=== PATIENT | male | born 1960 | race Caucasian/White ===

== ENCOUNTER 2017-03-02 11:17 | Emergency (ER) | payer OTHER ==
--- NOTE | 2017-03-02 11:46 | ER Document Report ---
ED Medical Screen (RME) - General Chief Complaint: Suicidal Ideation Stated Complaint: SUICIDAL IDEATION Time Seen by Provider: 03/02/17 11:39 Notes: Pt says he is thinking of hurting himself. Pt lives alone. Has tried to kill himself before. Has previous pysch admissions. Says he hears voices telling him to hurt himself. TRAVEL OUTSIDE OF THE [place] IN LAST 30 DAYS: No - Related Data Allergies/Adverse Reactions: No Known Allergies Allergy (Unverified 09/14/11 03:38) Past Medical History - Social History Frequency of alcohol use: None Drug Abuse: None - Past Medical History Cardiac Medical History: Reports: Hx Hypercholesterolemia, Hx Hypertension Renal/ Medical History: Denies: Hx Peritoneal Dialysis Psychiatric Medical History: Reports: Hx Schizophrenia - Immunizations Hx Diphtheria, Pertussis, Tetanus Vaccination: Yes Physical Exam - Vital signs Vitals: Temp Pulse Resp BP Pulse Ox 98.6 F 87 16 173/109 H 96 03/02/17 11:29 03/02/17 11:29 03/02/17 11:29 03/02/17 11:29 03/02/17 11:29 Course - Vital Signs Vital signs: Temp Pulse Resp BP Pulse Ox 98.6 F 87 20 173/109 H 96 03/02/17 11:29 03/02/17 11:29 03/02/17 11:36 03/02/17 11:29 03/02/17 11:29
[2017-03-02 12:34] LABS: APPEARANCE,URINE CLEAR; BILIRUBIN,URINE NEGATIVE (NEGATIVE); GLUCOSE, URINE 50 mg/dL (NEGATIVE); KETONES,URINE NEGATIVE (NEGATIVE); LEUKOCYTE ESTERASE,URINE NEGATIVE (NEGATIVE); NITRITE,URINE NEGATIVE (NEGATIVE); PROTEIN,URINE NEGATIVE (NEGATIVE); URINE SPECIFIC GRAVITY 1.003; UROBILINOGEN,URINE NEGATIVE mg/dL (<2.0)
[2017-03-02 12:52] LABS: URINE BARBITURATES SCREEN NEGATIVE; URINE METHADONE SCREEN NEGATIVE; URINE OPIATES LOW NEGATIVE; URINE PHENCYCLIDINE SCREEN NEGATIVE
[2017-03-02 12:54] LABS: ABSOLUTE BASOPHILS # (AUTO) 0.1 10^3/uL (0.0-0.2); ABSOLUTE EOSINOPHILS # (AUTO) 0.1 10^3/uL (0.0-0.6); ABSOLUTE LYMPHOCYTES (AUTO) 3.4 10^3/uL (0.5-4.7); ABSOLUTE MONOCYTES (AUTO) 0.6 10^3/uL (0.1-1.4); BASOPHILS % (AUTO) 1.4 % (0-2); HEMATOCRIT 43.5 % (37.9-51.0); HEMOGLOBIN 14.9 g/dL (13.5-17.0); HGB HCT DIFFERENCE 1.2; MEAN CORPUSCULAR HGB CONC 34.2 g/dL (32.0-36.0); MEAN CORPUSCULAR VOLUME 94 fl (80-97); MONOCYTES % (AUTO) 6.2 % (3-13); RED BLOOD COUNT 4.65 10^6/uL (4.35-5.55); SEGMENTED NEUTROPHILS % (AUTO) 58.4 % (42-78); WHITE BLOOD COUNT 10.3 10^3/uL (4.0-10.5)
--- NOTE | 2017-03-02 13:06 | ER Document Report ---
ED Psych Disorder / Suicide - General Mode of Arrival: Ambulatory Information source: Patient TRAVEL OUTSIDE OF THE [place] IN LAST 30 DAYS: No <MARKUS SHI - Last Filed: 03/02/17 13:23> <SUZE JJ - Last Filed: 03/02/17 18:18> <ANDI FENTON - Last Filed: 03/04/17 09:37> <MILES LANDRY - Last Filed: 03/04/17 09:58> - General Chief Complaint: Suicidal Ideation Stated Complaint: SUICIDAL IDEATION Time Seen by Provider: 03/02/17 11:39 Notes: Patient is a 56 year old male with history of schizophrenia that presents to the emergency department today with complaints of homicidal and suicidal ideation. Patient states that his harm thoughts are "towards everyone", no one in particular. Patient states he has been off of his psychiatric medications for one week because he ran out. Patient admits to cocaine usage recently. ( MARKUS SHI) - Related Data Allergies/Adverse Reactions: No Known Allergies Allergy (Verified 03/02/17 12:50) Home Medications: Current Home Medications Chlorpromazine HCl 50 mg PO DAILYP PRN 03/02/17 [History] Chlorpromazine HCl [Thorazine 50 mg Tablet] 200 mg PO QHS 03/02/17 [History] Hydroxyzine Pamoate 100 mg PO QHS 03/02/17 [History] Levothyroxine Sodium 200 mcg PO QAM 03/02/17 [History] Meloxicam 15 mg PO DAILY PRN 03/02/17 [History] Paroxetine HCl 40 mg PO QAM 03/02/17 [History] Past Medical History - General Information source: Patient, [facility] Records - Social History Smoking Status: Current Every Day Smoker Cigarette use (# per day): Yes Frequency of alcohol use: None Drug Abuse: None Lives with: Family Family History: Reviewed & Not Pertinent Patient has suicidal ideation: Yes Patient has homicidal ideation: Yes - Past Medical History Cardiac Medical History: Reports: Hx Hypercholesterolemia, Hx Hypertension Psychiatric Medical History: Reports: Hx Schizophrenia Surgical Hx: Negative - Immunizations Hx Diphtheria, Pertussis, Tetanus Vaccination: Yes <MARKUS SHI - Last Filed: 03/02/17 13:23> Review of Systems - Review of Systems Constitutional: No symptoms reported EENT: No symptoms reported Cardiovascular: No symptoms reported Respiratory: No symptoms reported Gastrointestinal: No symptoms reported Genitourinary: No symptoms reported Male Genitourinary: No symptoms reported Musculoskeletal: No symptoms reported Skin: No symptoms reported Hematologic/Lymphatic: No symptoms reported Neurological/Psychological: See HPI, Homicidal ideation, Suicidal ideation -: Yes All other systems reviewed and negative <MARKUS SHI - Last Filed: 03/02/17 13:23> Physical Exam <MARKUS SHI - Last Filed: 03/02/17 13:23> <SUZE JJ - Last Filed: 03/02/17 18:18> <ANDI FENTON - Last Filed: 03/04/17 09:37> <MILES LANDRY - Last Filed: 03/04/17 09:58> - Vital signs Vitals: Temp Pulse Resp BP Pulse Ox 98.6 F 87 16 173/109 H 96 03/02/17 11:29 03/02/17 11:29 03/02/17 11:29 03/02/17 11:29 03/02/17 11:29 - Notes Notes: Physical Exam: General: Alert. HEENT: Normocephalic. Atraumatic. PERRLA. Extraocular movements intact. Oropharynx clear. Neck: Supple. Respiratory: No respiratory distress. Abdominal: Normal Inspection. No distension. Extremities: Moves all four extremities. Neurological: Normal cognition. AAOx4. Normal speech. Some facial dystonia, rocking back and forth in the bed. Psychological: Endorses suicidal and homicidal ideation towards "every one". Skin: Warm. Dry. Normal color. (MARKUS SHI) Course - Laboratory Result Diagrams: 03/02/17 12:40 03/02/17 12:00 <MARKUS SHI - Last Filed: 03/02/17 13:23> - Laboratory Result Diagrams: 03/02/17 12:40 03/02/17 12:00 <SUZE JJ - Last Filed: 03/02/17 18:18> - Laboratory Result Diagrams: 03/02/17 12:40 03/02/17 12:00 <ANDI FENTON - Last Filed: 03/04/17 09:37> - Laboratory Result Diagrams: 03/02/17 12:40 03/02/17 12:00 <MILES LANDRY - Last Filed: 03/04/17 09:58> - Vital Signs Vital signs: Temp Pulse Resp BP Pulse Ox 98.5 F 77 18 139/75 H 99 03/04/17 06:14 03/04/17 06:14 03/04/17 06:14 03/04/17 06:14 03/04/17 06:14 - Laboratory Laboratory results interpreted by me: 03/02/17 03/02/17 03/02/17 12:00 12:00 12:40 RDW 15.0 H Creatinine 1.35 H Est GFR (Non-Af Amer) 54 L Direct Bilirubin 0.5 H ALT 20 L Urine Glucose (UA) 50 H Salicylates < 1.0 L Acetaminophen < 10 L Discharge <MARKUS SHI - Last Filed: 03/02/17 13:23> <SUZE JJ - Last Filed: 03/02/17 18:18> <ANDI FENTON - Last Filed: 03/04/17 09:37> <MILES LANDRY - Last Filed: 03/04/17 09:58> - Discharge Clinical Impression: Suicidal ideations, Has run out of medications, Schizoaffective disorder, bipolar type Depression Qualifiers: Depression Type: unspecified Qualified Code(s): F32.9 - Major depressive disorder, single episode, unspecified Condition: Stable Disposition: HOME, SELF-CARE Additional Instructions: DEPRESSION: Your evaluation reveals that you have mental depression. While symptoms may be vague, they often include disturbance of sleep, fatigue, loss of appetite , and general loss of interest in life. While depression may be a side effect of drugs, or a reaction to a major change in your life, many cases have no known cause. If depression is acute, and related to a major loss in your life, you can expect it to clear completely with time. If you have been depressed a long time , are prone to repeated bouts of depression or low mood, or have been thinking of suicide, get help. Depression can be treated with anti-depressant medication and counselling. Long-term depression will often take a few weeks to clear, even with appropriate medication. Follow-up care is important. SUICIDAL IDEATION: Suicidal ideation is a common medical term for thoughts about suicide, which may be as detailed as a formulated plan, without the suicidal act itself. Although most people who undergo suicidal ideation do not commit suicide, some go on to make suicide attempts. The range of suicidal ideation varies greatly from fleeting to detailed planning, role playing, and unsuccessful attempts. While thoughts about suicide are common, most people do not carry out serious actions to commit suicide. Based upon your evaluation and discussion with you, we do not believe you are currently at risk to act upon your thoughts of suicide. You have agreed to return to the Emergency Department, at any time , if you feel inclined to act upon your suicidal thoughts. FOLLOW-UP CARE: Please follow-up with your outpatient provider, the [facility], at 11:00 today. If you experience worsening or a significant change in your symptoms, notify the physician immediately or return to the Emergency Department at any time for re- evaluation. Referrals: [facility] [Provider Group] - 03/04/17 11:00 am Scribe Attestation: 03/02/17 17:08 I personally performed the services described in the documentation, reviewed and edited the documentation which was dictated to the scribe in my presence, and it accurately records my words and actions. (SUZE JJ) Scribe Documentation - Scribe Written by Daniel:: Daniel Toscano, 03/02/2017 1329 acting as scribe for :: Zay <MARKUS SHI - Last Filed: 03/02/17 13:23>
[2017-03-02 13:09] LABS: ALANINE AMINOTRANSFERASE 20 U/L (21-72); ALBUMIN 4.4 g/dL (3.5-5.0); ALKALINE PHOSPHATASE 78 U/L (38-126); ANION GAP 13 (5-19); ASPARTATE AMINO TRANSFERASE 28 U/L (17-59); BILIRUBIN,DIRECT 0.5 mg/dL (0.0-0.4); BILIRUBIN,TOTAL 0.8 mg/dL (0.2-1.3); BLOOD UREA NITROGEN 18 mg/dL (7-20); CALCIUM 9.4 mg/dL (8.4-10.2); CARBON DIOXIDE 26 mmol/L (22-30); CHLORIDE 105 mmol/L (98-107); CREATININE RESULT 1.35 mg/dL (0.52-1.25); GLUCOSE 83 mg/dL (75-110); POTASSIUM 4.4 mmol/L (3.6-5.0); SODIUM 144.1 mmol/L (137-145); TOTAL PROTEIN 7.8 g/dL (6.3-8.2)
[2017-03-02 13:15] LABS: ALCOHOL < 10 mg/dL (NONE DETECTED)
--- NOTE | 2017-03-02 13:23 | PSYCHOLOGICAL NOTE ---
Psych Note - Psych Note Psych Note: Patient is a 56-year-old male who presents directly [facility] with complaints of homicidal and suicidal ideations. Patient reports he is diagnosed with schizoaffective disorder bipolar type and has been off of his medications for roughly 1 week. Patient states he was struggling with a depressive episode, and did not go and visit his father at the senior living who shortly after. Patient states this occurred last week and at that time patient stopped taking his medications and did not leave the house. Patient states he is technically homeless but is residing in his family home which belonged to his mother but was left to he and his siblings. Patient states his siblings reside there as well and they do not get along. Patient reports he is struggling with racing thoughts wanting to hurt himself and hurt others patient denies wanting to hurt specific individuals patient reports he has attempted suicide in the past and states it was in 1987. Patient states [facility] and [facility] which he reports he is historically compliant apart from this episode. Patient reports he is hearing voices telling him to hurt himself and others who he thinks are after him or talking about him. Patient is alert and oriented mood is anxious with congruent affect. Patient is unable to maintain eye contact. Patient endorses suicidal and homicidal ideations but does deny means or plan. Patient endorses auditory command hallucinations. Patient denies visual hallucinations. Delusions were Noted when patient discussed feeling as though others were out to get him etc. Thought processes were guarded. Conversational speech was blunted. Intellectual abilities were estimated within average range. Attention and focus was poor. Insight, judgment, impulse control was fair as evidenced by [facility]. 295.70( F25.0) Schizoaffective disorder bipolar type It is recommended for involuntary commitment for further evaluation and disposition. Patient presents as a danger to himself and possibly others due to his thoughts of harming himself and others, medication noncompliance, auditory command hallucinations telling him to harm self and others, etc. I consulted with Dr. Gonzales in regards to the care management of this patient. EDMD is in agreement with disposition and recommendations.
--- NOTE | 2017-03-02 21:42 | EKG REPORT ---
SEVERITY:- ABNORMAL ECG - SINUS RHYTHM PROBABLE LEFT ATRIAL ABNORMALITY CONSIDER RIGHT VENTRICULAR HYPERTROPHY BORDERLINE R WAVE PROGRESSION, ANTERIOR LEADS ABNORMAL T, CONSIDER ISCHEMIA, LATERAL LEADS : Confirmed by: Fernanda Saucedo 02-Mar-2017 21:41:59
[2017-03-03] MEDS ORDERED: LORAZEPAM 1 MG TABLET PO ONE (04:20)
--- NOTE | 2017-03-03 04:21 | ER Document Report ---
Doctor's Note Notes: 03/03/17 04:21 Nurse confirmed the patient's been very anxious throughout the night and has been having hard time staying still. No and spoke with the patient. He is very anxious. Says he often a hard time sleeping. Is very fidgety in bed. I will order some Ativan to see if this helps calm him down. He has no other concerns or complaints at this time is actually very cooperative and pleasant despite his anxiety.
--- NOTE | 2017-03-03 08:37 | PSYCHOLOGICAL NOTE ---
Psych Note - Psych Note Psych Note: Conducted check in on patient who is a 56-year-old male under involuntary commitment at [facility]. Patient initially presented yesterday directly from the [facility] clinic due to suicidal and homicidal ideations, medication noncompliance, auditory hallucinations, and paranoia. A review of patient's EMR from overnight suggests he was cooperative, but anxious. EDMD did choose to continue patient's home medications yesterday as patient stated they were working for years when he took them; however, no medications were administered with the exception of one dose of Ativan to address his anxiety overnight. Did follow up with nurse this morning who is requesting clarification from pharmacy. Patient himself states he struggled sleeping, is restless, feels as though people are chasing him/following him. Patient reports continued racing thoughts. Patient is observed to be restless, moving around in bed, and anxious. Patient is alert and oriented mood is anxious and labile with congruent affect. Patient endorses suicidal and homicidal ideations but denies plan or means. Patient endorses auditory hallucinations commanding him to harm others. Delusions were noted and that patient feels people are out to get him. Thought processes were organized. Conversational speech was within normal limits for rate, tone, and prosody for this patient. Intellectual abilities were estimated within average range. Attention and focus were poor. Insight, judgment, impulse control were poor to fair. 295.70( F25.0) Schizoaffective disorder bipolar type It is recommended for involuntary commitment for further evaluation and disposition. Patient presents as a danger to himself and possibly others due to his thoughts of harming himself and others, medication noncompliance, auditory command hallucinations telling him to harm self and others, etc. I consulted with Dr. Gonzales in regards to the care management of this patient. EDDE is in agreement with disposition and recommendations.
[2017-03-03] MEDS ORDERED: CHLORPROMAZINE HCL 50 MG TABLET PO PRN (08:59)
[2017-03-03] MEDS ORDERED: MELOXICAM 15 MG TABLET PO PRN (08:59)
[2017-03-03] MEDS ORDERED: LEVOTHYROXINE SODIUM 0.1 MG TABLET PO ONE ×2 (10:00→10:15)
[2017-03-03] MEDS ORDERED: FLUOXETINE HCL 20 MG CAPSULE PO SCH (10:00)
[2017-03-03] MEDS ORDERED: PAROXETINE HCL 20 MG TABLET PO ONE (10:00)
[2017-03-03] MEDS ORDERED: BENZTROPINE MESYLATE 1 MG TABLET PO SCH (10:00)
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
[2017-03-03] MEDS ORDERED: HYDROXYZINE PAMOATE 50 MG CAPSULE PO SCH (22:00)
[2017-03-03] MEDS ORDERED: HYDROXYZINE PAMOATE 100 MG PO SCH (22:00)
[2017-03-03] MEDS ORDERED: CHLORPROMAZINE HCL 50 MG TABLET PO SCH (22:00)
[2017-03-04] MEDS ORDERED: PAROXETINE HCL 20 MG TABLET PO SCH (08:00)
[2017-03-04] MEDS ORDERED: PAROXETINE HCL 40 MG PO SCH (08:00)
[2017-03-04] MEDS ORDERED: (PENDING PHARMACY ID) (Levothyroxine Sodium [Levothyroxine Sodium] 200 MCG) PO SCH (08:00)
[2017-03-04] MEDS ORDERED: LEVOTHYROXINE SODIUM 0.1 MG TABLET PO SCH (08:00)
--- NOTE | 2017-03-04 09:37 | PSYCHOLOGICAL NOTE ---
Psych Note - Psych Note Psych Note: Conducted check in on patient: Patient disclosed he is "feeling a lot better... A lot safer." Patient states that "I could not focus anymore in something just happened... Something snapped. " Patient disclosed he was not eating and was in deep depression because his dad had . Patient states that the medication has helped a lot and denies current suicidal or homicidal ideation. Patient is alert and orientated to person, place, time and circumstance. Mood is euthymic with congruent affect; patient opening engaging with clinician and smiled. Patient denies current suicidal and homicidal ideation now that he is therapeutic on his medications. Delusions are absent and behaviors congruent with intact reality based presentation i.e. organized, linear, rational thinking. Eye contact was good. Conversational speech was within normal rate tone and prosody. Intellectual abilities appear to be within the average range. Attention and concentration were good. Insight, judgment, impulse control is fair due to patient's history of noncompliant on medication. Behavioral health team contacted [facility], patient's outpatient provider. Patient was last seen on Thursday03/02/2017 by his provider. [facility] was able to schedule an appointment for today at 11am. 295.70( F25.0) Schizoaffective disorder bipolar type It is recommended for rescinded involuntary commitment and is considered psychiatrically cleared. Patient no longer meets IVC criteria per [place] GS 122C. Patient denies current suicidal and homicidal ideation now that he is therapeutic on his medications. Delusions are absent and behaviors congruent with intact reality based presentation i.e. organized, linear, rational thinking. Patient has a follow up appointment with his mental health provider at the [facility] for today at 1100. Dr. Gonzales was consulted and the care and management of this patient; attending physician in agreement with recommendations and disposition.
--- NOTE | 2017-03-04 10:10 | ER Document Report ---
Doctor's Note Notes: 03/04/17 10:08 Rounds: Chart reviewed and patient interviewed. Patient says he is doing "much better". Denies having any suicidal thoughts at this time. Vital signs are normal. No new labs to review. Previously positive for cocaine. Patient appears to be medically stable for transfer or discharge. Mental health feels the patient can be discharged for outpatient follow-up at the [facility] clinic. Eyal Car MD
[2017-03-04 10:53] VITALS: BP 121/74
== END 2017-03-04 10:23 | disposition home or self-care (01) ==
LOC: ER 11:17
DX: F25.0 Schizoaffective disorder, bipolar type (principal); R45.851 Suicidal ideations; R45.850 Homicidal ideations; E78.00 Pure hypercholesterolemia, unspecified; I10 Essential (primary) hypertension; F17.210 Nicotine dependence, cigarettes, uncomplicated
CPT/HCPCS: 93005; 99285; 36415; 80307 ×4; 85025; 80053; 81001; 93010; J3490

== ENCOUNTER 2018-01-06 17:29 | Observation (INO) | payer SELFPAY ==
[2018-01-06] MEDS ORDERED: ASPIRIN 81 MG TABLET, CHEWABLE PO ONE (17:32)
[2018-01-06 17:51] LABS: ABSOLUTE EOSINOPHILS # (AUTO) 0.1 10^3/uL (0.0-0.6); ABSOLUTE MONOCYTES (AUTO) 0.6 10^3/uL (0.1-1.4); ABSOLUTE NEUT (AUTO) 6.6 10^3/uL (1.7-8.2); BASOPHILS % (AUTO) 0.5 % (0-2); EOSINOPHILS % (AUTO) 0.9 % (0-6); HEMATOCRIT 46.5 % (37.9-51.0); HEMOGLOBIN 15.8 g/dL (13.5-17.0); LYMPHOCYTES % (AUTO) 29.1 % (13-45); MEAN CORPUSCULAR HEMOGLOBIN 30.8 pg (27.0-33.4); MEAN CORPUSCULAR HGB CONC 34.1 g/dL (32.0-36.0); MEAN CORPUSCULAR VOLUME 90 fl (80-97); MONOCYTES % (AUTO) 6.1 % (3-13); PLATELET COUNT 234 10^3/uL (150-450); RED BLOOD COUNT 5.14 10^6/uL (4.35-5.55); RED CELL DISTRIBUTION WIDTH 13.8 % (11.5-14.0); SEGMENTED NEUTROPHILS % (AUTO) 63.4 % (42-78); TOTAL CELLS COUNTED % (AUTO) 100 %; WHITE BLOOD COUNT 10.4 10^3/uL (4.0-10.5)
--- NOTE | 2018-01-06 18:01 | RADIOLOGY REPORT (SQ) ---
EXAM DESCRIPTION: CHEST SINGLE VIEW COMPLETED DATE/TIME: 01/06/2018 5:47 pm REASON FOR STUDY: bed 18 svt COMPARISON: None. EXAM PARAMETERS: NUMBER OF VIEWS: One view. TECHNIQUE: Single frontal radiographic view of the chest acquired. RADIATION DOSE: NA LIMITATIONS: None. FINDINGS: LUNGS AND PLEURA: No consolidation, masses or pneumothorax. No pleural effusion. MEDIASTINUM AND HILAR STRUCTURES: Age-appropriate. HEART AND VASCULAR STRUCTURES: Heart normal in size. Normal vasculature. BONES: No acute findings. HARDWARE: None in the chest. OTHER: No other significant finding. IMPRESSION: NO ACUTE RADIOGRAPHIC FINDING IN THE CHEST. TECHNICAL DOCUMENTATION: JOB ID: [id number] 2010 [employer]- All Rights Reserved Reading location - IP/workstation name: [email or web address]
[2018-01-06 18:09] LABS: ALANINE AMINOTRANSFERASE 14 U/L (21-72); ALBUMIN 4.5 g/dL (3.5-5.0); ALKALINE PHOSPHATASE 95 U/L (38-126); ANION GAP 16 (5-19); ASPARTATE AMINO TRANSFERASE 21 U/L (17-59); BILIRUBIN,DIRECT 0.3 mg/dL (0.0-0.4); BILIRUBIN,TOTAL 1.3 mg/dL (0.2-1.3); BLOOD UREA NITROGEN 11 mg/dL (7-20); CARBON DIOXIDE 21 mmol/L (22-30); CHLORIDE 108 mmol/L (98-107); CREATINE KINASE 55 U/L (55-170); GLUCOSE 101 mg/dL (75-110); POTASSIUM 4.1 mmol/L (3.6-5.0)
--- NOTE | 2018-01-06 18:35 | RADIOLOGY REPORT (SQ) ---
EXAM DESCRIPTION: CT HEAD WITHOUT COMPLETED DATE/TIME: 01/06/2018 6:23 pm REASON FOR STUDY: confusion COMPARISON: 09/23/2011 TECHNIQUE: Axial images acquired through the brain without intravenous contrast. Images reviewed wi th bone, brain and subdural windows. Additional sagittal and coronal reconstructions were generated. Images stored on PACS. All CT scanners at this facility use dose modulation, iterative reconstruction, and/or weight based d osing when appropriate to reduce radiation dose to as low as reasonably achievable (ALARA). [facility]: Dose Right [facility]: CareDose [facility]: Dose Right [facility]: Teradose 4D [facility]: Smart Telepo RADIATION DOSE: CT Rad equipment meets quality standard of care and radiation dose reduction techniq ues were employed. CTDIvol: 53.2 mGy. DLP: 1150 mGy-cm. mGy. LIMITATIONS: None. FINDINGS: VENTRICLES: Normal size and contour. CEREBRUM: No masses. No hemorrhage. No midline shift. No evidence for acute infarction. Normal gra y/white matter differentiation. No areas of low density in the white matter. CEREBELLUM: No masses. No hemorrhage. No alteration of density. No evidence for acute infarction. EXTRAAXIAL SPACES: No fluid collections. No masses. ORBITS AND GLOBE: No intra- or extraconal masses. Normal contour of globe without masses. CALVARIUM: No fracture. PARANASAL SINUSES: No fluid or mucosal thickening. SOFT TISSUES: No mass or hematoma. OTHER: No other significant finding. IMPRESSION: NORMAL BRAIN CT WITHOUT CONTRAST. EVIDENCE OF ACUTE STROKE: NO. COMMENT: Quality ID # [id number]: Final reports with documentation of one or more dose reduction techniques (e.g., Automated exposure control, adjustment of the mA and/or kV according to patient size, use of iterative reconstruction technique) TECHNICAL DOCUMENTATION: JOB ID: [id number] [employer]- All Rights Reserved Reading location - IP/workstation name: [email or web address]
[2018-01-06] MEDS ORDERED: NORMAL SALINE 1000 ML 1,000 ML IV ONE ×2 (18:37→20:03)
--- NOTE | 2018-01-06 18:39 | ER Document Report ---
ED General - General Chief Complaint: Chest Pain Stated Complaint: HEART ISSUES Time Seen by Provider: 01/06/18 17:41 Mode of Arrival: Medic Information source: Patient, Emergency Med Personnel, [facility] Records Cannot obtain history due to: Altered mental status Notes: 57-year-old male with hypertension, hyperlipidemia, schizophrenia presents via EMS after they were called by [employer] when the patient was found panhandling. Upon EMS arrival they found the patient's heart rate to be 170 and ekg monitor tech appeared that the rhythm was SVT. Patient was given 6 mg of adenosine and converted. They report an episode of hypotension which resolved prior to arrival. Patient did receive 500 cc of IV fluids prior to arrival. Upon my exam patient is confused but admits to suicidal ideation. When asked about homicidal ideation he states "yes I want to kill the people who are laying the carpet". He does admit to visual hallucinations of dogs in his room. He also admits to auditory hallucinations which tell him that "I am a bad person and I need to straighten up". Patient cannot tell me whether or not he has been compliant with his psychiatric medications. He states he is currently living with his brother. he has no physical complaints at this time. TRAVEL OUTSIDE OF THE [place] IN LAST 30 DAYS: No - HPI Onset: Just prior to arrival Onset/Duration: Sudden Quality of pain: No pain Severity: None - Related Data Allergies/Adverse Reactions: No Known Allergies Allergy (Verified 03/02/17 12:50) Past Medical History - General Information source: Patient, Emergency Med Personnel, [facility] Records Cannot obtain history due to: Altered mental status - Social History Smoking Status: Unknown if Ever Smoked Drug Abuse: Cocaine Lives with: Family Family History: Reviewed & Not Pertinent Patient has suicidal ideation: No Patient has homicidal ideation: No - Past Medical History Cardiac Medical History: Reports: Hx Hypercholesterolemia, Hx Hypertension Renal/ Medical History: Denies: Hx Peritoneal Dialysis Psychiatric Medical History: Reports: Hx Schizophrenia - Immunizations Hx Diphtheria, Pertussis, Tetanus Vaccination: Yes Review of Systems - Review of Systems -: Yes ROS unobtainable due to patient's medical condition Physical Exam - Vital signs Vitals: Resp 18 01/06/18 17:32 - Notes Notes: PHYSICAL EXAMINATION: GENERAL: Unkept, no acute distress. HEAD: Atraumatic, normocephalic. EYES: Pupils equal round and reactive to light, extraocular movements intact, sclera anicteric, conjunctiva are normal. ENT: Nares patent, oropharynx clear without exudates. Dry mucous membranes. NECK: Normal range of motion, supple without lymphadenopathy LUNGS: Breath sounds clear to auscultation bilaterally and equal. No wheezes rales or rhonchi. HEART: Regular rate and rhythm without murmurs ABDOMEN: Soft, nontender, nondistended abdomen. No guarding, no rebound. No masses appreciated. Musculoskeletal: Normal range of motion, no pitting or edema. No cyanosis. NEUROLOGICAL: Cranial nerves grossly intact. Normal sensory, motor exams. Patient is confused but cooperative. GCS 15 PSYCH: Admits to suicidal ideation, homicidal ideation, visual and auditory hallucinations. SKIN: Warm, Dry, normal turgor, no rashes or lesions noted. Course - Re-evaluation Re-evalutation: Laboratory 01/06/18 01/06/18 01/06/18 16:10 16:10 16:10 WBC 10.4 RBC 5.14 Hgb 15.8 Hct 46.5 MCV 90 MCH 30.8 MCHC 34.1 RDW 13.8 Plt Count 234 Seg Neutrophils % 63.4 Lymphocytes % 29.1 Monocytes % 6.1 Eosinophils % 0.9 Basophils % 0.5 Absolute Neutrophils 6.6 Absolute Lymphocytes 3.0 Absolute Monocytes 0.6 Absolute Eosinophils 0.1 Absolute Basophils 0.0 Sodium 145.0 Potassium 4.1 Chloride 108 H Carbon Dioxide 21 L Anion Gap 16 BUN 11 Creatinine 1.83 H Est GFR ( Amer) 46 L Est GFR (Non-Af Amer) 38 L Glucose 101 Calcium 10.0 Total Bilirubin 1.3 Direct Bilirubin 0.3 Neonat Total Bilirubin Not Reportable Neonat Direct Bilirubin Not Reportable Neonat Indirect Bili Not Reportable AST 21 ALT 14 L Alkaline Phosphatase 95 Creatine Kinase 55 CK-MB (CK-2) 0.66 Troponin I < 0.012 Total Protein 8.0 Albumin 4.5 Salicylates Acetaminophen Serum Alcohol 01/06/18 01/06/18 16:10 22:46 WBC RBC Hgb Hct MCV MCH MCHC RDW Plt Count Seg Neutrophils % Lymphocytes % Monocytes % Eosinophils % Basophils % Absolute Neutrophils Absolute Lymphocytes Absolute Monocytes Absolute Eosinophils Absolute Basophils Sodium Potassium Chloride Carbon Dioxide Anion Gap BUN Creatinine Est GFR ( Amer) Est GFR (Non-Af Amer) Glucose Calcium Total Bilirubin Direct Bilirubin Neonat Total Bilirubin Neonat Direct Bilirubin Neonat Indirect Bili AST ALT Alkaline Phosphatase Creatine Kinase CK-MB (CK-2) Troponin I 0.032 Total Protein Albumin Salicylates < 1.0 L Acetaminophen < 10 L Serum Alcohol < [address] 01/06/18 00:00 IMPRESSION: NORMAL BRAIN CT WITHOUT CONTRAST. EVIDENCE OF ACUTE STROKE: NO. Chest X-Ray 01/06/18 17:32 IMPRESSION: NO ACUTE RADIOGRAPHIC FINDING IN THE CHEST. 57-year-old male with hypertension, hyperlipidemia, schizophrenia presents via EMS after they were called by [facility] when the patient was found "panhandling." EMS reported a rhythm of SVT with a heart rate of 170 for which adenosine was given. Vital signs stable upon arrival. Patient is normotensive, not hypoxic nor tachycardic. Patient initially confused but now has a normal neurologic exam. Although he has been unable to provide me the history which led him to the emergency room he has been awake, alert and oriented for most of his ED course. Patient reevaluated multiple times and he remains cooperative, resting comfortably and continuously denies any physical complaints including chest pain , shortness of breath, headache or abdominal pain. 01/06/18 23:58 Spoke to hospitalist regarding admission for SAILAJA, uptrending troponin. Patient has had no chest pain throughout his ED course. Patient has had no tachycardia since arriving in the emergency rooom nor has he had any episodes of hypotension. Except for mild confusion which quickly resolved, he has a normal neurologic exam, . IVC paperwork has been initiated due to the patient's admission of SI, HI, auditory and visual hallucinations. CMP does show an SAILAJA with a creatinine of 1.83. Patient has had an SAILAJA in the past and he was provided fluids today. Repeat BMP pending. EKG was obtained and showed no evidence of ACS. If the patient truly was in SVT for a prolonged amount of time and uptrending troponin could be expected. At this time I will repeat a third troponin and determine whether or not patient requires admission. Patient signed out to Dr. Solitario with urine drug screen, repeat troponin and BMP pending. 01/07/18 02:32 - Vital Signs Vital signs: Temp Pulse Resp BP Pulse Ox 98.1 F 17 164/90 H 96 01/06/18 20:05 01/07/18 01:01 01/07/18 01:01 01/07/18 01:01 - Laboratory Result Diagrams: 01/06/18 16:10 01/06/18 16:10 Laboratory results interpreted by me: 01/06/18 01/06/18 16:10 16:10 Chloride 108 H Carbon Dioxide 21 L Creatinine 1.83 H Est GFR ( Amer) 46 L Est GFR (Non-Af Amer) 38 L ALT 14 L Salicylates < 1.0 L Acetaminophen < 10 L - Diagnostic Test Radiology reviewed: Image reviewed, Reports reviewed - EKG Interpretation by Me EKG shows normal: Sinus rhythm Rate: Normal Rhythm: NSR Discharge - Discharge Clinical Impression: Suicidal ideation, Renal insufficiency, Paroxysmal SVT (supraventricular tachycardia), Auditory hallucinations, Visual hallucinations, Homicidal ideation , History of schizophrenia Condition: Fair Forms: Elevated Blood Pressure
[2018-01-06 18:49] LABS: ACETAMINOPHEN < 10 ug/mL (10-30); ALCOHOL < 10 mg/dL (NONE DETECTED); SALICYLATE < 1.0 mg/dL (2.0-20.0)
[2018-01-06 18:54] LABS: CREATINE KINASE MB 0.66 ng/mL (<4.55)
[2018-01-06 18:56] LABS: TROPONIN I < 0.012 ng/mL
[2018-01-07] MEDS ORDERED: NORMAL SALINE 1000 ML 1,000 ML IV ONE (00:03)
[2018-01-07 00:32] LABS: URINE AMPHETAMINES SCREEN NEGATIVE; URINE BARBITURATES SCREEN NEGATIVE; URINE BENZODIAZEPINES SCREEN NEGATIVE; URINE COCAINE SCREEN UNCONFIRMED POSITIVE; URINE MARIJUANA (THC) SCREEN UNCONFIRMED POSITIVE; URINE METHADONE SCREEN NEGATIVE; URINE PHENCYCLIDINE SCREEN NEGATIVE
[2018-01-07 02:43] LABS: ANION GAP 6 (5-19); BLOOD UREA NITROGEN 12 mg/dL (7-20); CALCIUM 8.6 mg/dL (8.4-10.2); CARBON DIOXIDE 27 mmol/L (22-30); CHLORIDE 112 mmol/L (98-107); GLUCOSE 93 mg/dL (75-110); POTASSIUM 4.5 mmol/L (3.6-5.0)
--- NOTE | 2018-01-07 09:55 | ER Document Report ---
Doctor's Note Notes: 01/07/18 09:47 Patient was seen and examined this morning, he states he is feeling much better , I discussed his laboratory data including slightly elevated troponins overnight, we will plan on repeating EKG and troponin this morning, and if his troponin is downtrending, and EKG is unchanged, patient will be cleared from medical standpoint, and as well as a psychiatric standpoint, he was seen by the behavioral health team as well, and from their standpoint the patient is not an immediate threat to himself or others which I agree. If there is stable or increased troponin will discuss disposition at that point. 01/07/18 10:52 Repeat EKG demonstrates sinus rhythm with a ventricular rate of 64 bpm, normal axis, normal intervals, this is compared with prior EKG from 01/06/2018, without significant change. 01/07/18 12:40 Case was discussed with both cardiology and the hospitalist as noted in the note , patient will be admitted for observation for continued cardiac evaluation, and inpatient stress testing. Patient agreeable to plan of care.
--- NOTE | 2018-01-07 10:06 | PSYCHOLOGICAL NOTE ---
Psych Note - Psych Note Psych Note: Reason for consult: Suicidal/Homicidal ideation and psychosis Patient appeared confused but admits to suicidal ideation during his evaluation by the attending physician. When asked about homicidal ideation he stated "yes I want to kill the people who are laying the carpet". He also disclosed visual hallucinations of dogs in his room.and reports auditory hallucinations "I am a bad person and I need to straighten up." Patient disclosed that he is feeling better than yesterday. He denies any thoughts of wanting to harm himself and states that yesterday he just got mad people was very frustrated. He reports he became very frustrated when he tried parking and never had taken up all the handicap spots. He confirms that he takes his medications and states "my brother watches me do it every day" however can admits that he did not take it yesterday. When asked if he ever sees or hears things that confuse her scare him he states not today but he confirms he did yesterday. Patient still attends the local [facility] for outpatient mental health services and sees them weekly. Patient is alert and orientated to person, place, time and circumstance. Mood is euthymic with congruent affect. Patient denies suicidal and homicidal ideation. Delusions are absent behaviors congruent with intact reality based presentation i.e. organized and linear thought process. Eye contact was well- maintained. Conversational speech was within normal rate, tone and prosody. Intellectual abilities appear to be within average range. Attention and concentration were good. Insight, judgment, impulse control are fair. Clinician notes patient does have some psychomotor agitation as evidenced by shaking of leg movement of arms. No medication recommendations at this time Diagnosis 295.70( F25.0) Schizoaffective disorder bipolar type Impression/plan: It is recommended for rescinded involuntary commitment and is considered cleared from acute psychiatric services. Patient no longer meets IVC criteria per [place] GS 122C. Patient denies current suicidal and homicidal ideation and discloses yesterday he was "just upset at people." Delusions are absent and behaviors congruent with intact reality based presentation i.e. organized, linear, rational thinking. Patient is noted to have been outside in the heat and was having some medical issues that may have contributed to his initial presentation. Patient has outpatient mental health provider with the [facility] that he sees weekly. Dr. Gonzales was consulted and the care and management of this patient; attending physician in agreement with recommendations and disposition.
--- NOTE | 2018-01-07 14:26 | EKG REPORT ---
SEVERITY:- ABNORMAL ECG - SINUS RHYTHM PROBABLE LEFT ATRIAL ABNORMALITY CONSIDER RIGHT VENTRICULAR HYPERTROPHY BORDERLINE PROLONGED QT INTERVAL : Confirmed by: Jesse Frazier MD 07-Jan-2018 14:25:38
--- NOTE | 2018-01-07 14:26 | EKG REPORT ---
SEVERITY:- ABNORMAL ECG - SINUS RHYTHM MARKEDLY POSTERIOR QRS AXIS ABNRM R PROG, CONSIDER ASMI OR LEAD PLACEMENT NONSPECIFIC T ABNORMALITIES, LATERAL LEADS : Confirmed by: Jesse Frazier MD 07-Jan-2018 14:25:26
--- NOTE | 2018-01-07 16:06 | PDOC H&P ---
History of Present Illness Admission Date/PCP: 01/07/18 13:07 Patient complains of: Brought in by EMS; SVT and hypertension History of Present Illness: EZIO SAMANIEGO is a 57 year old male who apparently was panhandling and the police was called and then EMS was called because the patient was in SVT and was hypotensive. He received 6 mg of adenosine 500 cc of fluids. This was resolved when he came to the emergency room. His troponin was slightly elevated and he apparently expressed suicidal ideation and psych eval was done in the emergency room and the patient was cleared. He is currently comfortable and in hospital room denies any symptoms. Past Medical History Cardiac Medical History: Reports: Hyperlipidema, Hypertension Psychiatric Medical History: Reports: Depression Social History Lives with: Family Smoking Status: Current Every Day Smoker Cigarettes Packs Per Day: 1 Number of Years Smokin Last Time Smoked: 05/11/2011 Frequency of Alcohol Use: None Hx Recreational Drug Use: Yes Drugs: Cocaine, Marijuana Hx Prescription Drug Abuse: No Family History Family History: None Parental Family History Reviewed: Yes Children Family History Reviewed: Yes Sibling(s) Family History Reviewed.: Yes Medication/Allergy Home Medications: Chlorpromazine HCl 50 mg PO DAILYP PRN 03/02/17 Chlorpromazine HCl [Thorazine 50 mg Tablet] 200 mg PO QHS 03/02/17 Hydroxyzine Pamoate 100 mg PO QHS 03/02/17 Levothyroxine Sodium 200 mcg PO QAM 03/02/17 Meloxicam 15 mg PO DAILY PRN 03/02/17 Paroxetine HCl 40 mg PO QAM 03/02/17 Allergies/Adverse Reactions: No Known Allergies Allergy (Verified 03/02/17 12:50) Review of Systems All systems: reviewed and no additional remarkable complaints except as stated Physical Exam Vital Signs: Temp Pulse Resp BP Pulse Ox 98.0 F 64 22 H 105/82 100 01/07/18 14:27 01/07/18 14:30 01/07/18 14:27 01/07/18 14:27 01/07/18 14:27 General appearance: PRESENT: no acute distress, well-developed, well-nourished Head exam: PRESENT: atraumatic, normocephalic Eye exam: PRESENT: conjunctiva pink, EOMI, PERRLA. ABSENT: scleral icterus Ear exam: PRESENT: normal external ear exam Mouth exam: PRESENT: moist, neck supple, tongue midline Teeth exam: PRESENT: poor dentation Neck exam: ABSENT: carotid bruit, JVD, lymphadenopathy, meningismus, tenderness , thyromegaly Respiratory exam: PRESENT: clear to auscultation hal. ABSENT: rales, rhonchi, wheezes Cardiovascular exam: PRESENT: RRR. ABSENT: diastolic murmur, rubs, systolic murmur Pulses: PRESENT: normal radial pulses, normal dorsalis pedis pul Vascular exam: PRESENT: normal capillary refill GI/Abdominal exam: PRESENT: normal bowel sounds, soft. ABSENT: distended, guarding, mass, organolmegaly, rebound, tenderness Rectal exam: PRESENT: deferred Extremities exam: PRESENT: full ROM. ABSENT: calf tenderness, clubbing, pedal edema Neurological exam: PRESENT: alert, awake, oriented to person, oriented to place , oriented to time, oriented to situation, CN II-XII grossly intact. ABSENT: motor sensory deficit Psychiatric exam: PRESENT: anxious, unusual affect. ABSENT: homicidal ideation , suicidal ideation Skin exam: PRESENT: dry, intact, warm. ABSENT: cyanosis, rash Results Impressions: Head CT 01/06/18 00:00 IMPRESSION: NORMAL BRAIN CT WITHOUT CONTRAST. EVIDENCE OF ACUTE STROKE: NO. Chest X-Ray 01/06/18 17:32 IMPRESSION: NO ACUTE RADIOGRAPHIC FINDING IN THE CHEST. Assessment & Plan - Plan Summary Plan Summary: Patient is currently completely asymptomatic We will admit him for observation to telemetry Continue aspirin daily He is cleared by psych Cardiology is consulted IV fluid hydration and clinical monitoring DVT prophylaxis We will restart his psych medications once they are reconciled by the pharmacy His slight bump in troponin probably related to SVT, dehydration and cocaine abuse His creatinine actually is baseline Possibly discharge tomorrow once cleared by cardiology
[2018-01-07] MEDS: NORMAL SALINE 1000 ML 1,000 ML IV PRN (16:13)
--- NOTE | 2018-01-07 20:00 | PDOC CONSULTATION ---
Consultation Consult Date: 01/07/18 Attending physician:: JOSE DAMON Consult reason:: Abnormal troponin I History of Present Illness Admission Date/PCP: 01/07/18 13:07 Patient complains of: Palpitations History of Present Illness: EZIO SAMANIEGO is a 57 year old male with hypertension, hyperlipidemia, schizophrenia presents via EMS after they were called by [facility] when the patient was found panhandling. Upon EMS arrival they found the patient's heart rate to be 170 and school speech therapist appeared that the rhythm was SVT. Patient was given 6 mg of adenosine and converted. They report an episode of hypotension which resolved prior to arrival. Patient did receive 500 cc of IV fluids prior to arrival. Upon my exam patient is confused but admits to suicidal ideation. When asked about homicidal ideation he states "yes I want to kill the people who are laying the carpet". He does admit to visual hallucinations of dogs in his room. He also admits to auditory hallucinations which tell him that "I am a bad person and I need to straighten up". Patient cannot tell me whether or not he has been compliant with his psychiatric medications. He states he is currently living with his brother. he has no physical complaints at this time. It seems there is questionable history of syncope. Patient subsequently had troponin I elevation. I was therefore asked to see this patient. Patient on questioning admitted to having some transient chest pain especially when his heart was beating fast. Patient also claims that he almost passed out in the emergency room.. He avoided eye contact. Past Medical History Cardiac Medical History: Reports: Hyperlipidema, Hypertension Psychiatric Medical History: Reports: Depression Social History Information Source: Patient Lives with: Family Smoking Status: Current Every Day Smoker Cigarettes Packs Per Day: 1 Number of Years Smokin Last Time Smoked: 05/11/2011 Frequency of Alcohol Use: None Hx Recreational Drug Use: Yes Drugs: Cocaine, Marijuana Hx Prescription Drug Abuse: No - Advance Directive Resuscitation Status: Full Code Family History Family History: None Parental Family History Reviewed: No Children Family History Reviewed: No Sibling(s) Family History Reviewed.: No - Not available Medication/Allergy Home Medications: Hydroxyzine Pamoate 100 mg PO QHS 03/02/17 Levothyroxine Sodium 200 mcg PO Q6AM 03/02/17 Meloxicam 15 mg PO DAILYP PRN 03/02/17 Benztropine Mesylate [Cogentin 1 mg Tablet] 2 mg PO Q12HP PRN 01/07/18 Fluoxetine HCl [Prozac] 20 mg PO DAILY 01/07/18 Gabapentin [Neurontin 300 mg Capsule] 300 mg PO Q8 01/07/18 Ranitidine HCl [Zantac 150 mg Tablet] 300 mg PO BID 01/07/18 Ziprasidone HCl [Geodon 40 mg Capsule] 40 mg PO Q12 01/07/18 Allergies/Adverse Reactions: No Known Allergies Allergy (Verified 03/02/17 12:50) Review of Systems Review of Systems: Please see history of present illness and past medical history as wall. Constitutional: No fever or chills reported. Head : No recent chronic headaches, recent head injury. Eyes: No recent eye pain, diplopia, redness, discharge, acute visual changes. Ears: No recent chronic ear pain, acute hearing loss, ear discharge. Oral cavity: No recent ulcerations, bleeding, oral cavity discomfort. Neck: No recent acute neck pain reported. Hematologic: No recent easy bruising or bleeding. Lymphatic: No recent lymph node enlargement reported. Cardiovascular system review: See history of present illness. Respiratory system review: No hemoptysis or blood clots in the lungs reported. Mild Shortness of breath on exertion Gastrointestinal system review: Negative for any recent acute hematemesis, melena. Genitourinary system review: No recent acute or chronic hematuria, flank pain, UTI etc. reported. Skin system review: Negative for any recent abnormal bruising, no rash, no pruritus reported. Neurologic: No prior history of strokes, mini strokes, seizure disorder. Psychologic: Positive history of major psychosis/major depression reported. Musculoskeletal: Minor aches and pains reported. No acute joint swelling reported. Endocrine: No recent polyuria, polydipsia, recent heat or cold intolerance. Physical Exam Vital Signs: Temp Pulse Resp BP Pulse Ox 98.0 F 64 22 H 105/82 100 01/07/18 14:27 01/07/18 14:30 01/07/18 14:27 01/07/18 14:27 01/07/18 14:27 Intake & Output 01/06/18 01/07/18 01/08/18 06:59 06:59 06:59 Intake Total 430 Balance 430 Exam: GENERAL: well-nourished and in no acute distress. Alert and oriented x3 HEAD: Atraumatic, normocephalic. EYES: Pupils equal round and reactive to light, extraocular movements intact, sclera anicteric, conjunctiva are normal. ENT: TMs normal, nares patent, oropharynx clear without exudates. Moist mucous membranes. No oral ulcerations or bleeding gums noted NECK: supple without lymphadenopathy. Trachea is central. No cervical or axillary lymphadenopathy noted. Carotids are 2+, JVD WNL LUNGS: Respiration seems nonlabored, no significant accessory muscle action noted. Breath sounds clear to auscultation bilaterally and equal noted. No wheezes rales or rhonchi noted. No significant dullness noted on percussion. CHEST: Palpation of the chest wall shows no significant chest wall tenderness. 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 ABDOMEN: Soft, no significant tenderness appreciated, normoactive bowel sounds. No guarding, no rebound. No rigidity noted . No masses appreciated. EXTREMITIES: Pedal pulses are 1-2+, no calf tenderness noted. No clubbing or cyanosis. negative pedal edema noted NEUROLOGICAL: Focused neurological exam showed no significant neurologic deficit. Normal speech, no focal weakness appreciated. PSYCH: Judgment and insight seems impaired. SKIN: No significant ecchymosis, skin is noted to be warm. MUSCULOSKELETAL EXAM: No significant acute joint swelling noted. Results EKG Comments: Shows sinus rhythm, no acute ST-T wave changes are noted. Impressions: Head CT 01/06/18 00:00 IMPRESSION: NORMAL BRAIN CT WITHOUT CONTRAST. EVIDENCE OF ACUTE STROKE: NO. Chest X-Ray 01/06/18 17:32 IMPRESSION: NO ACUTE RADIOGRAPHIC FINDING IN THE CHEST. Assessment & Plan - Diagnosis (1) Elevated troponin Is this a current diagnosis for this admission?: Yes (2) History of schizophrenia Is this a current diagnosis for this admission?: Yes (3) Paroxysmal SVT (supraventricular tachycardia) Is this a current diagnosis for this admission?: Yes (4) Cocaine abuse Is this a current diagnosis for this admission?: Yes (5) Tobacco abuse Is this a current diagnosis for this admission?: Yes (6) Chest pain Qualifiers: Chest pain type: unspecified Qualified Code(s): R07.9 - Chest pain, unspecified Is this a current diagnosis for this admission?: Yes (7) Near syncope Is this a current diagnosis for this admission?: Yes (8) Hypertension Qualifiers: Hypertension type: unspecified Qualified Code(s): I10 - Essential (primary ) hypertension Is this a current diagnosis for this admission?: Yes (9) Hyperlipidemia Qualifiers: Hyperlipidemia type: unspecified Qualified Code(s): E78.5 - Hyperlipidemia , unspecified Is this a current diagnosis for this admission?: Yes - Notes Notes: 2D echo and nuclear stress test. Supraventricular tachycardia, responded to adenosine therefore AV node reentrant type. Patient could be discharged on some Cardizem. Digoxin should also work. Abnormal troponin I elevation: Possibly related to his VT. However patient did admit to having some chest pains. Patient to be scheduled for a nuclear stress test. A 2D echocardiogram is also been performed. Syncope/near syncope: There is history of this. Possibly related to SVT. Tobacco abuse: Patient has been advised to quit smoking. Cocaine abuse: Patient has been advised to stop cocaine abuse. Hypertension: Recommend good control of blood pressure. Blood pressure goal 140 /90 or less. Hyperlipidemia: Recommend statin therapy with LDL goal less than 70 feasible. - Time Time Spent: 30 to 50 Minutes - CODE STATUS was discussed, patient remains full code. More than 50% of the time spent coordinating care, discussing management plans with involved caregivers. Management plans discussed with involved personnels. Medical decision making was of moderate to high complexity, patient 's has multiple comorbidities.
[2018-01-07] MEDS: ZIPRASIDONE HCL 40 MG CAPSULE PO SCH (21:53)
[2018-01-07] MEDS: GABAPENTIN 300 MG CAPSULE PO SCH (21:53)
[2018-01-08] MEDS: NORMAL SALINE 1000 ML 1,000 ML IV PRN (02:14)
[2018-01-08] MEDS: GABAPENTIN 300 MG CAPSULE PO SCH ×2 (05:37→14:01)
[2018-01-08 06:37] LABS: HEMATOCRIT 42.8 % (37.9-51.0); HEMOGLOBIN 14.5 g/dL (13.5-17.0); MEAN CORPUSCULAR HEMOGLOBIN 30.6 pg (27.0-33.4); MEAN CORPUSCULAR HGB CONC 33.9 g/dL (32.0-36.0); MEAN CORPUSCULAR VOLUME 90 fl (80-97); PLATELET COUNT 148 10^3/uL (150-450); RED BLOOD COUNT 4.74 10^6/uL (4.35-5.55); RED CELL DISTRIBUTION WIDTH 13.8 % (11.5-14.0); WHITE BLOOD COUNT 6.4 10^3/uL (4.0-10.5)
[2018-01-08 06:58] LABS: ANION GAP 9 (5-19)
[2018-01-08 07:35] LABS: BLOOD UREA NITROGEN 9 mg/dL (7-20); CALCIUM 8.9 mg/dL (8.4-10.2); CARBON DIOXIDE 26 mmol/L (22-30); CHLORIDE 112 mmol/L (98-107); GLUCOSE 82 mg/dL (75-110); POTASSIUM 4.2 mmol/L (3.6-5.0); SODIUM 147.1 mmol/L (137-145)
[2018-01-08] MEDS ORDERED: ENOXAPARIN SODIUM INJ 40 MG/0.4 ML DISP.SYRIN SUBCUT SCH (10:00)
[2018-01-08] MEDS ORDERED: ASPIRIN 81 MG TABLET, CHEWABLE PO SCH (10:00)
[2018-01-08] MEDS ORDERED: REGADENOSON INJ 0.4 MG/5 ML DISP.SYRIN IV ONE (10:36)
[2018-01-08] MEDS: ZIPRASIDONE HCL 40 MG CAPSULE PO SCH (11:02)
--- NOTE | 2018-01-08 12:38 | DRAGON STRESS TEST REPORT ---
INTRAVENOUS LEXISCAN CARDIOLITE STRESS TEST USING SINGLE PHOTON EMMISION COMPUTERIZED TOMOGRAPHIC. DATE OF PROCEDURE: January 08, 2018, INDICATION : Chest pain CARDIAC RISK FACTORS: Hypertension, dyslipidemia, tobacco abuse RESTING EKG: Sinus rhythm, no significant baseline ST-T wave changes STRESS EKG: No significant ST segment changes noted with LexiScan bolus REASON FOR TERMINATION: Protocol. PROCEDURE REPORT: Baseline heart rate 60 beats per minute with blood pressure of 158/104. Patient had no significant complaints. Patient was bolused with Lexiscan 0.4 mg intravenously followed by saline bolus. Heart rate at 2 minutes post bolus 78 with a blood pressure of 138/86. 3 minutes post bolus heart rate 73 with blood pressure of 161/98. No significant EKG changes were noted. Patient had no significant complaints during the procedure or postprocedure. CONCLUSIONS: Normal EKG and hemodynamic response to IV LexiScan. NUCLEAR DATA: At rest the patient was given 14.23 millicuries of technetium 99 sestamibi injected intravenously. As per protocol rest gated SPECT images were obtained. On day of stress test, the patient was given intravenous LexiScan at a dose of 0.4 mg in 5 mL intravenously, followed by flush with normal saline. Subsequently the stress dose of 46.5 millicuries of technetium 99 sestamibi was injected intravenously. As per protocol stress gated images were obtained. NUCLEAR INTERPRETATION: Both raw and processed data were used for interpretation. Visual, qualitative, computer-generated quantitative data was used. There was good myocardial uptake of technetium compound. Motion artifact and soft tissue attenuations were noted. Increased visceral uptake was noted. No definitive areas of transient perfusion defect noted, No definitive areas of fixed perfusion defect or scars noted. EKG gated imaging showed LV EF at 63 %, rest and stress gated EF similar visually. T. I D. ratio was 1.20. Lung heart ratio noted to be within normal limits 0.40. No significant extracardiac and abnormal radiotracer activities were noted. RV free wall uptake was noted to be WNL. IMPRESSION: Also refer to comments under nuclear interpretation. Also test results needs to be interpreted in the context of pretest probability. 1. No definitive areas of transient perfusion defect noted. 2. There is no definitive scintigraphic evidence of myocardial infarction/scar. 3. EKG gated imaging shows left ventricular ejection fraction of approx. 63 %. 4. Clinical correlation requested as occasionally single vessel disease or balanced ischemia could be missed. In approximately 10% of the cases Lexiscan may not cause adequate vasodilatory stress. RECOMMENDATIONS: Aggressive risk factor modification and medical management. Further evaluation may be needed if continued symptoms or other high risk indicators are noted on clinical evaluation. Close cardiology follow-up is also recommended. Clinical correlation with echocardiogram derived ejection fraction. Inability to exercise by itself can lead to increased cardiovascular event risks. Consider cardiology consultation and or follow-up if clinically indicated. I am available for cardiology evaluation and consultation if requested by the accounting manager, unless patient already has a foreign language professor. Dr. Brittany Saucedo. MRCP Board certified in cardiology and sleep medicine. Board certified in nuclear cardiology, adult echocardiography. SHRUTHI
--- NOTE | 2018-01-08 12:52 | XCELERA REPORT ---
[address] [address] Transthoracic Echocardiogram Report Name: EZIO SAMANIEGO Age: 57 yrs Gender: Male : 1960 Patient Status: Inpatient Patient Location: [address] [place] [address] Study Date: 01/08/2018 09:55 AM Procedure: A complete two-dimensional transthoracic echocardiogram was performed (2D, M-mode, spectral and color flow Doppler). The study was technically adequate with some images being suboptimal in quality. Reason For Study: Abnormal troponin I, syncope, SVT Ordering Physician: FERNANDA KRAFT Performed By: Kusum Garcia Interpretation Summary The left ventricular ejection fraction is normal. There is borderline concentric left ventricular hypertrophy. The left ventricle is grossly normal size. Doppler measurements suggest pseudonormalized left ventricular relaxation, which is associated with grade II/IV or mild to moderate diastolic dysfunction Wall motion cannot be accurately commented on, but no definite regional wall motion abnormalities noted. Borderline right ventricular enlargement. The right ventricular systolic function is normal. The right atrium is normal in size The left atrium is mildly dilated. There is a trace to mild amount of mitral regurgitation There is no mitral valve stenosis. There is no aortic valve stenosis No aortic regurgitation is present. No tricuspid regurgitation. There is no tricuspid stenosis. The aortic root is not well visualized but is probably normal size. The inferior vena cava was not well visualized There is no pericardial effusion. MMode/2D Measurements & Calculations RVDd: 4.2 cm LVIDd: 5.0 cm FS: 38.0 % Ao root diam: 3.2 cm IVSd: 1.1 cm LVIDs: 3.1 cm EDV(Teich): 115.5 ml Ao root area: 7.8 cm2 LVPWd: 0.81 cm ESV(Teich): 37.0 ml EF(Teich): 68.0 % Doppler Measurements & Calculations MV E max braeden: MV dec slope: Ao V2 max: LV V1 max P.8 cm/sec 96.4 cm/sec 2.8 mmHg MV A max braeden: 215.1 cm/sec2 Ao max PG: LV V1 max: 68.4 cm/sec MV dec time: 0.25 sec 3.7 mmHg 84.2 cm/sec MV E/A: 0.80 PA V2 max: 86.9 cm/sec PA max P.1 mmHg Left Ventricle The left ventricle is grossly normal size. There is borderline concentric left ventricular hypertrophy. The left ventricular ejection fraction is normal. Doppler measurements suggest pseudonormalized left ventricular relaxation, which is associated with grade II/IV or mild to moderate diastolic dysfunction. Wall motion cannot be accurately commented on, but no definite regional wall motion abnormalities noted. Right Ventricle Borderline right ventricular enlargement. There is normal right ventricular wall thickness. The right ventricular systolic function is normal. Atria The right atrium is normal in size. The left atrium is mildly dilated. Interarterial septum not well visualized and not well dopplered. Cannot comment on ASD/PFO presence. Mitral Valve The mitral valve is grossly normal. There is no mitral valve stenosis. There is a trace to mild amount of mitral regurgitation. Aortic Valve The aortic valve is grossly normal. There is no aortic valve stenosis. No aortic regurgitation is present. Tricuspid Valve The tricuspid valve is not well visualized secondary to technical limitations. There is no tricuspid stenosis. No tricuspid regurgitation. Pulmonic Valve The pulmonic valve is not well visualized. Great Vessels The aortic root is not well visualized but is probably normal size. The inferior vena cava was not well visualized. Effusions There is no pericardial effusion. : FERNANDA KRAFT > Fernanda Kraft
--- NOTE | 2018-01-08 15:50 | PDOC DISCHARGE SUMMARY ---
General - Admit/Disc Date/PCP Admission Date/Primary Care Provider: 01/07/18 13:07 Discharge Date: 01/08/18 - Additional Information Discharge Diet: As Tolerated Discharge Activity: Activity As Tolerated Home Medications: Hydroxyzine Pamoate 100 mg PO QHS 03/02/17 Levothyroxine Sodium 200 mcg PO Q6AM 03/02/17 Meloxicam 15 mg PO DAILYP PRN 03/02/17 Benztropine Mesylate [Cogentin 1 mg Tablet] 2 mg PO Q12HP PRN 01/07/18 Fluoxetine HCl [Prozac] 20 mg PO DAILY 01/07/18 Gabapentin [Neurontin 300 mg Capsule] 300 mg PO Q8 01/07/18 Ranitidine HCl [Zantac 150 mg Tablet] 300 mg PO BID 01/07/18 Ziprasidone HCl [Geodon 40 mg Capsule] 40 mg PO Q12 01/07/18 History of Present Illness History of Present Illness: EZIO SAMANIEGO is a 57 year old male who apparently was panhandling and the police was called and then EMS was called because the patient was in SVT and was hypotensive. He received 6 mg of adenosine 500 cc of fluids. This was resolved when he came to the emergency room. His troponin was slightly elevated and he apparently expressed suicidal ideation and psych eval was done in the emergency room and the patient was cleared. He is currently comfortable and in hospital room denies any symptoms. Hospital Course Hospital Course: Patient was admitted for observation to telemetry He was cleared by psych when evaluated in ER Received supportive treatment and DVT prophylaxis His slight bump in troponin probably related to SVT, dehydration and cocaine abuse His creatinine is at baseline Patient underwent stress test and echocardiogram and was cleared by cardiology Physical Exam Vital Signs: Temp Pulse Resp BP Pulse Ox 97.5 F 63 22 H 146/91 H 100 01/08/18 12:00 01/08/18 14:00 01/08/18 12:00 01/08/18 12:00 01/08/18 12:00 Intake & Output 01/07/18 01/08/18 01/09/18 06:59 06:59 06:59 Intake Total 1880 1000 Output Total 1070 Balance 810 1000 Weight 218 lb 11.177 oz General appearance: PRESENT: no acute distress, well-developed, well-nourished Head exam: PRESENT: atraumatic, normocephalic Eye exam: PRESENT: conjunctiva pink, EOMI, PERRLA. ABSENT: scleral icterus Ear exam: PRESENT: normal external ear exam Mouth exam: PRESENT: moist, tongue midline Neck exam: ABSENT: carotid bruit, JVD, lymphadenopathy, thyromegaly Respiratory exam: PRESENT: clear to auscultation hal. ABSENT: rales, rhonchi, wheezes Cardiovascular exam: PRESENT: RRR. ABSENT: diastolic murmur, rubs, systolic murmur Pulses: PRESENT: normal dorsalis pedis pul Vascular exam: PRESENT: normal capillary refill GI/Abdominal exam: PRESENT: normal bowel sounds, soft. ABSENT: distended, guarding, mass, organolmegaly, rebound, tenderness Rectal exam: PRESENT: deferred Extremities exam: PRESENT: full ROM. ABSENT: calf tenderness, clubbing, pedal edema Neurological exam: PRESENT: alert, awake, oriented to person, oriented to place , oriented to time, oriented to situation, CN II-XII grossly intact. ABSENT: motor sensory deficit Skin exam: PRESENT: dry, intact Results Laboratory Results: 01/08/18 05:43 01/08/18 05:43 01/08/18 01/08/18 05:43 05:43 WBC 6.4 RBC 4.74 Hgb 14.5 Hct 42.8 MCV 90 MCH 30.6 MCHC 33.9 RDW 13.8 Plt Count 148 L Sodium 147.1 H Potassium 4.2 Chloride 112 H Carbon Dioxide 26 Anion Gap 9 BUN 9 Creatinine 0.99 Est GFR ( Amer) > 60 Est GFR (Non-Af Amer) > 60 Glucose 82 Calcium 8.9 Impressions: Head CT 01/06/18 00:00 IMPRESSION: NORMAL BRAIN CT WITHOUT CONTRAST. EVIDENCE OF ACUTE STROKE: NO. Chest X-Ray 01/06/18 17:32 IMPRESSION: NO ACUTE RADIOGRAPHIC FINDING IN THE CHEST. Qualifiers - * PATIENT BEING DISCHARGED WITH ANY OF THE FOLLOWING DIAGNOSIS: No
[2018-01-08 16:29] VITALS: BP 146/91
--- NOTE | 2018-01-08 18:56 | PDOC PROGRESS REPORT ---
Subjective Progress Note for:: 01/08/18 Subjective:: Patient seems to be doing better with gradual improvement. Pt is denying any chest arm or neck discomfort. Patient denying any PND, orthopnea. Patient denied any sustained palpitations, dizziness, syncope, near syncope. Patient denying any fever chills. Patient denying any other significant discomfort. Patient is maintaining sinus rhythm. Review of systems: Rest review of systems negative. Medications: Medications have been reviewed. Reason For Visit: CHEST PAIN SYNCOPE Physical Exam Vital Signs: Temp Pulse Resp BP Pulse Ox 97.7 F 63 22 H 146/91 H 100 01/08/18 16:28 01/08/18 16:28 01/08/18 16:28 01/08/18 16:28 01/08/18 16:28 Intake & Output 01/07/18 01/08/18 01/09/18 06:59 06:59 06:59 Intake Total 1880 1000 Output Total 1070 Balance 810 1000 Weight 99.2 kg Exam: GENERAL: well-nourished and in no acute distress. Alert and oriented x3 HEAD: Atraumatic, normocephalic. EYES: Pupils equal round and reactive to light, extraocular movements intact, sclera anicteric, conjunctiva are normal. ENT: TMs normal, nares patent, oropharynx clear without exudates. Moist mucous membranes. No oral ulcerations or bleeding gums noted NECK: supple without lymphadenopathy. Trachea is central. No cervical or axillary lymphadenopathy noted. Carotids are 2+, JVD WNL LUNGS: Respiration seems nonlabored, no significant accessory muscle action noted. Breath sounds clear to auscultation bilaterally and equal noted. No wheezes rales or rhonchi noted. No significant dullness noted on percussion. CHEST: Palpation of the chest wall shows no significant chest wall tenderness. 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 ABDOMEN: Soft, no significant tenderness appreciated, normoactive bowel sounds. No guarding, no rebound. No rigidity noted . No masses appreciated. EXTREMITIES: Pedal pulses are 1-2+, no calf tenderness noted. No clubbing or cyanosis. negative pedal edema noted NEUROLOGICAL: Focused neurological exam showed no significant neurologic deficit. Normal speech, no focal weakness appreciated. PSYCH: Normal mood, normal affect. Judgment and insight not checked but is felt to be impaired. SKIN: No significant ecchymosis, skin is noted to be warm. MUSCULOSKELETAL EXAM: No significant acute joint swelling noted. Results Laboratory Results: 01/08/18 05:43 01/08/18 05:43 01/08/18 01/08/18 05:43 05:43 WBC 6.4 RBC 4.74 Hgb 14.5 Hct 42.8 MCV 90 MCH 30.6 MCHC 33.9 RDW 13.8 Plt Count 148 L Sodium 147.1 H Potassium 4.2 Chloride 112 H Carbon Dioxide 26 Anion Gap 9 BUN 9 Creatinine 0.99 Est GFR ( Amer) > 60 Est GFR (Non-Af Amer) > 60 Glucose 82 Calcium 8.9 EKG Comments: Shows sinus rhythm, no acute ST-T wave changes are noted. Impressions: Head CT 01/06/18 00:00 IMPRESSION: NORMAL BRAIN CT WITHOUT CONTRAST. EVIDENCE OF ACUTE STROKE: NO. Chest X-Ray 01/06/18 17:32 IMPRESSION: NO ACUTE RADIOGRAPHIC FINDING IN THE CHEST. Assessment & Plan - Diagnosis (1) Elevated troponin Is this a current diagnosis for this admission?: Yes (2) History of schizophrenia Is this a current diagnosis for this admission?: Yes (3) Paroxysmal SVT (supraventricular tachycardia) Is this a current diagnosis for this admission?: Yes (4) Cocaine abuse Is this a current diagnosis for this admission?: Yes (5) Tobacco abuse Is this a current diagnosis for this admission?: Yes (6) Chest pain Qualifiers: Chest pain type: unspecified Qualified Code(s): R07.9 - Chest pain, unspecified Is this a current diagnosis for this admission?: Yes (7) Near syncope Is this a current diagnosis for this admission?: Yes (8) Hypertension Qualifiers: Hypertension type: unspecified Qualified Code(s): I10 - Essential (primary ) hypertension Is this a current diagnosis for this admission?: Yes (9) Hyperlipidemia Qualifiers: Hyperlipidemia type: unspecified Qualified Code(s): E78.5 - Hyperlipidemia , unspecified Is this a current diagnosis for this admission?: Yes - Notes Notes: 2D echocardiogram results reviewed with the patient. It showed normal LVEF. No significant valvular abnormalities were noted. Nuclear stress test results were also reviewed with the patient. Chest pain: Patient claims chest pain is resolved. This was evaluated with a nuclear stress test. Nuclear stress test was negative for any significant areas of ischemia or any significant areas of scar. The nuclear stress test is felt to be relatively low risk. Patient informed that occasionally single- vessel disease and balanced ischemia could be missed. Patient advised aggressive risk factor modification and medical therapy. Patient informed that further evaluation may become necessary if symptoms worsens or there is a development of new symptoms indicative of angina or angina equivalent symptom. Supraventricular tachycardia: No recurrence. May consider discharging patient on Cardizem. Beta blockers may be relatively contraindicated in view of cocaine abuse. Syncope and near syncope: These are most likely related to SVT, drug abuse. Tobacco cocaine abuse: Patient advised to quit smoking and using cocaine. Hypertension: Blood pressure under reasonable control. Hyperlipidemia: Recommend statin therapy. - Time Time with patient: Greater than 35 minutes - Patient was seen multiple times. Total time exceeds 40 minutes. In the morning nuclear stress test procedure, risks benefits, alternatives were discussed. Patient seen during the stress test. Patient also seen after stress test when results were discussed with the patient in detail. Patient's questions were answered. Nuclear stress test results were discussed with the patient. Patient was informed that no definitive evidence of pharmacologic stress-induced ischemia noted. No definite fixed defects were noted. Patient informed that occasionally significant single vessel disease or balanced ischemia could be missed. However based on the current study results, would recommend aggressive risk factor modification and medical therapy. It may also be worthwhile to consider evaluation or empiric management of other causes of chest pain. Should no other cause be found and if persistent in having chest pain, then cardiac catheterization should be considered. Right now, recommendations are for aggressive risk factor modification and medical management. More than 50% of the time spent coordinating care, discussing management plans with involved caregivers. Management plans discussed with involved personnels. Medical decision making was of moderate to high complexity, patient's has multiple comorbidities. Medications reviewed and adjusted accordingly: Yes
== END 2018-01-08 17:23 | disposition home or self-care (01) ==
LOC: ER 17:29 → EH 01-07 13:07 → 4N 01-07 14:15
PROVIDERS: ADMIT Internal Medicine; ATTEND Internal Medicine
DX: I47.1 Supraventricular tachycardia (principal); I95.9 Hypotension, unspecified; E86.0 Dehydration; R45.851 Suicidal ideations; R45.850 Homicidal ideations; F14.10 Cocaine abuse, uncomplicated; E78.5 Hyperlipidemia, unspecified; F25.0 Schizoaffective disorder, bipolar type; R41.0 Disorientation, unspecified; R07.89 Other chest pain; R55 Syncope and collapse; F17.210 Nicotine dependence, cigarettes, uncomplicated; R06.02 Shortness of breath; I10 Essential (primary) hypertension; R79.89 Other specified abnormal findings of blood chemistry; N28.9 Disorder of kidney and ureter, unspecified
CPT/HCPCS: 93005 ×2; 36415 ×3; 82553; 80307 ×4; 82550; 85025; 85027; 80048 ×2; 80053; 84484 ×2; 93306; 93017; 71045; 78452; 70450; 93010 ×2; G0378 ×3; A9500; J2785; J1650; J3490 ×2; J7030 ×3; Q9969

== ENCOUNTER 2018-03-29 18:06 | Emergency (ER) | payer OTHER ==
--- NOTE | 2018-03-29 19:28 | ER Document Report ---
ED Medical Screen (RME) - General Chief Complaint: Altered Mental Status Stated Complaint: POSSIBLE OVERDOSE/REGULAR MEDICATION Time Seen by Provider: 03/29/18 19:21 Notes: Patient is a 58-year-old male with history of depression, anxiety and bipolar disorder that presents to the emergency department for chief complaint of altered mental status. Patient had accidentally taken 3 days worth of his medications at some point today, unknown time, he is on multiple antipsychotic and antidepressive medications including Geodon, fluoxetine, and gabapentin. He is also taking benztropine, and hydroxyzine, and levothyroxine for his hypothyroidism. He admits to having auditory and visual hallucinations. ROS: Other than noted above, the 12 point review of systems was reviewed with the patient and were negative, all pertinent findings are included in the HPI. PHYSICAL EXAMINATION: Vital signs reviewed. GENERAL: Patient appears older than stated age, somnolent, but conversant HEAD: Atraumatic, normocephalic. EYES: Pupils equal round extraocular movements intact, conjunctiva are normal. ENT: Nares patent NECK: Normal range of motion CV: Heart regular rate and rhythm LUNGS: No respiratory distress Musculoskeletal: Normal range of motion NEUROLOGICAL: Speech is somewhat slurred, patient is mildly somnolent PSYCH: Flat affect, having hallucinations MDM: Patient seen and examined for rapid initial assessment. Vital signs reviewed. A comprehensive ED assessment and evaluation of the patient, analysis of test results and completion of the medical decision making process will be conducted by additional ED providers. *Note is created using voice recognition software and may contain spelling, syntax or grammatical errors. TRAVEL OUTSIDE OF THE [place] IN LAST 30 DAYS: No - Related Data Allergies/Adverse Reactions: No Known Allergies Allergy (Verified 03/02/17 12:50) Past Medical History - Past Medical History Cardiac Medical History: Reports: Hx Hypercholesterolemia, Hx Hypertension Renal/ Medical History: Denies: Hx Peritoneal Dialysis Psychiatric Medical History: Reports: Hx Depression, Hx Schizophrenia - Immunizations Hx Diphtheria, Pertussis, Tetanus Vaccination: Yes History of Influenza Vaccine for 02/2017 - 07/2017 Season: Unknown Physical Exam - Vital signs Vitals: Temp Pulse Resp BP Pulse Ox 97.9 F 85 12 152/92 H 96 03/29/18 18:13 03/29/18 18:13 03/29/18 18:13 03/29/18 18:13 03/29/18 18:13 Course - Vital Signs Vital signs: Temp Pulse Resp BP Pulse Ox 97.9 F 85 12 152/92 H 96 03/29/18 18:13 03/29/18 18:13 03/29/18 18:13 03/29/18 18:13 03/29/18 18:13
[2018-03-29 19:59] LABS: ABSOLUTE BASOPHILS # (AUTO) 0.1 10^3/uL (0.0-0.2); ABSOLUTE EOSINOPHILS # (AUTO) 0.1 10^3/uL (0.0-0.6); ABSOLUTE LYMPHOCYTES (AUTO) 1.7 10^3/uL (0.5-4.7); ABSOLUTE MONOCYTES (AUTO) 0.5 10^3/uL (0.1-1.4); ABSOLUTE NEUT (AUTO) 2.8 10^3/uL (1.7-8.2); BASOPHILS % (AUTO) 1.1 % (0-2); EOSINOPHILS % (AUTO) 1.8 % (0-6); HEMOGLOBIN 13.6 g/dL (13.5-17.0); LYMPHOCYTES % (AUTO) 33.1 % (13-45); MEAN CORPUSCULAR HEMOGLOBIN 30.9 pg (27.0-33.4); MEAN CORPUSCULAR HGB CONC 34.1 g/dL (32.0-36.0); MEAN CORPUSCULAR VOLUME 91 fl (80-97); MONOCYTES % (AUTO) 9.4 % (3-13); PLATELET COUNT 170 10^3/uL (150-450); RED BLOOD COUNT 4.41 10^6/uL (4.35-5.55); RED CELL DISTRIBUTION WIDTH 14.7 % (11.5-14.0); SEGMENTED NEUTROPHILS % (AUTO) 54.6 % (42-78); TOTAL CELLS COUNTED % (AUTO) 100 %; WHITE BLOOD COUNT 5.1 10^3/uL (4.0-10.5)
[2018-03-29 20:19] LABS: ACETAMINOPHEN < 10 ug/mL (10-30); ALANINE AMINOTRANSFERASE 13 U/L (21-72); ALBUMIN 4.4 g/dL (3.5-5.0); ALCOHOL < 10 mg/dL (NONE DETECTED); ALKALINE PHOSPHATASE 77 U/L (38-126); ANION GAP 12 (5-19); ASPARTATE AMINO TRANSFERASE 29 U/L (17-59); BILIRUBIN,DIRECT 0.4 mg/dL (0.0-0.4); BILIRUBIN,TOTAL 1.2 mg/dL (0.2-1.3); BLOOD UREA NITROGEN 23 mg/dL (7-20); CARBON DIOXIDE 27 mmol/L (22-30); CHLORIDE 106 mmol/L (98-107); GLUCOSE 94 mg/dL (75-110); POTASSIUM 4.3 mmol/L (3.6-5.0); SALICYLATE < 1.0 mg/dL (2.0-20.0); SODIUM 145.3 mmol/L (137-145); TOTAL PROTEIN 7.5 g/dL (6.3-8.2)
[2018-03-29 20:59] LABS: FREE T3 3.89 pg/mL (2.77-5.27); FREE T4 (FREE THYROXINE) 3.23 ng/dL (0.78-2.19)
--- NOTE | 2018-03-29 21:07 | ER Document Report ---
ED Psych Disorder / Suicide <SUZE JJ - Last Filed: 03/29/18 21:15> - General Mode of Arrival: Ambulatory Information source: Patient TRAVEL OUTSIDE OF THE [place] IN LAST 30 DAYS: No <MARKUS SHI - Last Filed: 03/30/18 01:43> <MILES LANDRY - Last Filed: 03/30/18 09:56> - General Chief Complaint: Altered Mental Status Stated Complaint: POSSIBLE OVERDOSE/REGULAR MEDICATION Time Seen by Provider: 03/29/18 19:21 Notes: 58-year-old male who presents to the emergency department today with complaints of accidentally overmedicating prior to arrival this afternoon. Patient's brother at bedside states that the patient has bipolar and schizoaffective disorder. The patient has to be woken up, mumbles when speaking, and states things that are bizarre and make no sense. Patient states that he took medicine because he was "being chased by people". Brother states that this is somewhat normal behavior but much worse than normal. The patient lives with the oldest brother who is wheelchair-bound, the brother at bedside states that he was called today because the oldest brother "cannot handle him anymore" as the patient was looking up old medical records and calling numbers multiple times today. Brother states that he had to remove knives from the patient's pockets prior to coming here today. Brother states that the patient did not take his medicine yesterday but today took Thursday, Thursday, and Tuesdays medicine today at the same time. The patient has pillboxes set up and also has the medication bottles at bedside which do not reveal any major discrepancies. ( MARKUS SHI) - Related Data Allergies/Adverse Reactions: No Known Allergies Allergy (Verified 03/02/17 12:50) Past Medical History - Social History Smoking Status: Current Every Day Smoker Lives with: Family Family History: None Patient has suicidal ideation: No Patient has homicidal ideation: No - Past Medical History Cardiac Medical History: Reports: Hx Hypercholesterolemia, Hx Hypertension Psychiatric Medical History: Reports: Hx Depression, Hx Schizophrenia Surgical Hx: Negative - Immunizations Hx Diphtheria, Pertussis, Tetanus Vaccination: Yes <MARKUS SHI - Last Filed: 03/30/18 01:43> Review of Systems - Review of Systems -: Yes ROS unobtainable due to patient's medical condition <MARKUS SHI - Last Filed: 03/30/18 01:43> Physical Exam <SUZE JJ - Last Filed: 03/29/18 21:15> <MARKUS SHI - Last Filed: 03/30/18 01:43> <MILES LANDRY - Last Filed: 03/30/18 09:56> - Vital signs Vitals: Temp Pulse Resp BP Pulse Ox 97.9 F 85 12 152/92 H 96 03/29/18 18:13 03/29/18 18:13 03/29/18 18:13 03/29/18 18:13 03/29/18 18:13 - Notes Notes: Physical Exam: General: Alert, appears well. Mumbling speech, non-sensical, states that " people are chasing him" and brother states this is somewhat normal for him but "much worse than normal". HEENT: Normocephalic. Atraumatic. PERRL. Extraocular movements intact. Oropharynx clear. Neck: Supple. Non-tender. Respiratory: No respiratory distress. Clear and equal breath sounds bilaterally. Cardiovascular: Regular rate and rhythm. Abdominal: Normal Inspection. Non-tender. No distension. Normal Bowel Sounds. Back: Non-tender. No deformity or step off. Extremities: Moves all four extremities. Upper extremities: Normal inspection. Normal ROM. Lower extremities: Normal inspection. No edema. Normal ROM. Neurological: Normal cognition. AAOx4. Mumbling speech. Psychological: Normal affect. Normal Mood. Skin: Warm. Dry. Normal color. (MARKUS SHI) Course - Laboratory Result Diagrams: 03/29/18 19:50 03/29/18 19:50 <SUZE JJ - Last Filed: 03/29/18 21:15> - Laboratory Result Diagrams: 03/29/18 19:50 03/29/18 19:50 <MARKUS SHI - Last Filed: 03/30/18 01:43> - Laboratory Result Diagrams: 03/29/18 19:50 03/29/18 19:50 <MILES LANDRY - Last Filed: 03/30/18 09:56> - Vital Signs Vital signs: Temp Pulse Resp BP Pulse Ox 97.6 F 76 18 123/91 H 96 03/30/18 07:28 03/30/18 07:28 03/30/18 07:28 03/30/18 07:28 03/30/18 07:28 - Laboratory Laboratory results interpreted by me: 03/29/18 03/29/18 03/29/18 19:50 19:50 19:50 RDW 14.7 H Sodium 145.3 H BUN 23 H Creatinine 2.25 H Est GFR ( Amer) 36 L Est GFR (Non-Af Amer) 30 L ALT 13 L Free T4 3.23 H Urine Urobilinogen Salicylates < 1.0 L Acetaminophen < 10 L 03/29/18 22:27 RDW Sodium BUN Creatinine Est GFR ( Amer) Est GFR (Non-Af Amer) ALT Free T4 Urine Urobilinogen 2.0 H Salicylates Acetaminophen Discharge <SUZE JJ - Last Filed: 03/29/18 21:15> <MARKUS SHI - Last Filed: 03/30/18 01:43> <MILES LANDRY - Last Filed: 03/30/18 09:56> - Discharge Clinical Impression: Renal insufficiency, Elevated serum free T4 level Condition: Stable Disposition: HOME, SELF-CARE Additional Instructions: Kidney Function Abnormality Your evaluation has shown an abnormality of your kidney function. An abnormal kidney function test can be caused by dehydration, acute kidney damage , blood vessel disease (such as with diabetes or chronic high blood pressure), or just old age. If the abnormality is caused by an acute disease, it may reverse completely. Have a repeat test. If it's normal, don't worry about your kidneys. If you have a chronic kidney problem, you must be careful with medicines and medical tests. Be sure any doctor who prescribes medicine or orders tests knows that your kidney tests have been abnormal. Some medicines must have the dose reduced, other medicines must be avoided. If the doctor has recommended further workup, be sure to follow up as instructed. Call us if you have new flank pain, vomiting, confusion, or if you' re unable to urinate. Your thyroid function tests show a slightly elevated free T4, which is a hormone from your thyroid. If it is too high it can cause problems called hyperthyroidism. Hyperthyroidism The thyroid gland is found in the front of the neck. It produces thyroid hormone. Thyroid hormone regulates the metabolism. Hyperthyroidism means the gland is producing too much thyroid hormone. This "turns up the thermostat" too high, causing weight loss, nervousness, rapid heartbeat, and weakness. Unless it's caused by taking thyroid pills, hyperthyroidism must be investigated. The problem may be in the pituitary gland or the thyroid gland itself. Medication can control the symptoms while long-term treatment is begun. The exact treatment depends on the cause of your hyperthyroidism and on its severity. Contact the doctor or return if you change for the worse -- for example, palpitations, severe nervousness, chest pain, shortness of breath, worsening weakness or lightheadedness. Follow-up with your primary care physician in the next few days or week to have them do further evaluation of your kidney function test and your thyroid function tests. Daniel Attestation: 03/29/18 21:15 I personally performed the services described in the documentation, reviewed and edited the documentation which was dictated to the scribe in my presence, and it accurately records my words and actions. (SUZE JJ) Daniel Documentation - Scribe Written by Daniel:: Daniel Toscano, 03/30/2018 [id number] acting as scribe for :: Zay <MARKUS SHI - Last Filed: 03/30/18 01:43>
--- NOTE | 2018-03-29 22:03 | EKG REPORT ---
SEVERITY:- ABNORMAL ECG - SINUS RHYTHM PROBABLE LEFT ATRIAL ABNORMALITY LAD, CONSIDER LEFT ANTERIOR FASCICULAR BLOCK BORDERLINE R WAVE PROGRESSION, ANTERIOR LEADS BORDERLINE PROLONGED QT INTERVAL : Confirmed by: Gisella Medina MD 29-Mar-2018 22:02:44
[2018-03-29 22:47] LABS: APPEARANCE,URINE CLEAR; BILIRUBIN,URINE NEGATIVE (NEGATIVE); COLOR,URINE YELLOW; GLUCOSE, URINE NEGATIVE (NEGATIVE); KETONES,URINE NEGATIVE (NEGATIVE); LEUKOCYTE ESTERASE,URINE NEGATIVE (NEGATIVE); NITRITE,URINE NEGATIVE (NEGATIVE); PROTEIN,URINE NEGATIVE (NEGATIVE); URINE SPECIFIC GRAVITY 1.011
[2018-03-29 22:56] LABS: URINE AMPHETAMINES SCREEN NEGATIVE; URINE BARBITURATES SCREEN NEGATIVE; URINE BENZODIAZEPINES SCREEN NEGATIVE; URINE COCAINE SCREEN NEGATIVE; URINE MARIJUANA (THC) SCREEN NEGATIVE; URINE METHADONE SCREEN NEGATIVE; URINE PHENCYCLIDINE SCREEN NEGATIVE
--- NOTE | 2018-03-30 09:45 | ER Document Report ---
Doctor's Note Notes: 03/30/18 09:43 Rounds: Chart reviewed and patient interviewed. Patient is being evaluated for bipolar disorder and schizophrenia, questionable suicidal ideation. Patient is very talkative, may be somewhat hyper. Lab studies show renal insufficiency with a creatinine of 2.25. Patient's free T4 is also high at 3.23. Patient says he knows nothing about having any renal disease or thyroid dysfunction. Labs are otherwise unremarkable. Vital signs are all normal. Patient appears to be medically stable for transfer or discharge. He is being advised that he should follow-up with his primary care provider, Dr. Holland, regarding his renal insufficiency and his elevated thyroid studies. I do not think any treatment is needed to be initiated at this time. Eyal Car MD 03/30/18 18:18 Patient still very talkative. Asked me to give him a couple of interviews. When I told him I did not know what he meant, he told me I needed to get the heck out. Going to give him another dose of 5 mg of the Zyprexa Zydis +1 mg of Ativan to see if that may help the patient sleep.
[2018-03-30] MEDS ORDERED: OLANZAPINE 5 MG TAB.RAPDIS PO ONE ×2 (12:01→18:16)
[2018-03-30] MEDS ORDERED: BENZTROPINE MESYLATE 1 MG TABLET PO ONE (12:06)
[2018-03-30] MEDS ORDERED: LORAZEPAM 1 MG TABLET PO ONE (18:17)
--- NOTE | 2018-03-30 20:48 | PSYCHOLOGICAL NOTE ---
Psych Note - Psych Note Date seen by psych provider: 03/30/18 Time seen by psych provider: 08:15 Psych Note: Reason for Consult: AMS Consent permissions: Brother Patient disclosed that he had used some cocaine and was "looking for someone I was not trying to hurt myself it was someone else." He continued to state that he does not want to hurt anybody now and that the cocaine was a couple days ago. Patient reports that he sometimes has thoughts of hurting himself and others and states that 2 weeks ago he thought about putting a rope through the right after to hang himself. Patient is very irritable and reports that he "needs to leave now." He reports he does not remember how he arrived to [facility] and denies understanding why he is currently here. Clinician contacted the local [place]; patient has a critical care nurse last seen on 03/23/2018 it was noted the patient presented with increased paranoia. Patient has diagnosis of schizoaffective disorder; bipolar type, cocaine use disorder and cannabis use disorder. Patient Critical care nurse is Teri Brock; message submitted for her to contact behavioral health team. Patient is alert and orientated to person, place, time. Mood is irritable with congruent affect. While patient denies current suicidal and homicidal ideation he did disclosed last night he was looking for somebody (it was unclear if he was talking about to harm them) and reports suicidal ideation with a plan just 2 weeks prior. Paranoid delusions are noted. Patient is having difficult time with organized and linear conversation; it is unclear at this time if he is still under the influence. Attention and concentration are poor. Conversational speech is mumbled and is slurred at times however clearly communicates his irritability. Eye contact is fair. Intellectual abilities appear to be within the average range. Insight, judgment, impulse control is poor. Clinician was called to bedside because patient was becoming anxious and demanding to leave. Clinician explained to the patient that medications have been ordered. Patient initially refused however ultimately did confirm he would take the medications. Patient discloses some concerning paranoid thoughts in regards to [facility] staff saying they have power over him and he needs to leave. Patient stated that clinician has consent to speak with his brother. Diagnosis 295.70( F25.0) Schizoaffective disorder bipolar type [facility] 292.9 (F14.99) unspecified stimulant related disorder; cocaine [facility] 292.9 (F12.99) unspecified cannabis related disorder [facility] Impression/plan: It is recommended for IVC. It is unclear if the patient is currently under the influence as he is mumbling and slurring some of his words. There is concerned that the patient is demonstrating paranoid delusions demonstrating to [facility] staff (the sitter) saying they have "power over him." Patient's critical care nurse noted an increase in paranoia during his home visit on 03/23/2018. Patient has irritability and some difficulty with organized and linear conversation. Patient will be reevaluated. Dr. Gonzales was consulted and the care management of this patient; attending physicians in agreement with recommendations and disposition.
[2018-03-31] MEDS ORDERED: LORAZEPAM INJ 2 MG/1 ML VIAL IM ONE (02:48)
--- NOTE | 2018-03-31 02:52 | ER Document Report ---
Doctor's Note Notes: 03/31/18 02:49 Nurse asked me to go evaluate the patient because he is being very agitated and wanting to leave and yelling and cursing at the nursing staff and security had to be called to the room. I did review the mental health notes from earlier today. They recommend continued IV C. He has been having some hallucinations apparently. He also made threats of hurting other people as well as potentially himself. One year into the room patient really starts yelling at me. When I told him that he cannot leave he starts to call me multiple appropriate names. Patient obviously is not control of his emotions or agitation. I did review his previous EKG and his QT interval is prolonged therefore I will not use an antipsychotic. I have ordered 3 mg of IM Ativan to help calm him. Dictation of this chart was performed using voice recognition software; therefore, there may be some unintended grammatical errors.
--- NOTE | 2018-03-31 09:50 | ER Document Report ---
Doctor's Note Notes: Laboratory 03/29/18 03/29/18 03/29/18 19:50 19:50 19:50 WBC 5.1 RBC 4.41 Hgb 13.6 Hct 40.0 MCV 91 MCH 30.9 MCHC 34.1 RDW 14.7 H Plt Count 170 Seg Neutrophils % 54.6 Lymphocytes % 33.1 Monocytes % 9.4 Eosinophils % 1.8 Basophils % 1.1 Absolute Neutrophils 2.8 Absolute Lymphocytes 1.7 Absolute Monocytes 0.5 Absolute Eosinophils 0.1 Absolute Basophils 0.1 Sodium 145.3 H Potassium 4.3 Chloride 106 Carbon Dioxide 27 Anion Gap 12 BUN 23 H Creatinine 2.25 H Est GFR ( Amer) 36 L Est GFR (Non-Af Amer) 30 L Glucose 94 Calcium 10.0 Magnesium Total Bilirubin 1.2 Direct Bilirubin 0.4 Neonat Total Bilirubin Not Reportable Neonat Direct Bilirubin Not Reportable Neonat Indirect Bili Not Reportable AST 29 ALT 13 L Alkaline Phosphatase 77 Total Protein 7.5 Albumin 4.4 Free T4 3.23 H Free T3 pg/mL 3.89 Urine Color Urine Appearance Urine pH Ur Specific Wilder Urine Protein Urine Glucose (UA) Urine Ketones Urine Blood Urine Nitrite Urine Bilirubin Urine Urobilinogen Ur Leukocyte Esterase Urine WBC (Auto) Urine RBC (Auto) U Hyaline Cast (Auto) Urine Mucus (Auto) Urine Ascorbic Acid Salicylates < 1.0 L Urine Opiates Screen Urine Methadone Screen Acetaminophen < 10 L Ur Barbiturates Screen Ur Phencyclidine Scrn Ur Amphetamines Screen U Benzodiazepines Scrn Urine Cocaine Screen U Marijuana (THC) Screen Serum Alcohol < 10 03/29/18 03/29/18 03/29/18 19:50 22:27 22:27 WBC RBC Hgb Hct MCV MCH MCHC RDW Plt Count Seg Neutrophils % Lymphocytes % Monocytes % Eosinophils % Basophils % Absolute Neutrophils Absolute Lymphocytes Absolute Monocytes Absolute Eosinophils Absolute Basophils Sodium Potassium Chloride Carbon Dioxide Anion Gap BUN Creatinine Est GFR ( Amer) Est GFR (Non-Af Amer) Glucose Calcium Magnesium 2.1 Total Bilirubin Direct Bilirubin Neonat Total Bilirubin Neonat Direct Bilirubin Neonat Indirect Bili AST ALT Alkaline Phosphatase Total Protein Albumin Free T4 Free T3 pg/mL Urine Color YELLOW Urine Appearance CLEAR Urine pH 5.0 Ur Specific Wilder 1.011 Urine Protein NEGATIVE Urine Glucose (UA) NEGATIVE Urine Ketones NEGATIVE Urine Blood NEGATIVE Urine Nitrite NEGATIVE Urine Bilirubin NEGATIVE Urine Urobilinogen 2.0 H Ur Leukocyte Esterase NEGATIVE Urine WBC (Auto) 2 Urine RBC (Auto) 0 U Hyaline Cast (Auto) 3 Urine Mucus (Auto) RARE Urine Ascorbic Acid NEGATIVE Salicylates Urine Opiates Screen NEGATIVE Urine Methadone Screen NEGATIVE Acetaminophen Ur Barbiturates Screen NEGATIVE Ur Phencyclidine Scrn NEGATIVE Ur Amphetamines Screen NEGATIVE U Benzodiazepines Scrn NEGATIVE Urine Cocaine Screen NEGATIVE U Marijuana (THC) Screen NEGATIVE Serum Alcohol 03/31/18 09:49 As the rounding physician this AM, I assessed the patient's labs, vitals, and records. No concerning findings this morning. Patient denies any acute complaints. Patient is cleared for disposition by psychiatry. Patient became agitated overnight requiring IM Ativan and restraints. This morning he is cooperative. Psych plan is for placement. Medication recommendations include Zyprexa 5 mg twice daily, Prozac 20 mg daily, gabapentin 300 mg in the morning and 600 mg at night, Cogentin 1 mg twice daily, Thorazine 25 mg twice daily as well as as needed Thorazine 50 mg every 6 as needed PHYSICAL EXAMINATION: GENERAL: Well-appearing, well-nourished and in no acute distress. HEAD: Atraumatic, normocephalic. EYES: Pupils equal round extraocular movements intact, conjunctiva are normal. ENT: Nares patent NECK: Normal range of motion LUNGS: No respiratory distress Musculoskeletal: Normal range of motion NEUROLOGICAL: Normal speech, normal gait. PSYCH: Normal mood, normal affect. SKIN: Warm, Dry, normal turgor, no rashes or lesions noted. 03/31/18 09:58
[2018-03-31] MEDS ORDERED: CHLORPROMAZINE HCL 50 MG TABLET PO PRN (09:57)
[2018-03-31] MEDS: CHLORPROMAZINE HCL 25 MG TABLET PO SCH ×2 (10:32→18:48)
[2018-03-31] MEDS: OLANZAPINE 5 MG TABLET PO SCH ×2 (10:32→18:48)
[2018-03-31] MEDS: FLUOXETINE HCL 20 MG CAPSULE PO SCH (10:32)
[2018-03-31] MEDS: BENZTROPINE MESYLATE INJ 2 MG/2 ML AMPULE IM SCH ×2 (10:32→18:48)
[2018-03-31] MEDS: GABAPENTIN 300 MG CAPSULE PO SCH (10:35)
--- NOTE | 2018-03-31 14:51 | PSYCHOLOGICAL NOTE ---
Psych Note - Psych Note Date seen by psych provider: 03/31/18 Time seen by psych provider: 08:05 Psych Note: Reason for Consult: AMS Consent permissions: Brother- patient is unable to articulate which brother and it appears the patient has 2 Conducted check in with patient Patient demonstrates disorganized thought process with flight of ideas and unable to finish sentences or thoughts. He discloses he was upset this morning because he was being pushed around when asked for clarification he states that he was put in a bed in front and then brought back. He then began to state that he went to a bar and then stated he is getting old enough to drink now. Patient then stated something about [employer] and reported this was the first time he had made cornbread at which point the patient is observed messing with his breakfast tray. Patient requested the clinician to tell his brother to get out of his bed and pointed to the stretcher. When clinician explained that the stretcher was empty, when clinician explained the structure was currently empty the patient started laughing and stated "of course it is." Medication recommendations per [facility]'s contracted psychiatrist Dr. Saige OROSCO are as follows Zyprexa 5 mg twice daily Prozac 20 mg daily gabapentin 300 mg every morning and 600 mg nightly Cogentin 1 mg twice daily Thorazine 25 mg twice daily Thorazine 50 mg every 6 hours as needed Diagnosis 295.70( F25.0) Schizoaffective disorder bipolar [facility] (F14.99) unspecified stimulant related disorder; cocaine [facility] 292.[facility] (F12.99) unspecified cannabis related disorder [facility] Impression/plan: It is recommended for continued IVC. Last night patient was observed to determine if the patient was having a substance induced psychosis however today the patient is presenting even more disorganized. He is having difficulty completing his sentences and is demonstrating flight of thought. Patient is actively hallucinating and is observed to both be responding to both auditory and visual hallucinations. Medication recommendations have been provided. Patient will be reevaluated. Dr. Gonzales was consulted and the care management of this patient; attending physicians in agreement with recommendations and disposition.
[2018-03-31] MEDS ORDERED: GABAPENTIN 100 MG CAPSULE PO SCH (22:00)
--- NOTE | 2018-04-01 09:09 | ER Document Report ---
Doctor's Note Notes: 04/01/18 09:08 As the rounding physician this AM, I assessed the patient's labs, vitals, and records. No concerning findings this morning. Patient denies any acute complaints. Psychiatry trying to place the patient at [facility]. PHYSICAL EXAMINATION: GENERAL: Well-appearing, well-nourished and in no acute distress. HEAD: Atraumatic, normocephalic. LUNGS: No respiratory distress Musculoskeletal: Normal range of motion NEUROLOGICAL: Normal speech, normal gait. PSYCH: Normal mood, normal affect. SKIN: Warm, Dry, normal turgor, no rashes or lesions noted. Psychiatry note Medication recommendations per [facility]'s contracted psychiatrist Dr. Saige OROSCO are as follows Zyprexa 5 mg twice daily Prozac 20 mg daily gabapentin 300 mg every morning and 600 mg nightly Cogentin 1 mg twice daily Thorazine 25 mg twice daily Thorazine 50 mg every 6 hours as needed Diagnosis 295.70( F25.0) Schizoaffective disorder bipolar type [facility] 292.[facility] (F14.99) unspecified stimulant related disorder; cocaine [facility] 292.9 (F12.99) unspecified cannabis related disorder [facility] Impression/plan: It is recommended for continued IVC. Last night patient was observed to determine if the patient was having a substance induced psychosis however today the patient is presenting even more disorganized. He is having difficulty completing his sentences and is demonstrating flight of thought. Patient is actively hallucinating and is observed to both be responding to both auditory and visual hallucinations. Medication recommendations have been provided. Patient will be reevaluated. Dr. Gonzales was consulted and the care management of this patient; attending physicians in agreement with recommendations and disposition. Patient will be discharged home to family. 04/01/18 09:34 04/01/18 10:33
[2018-04-01] MEDS: FLUOXETINE HCL 20 MG CAPSULE PO SCH (09:20)
[2018-04-01] MEDS: GABAPENTIN 300 MG CAPSULE PO SCH (09:20)
[2018-04-01] MEDS: CHLORPROMAZINE HCL 25 MG TABLET PO SCH (09:20)
[2018-04-01] MEDS: OLANZAPINE 5 MG TABLET PO SCH (09:20)
[2018-04-01] MEDS: BENZTROPINE MESYLATE INJ 2 MG/2 ML AMPULE IM SCH (09:27)
--- NOTE | 2018-04-01 10:28 | PSYCHOLOGICAL NOTE ---
Psych Note - Psych Note Date seen by psych provider: 04/01/18 Time seen by psych provider: 09:00 Psych Note: Reason for Consult: AMS Consent permissions: Brother, Shahbaz Conducted check in with patient Patient discloses that he is hoping that he can go home today. He reports that he has been receiving medication and feels "fine."He gave consent to speak with his brother Fred when asked what his phone number was he reports that it is in his wallet. Clinician explained that there is a brother, Shahbaz, listed in the computer system at which point the patient stated that that is Fred is full name is Shahbaz Levine however he prefers to go by Fred instead of Shahbaz. He reports that he stays with his older brother. He confirms he has a critical care nurse from the [place] that was supposed to come to his home and see him on the and knows that since he was not there he will have to contact her to reschedule. Clinician contacted Shahbaz. He reports that the patient lives with their older brother however that brother reports he is not interested in the patient returning home. He disclosed that the reason they called EMS was not a concern that he may harm himself but that the patient may harm the brother while he was under the influence of his medications. He states that the patient has significant substance abuse history which is why the older brother is kicking him out of the home; the patient was going [facility] the [facility]. He states that the patient can call their older sister (Maritza Maxwell [phone]) to see if she will assist. Medication recommendations per [facility]'s contracted psychiatrist Dr. Saige OROSCO are as follows Zyprexa 5 mg twice daily Prozac 20 mg daily gabapentin 300 mg every morning and 600 mg nightly Cogentin 1 mg twice daily Thorazine 25 mg twice daily Thorazine 50 mg every 6 hours as needed Diagnosis 295.70( F25.0) Schizoaffective disorder bipolar type [facility] (F14.99) unspecified stimulant related disorder; cocaine [facility] 292.9 (F12.99) unspecified cannabis related disorder [facility] Impression/plan: It is recommended for rescind of IVC and is cleared from acute psychiatric services. Patient is no longer demonstrating responding to internal stimuli i.e. makes good eye contact and can carry on organized linear conversation. Patient has a significant substance abuse history and family brought him in now for the concerned that he would harm himself that he would actually harm his brother because of his altered mental status. His brother reports that the patient is not welcome back in the home of the older brother and that the patient should call his older sister if he wants to see if she will assist. Patient has a higher level of care with [facility]. He is recommended to continue with that [facility] for his [facility] abuse and mental health. Dr. Gonzales was consulted and the care management of this patient; attending physicians in agreement with recommendations and disposition.
[2018-04-01 11:10] VITALS: BP 132/86
== END 2018-04-01 11:10 | disposition home or self-care (01) ==
LOC: ER 18:06
DX: F25.0 Schizoaffective disorder, bipolar type (principal); F14.99 Cocaine use, unspecified with unspecified cocaine-induced disorder; F12.99 Cannabis use, unspecified with unspecified cannabis-induced disorder; R41.82 Altered mental status, unspecified; E78.00 Pure hypercholesterolemia, unspecified; I10 Essential (primary) hypertension; F32.9 Major depressive disorder, single episode, unspecified
CPT/HCPCS: 93005; 99285; 96372; 36415; 84439; 80307 ×4; 83735; 85025; 80053; 81001; 84481; 93010; J0515 ×2; J3490 ×3; J2060

== ENCOUNTER 2018-04-11 14:19 | Emergency (ER) | payer OTHER ==
--- NOTE | 2018-04-11 14:31 | ER Document Report ---
ED General - General Mode of Arrival: Medic Information source: Patient TRAVEL OUTSIDE OF THE [place] IN LAST 30 DAYS: No <MARKUS SHI - Last Filed: 04/11/18 15:02> <REGAN SAAVEDRA - Last Filed: 04/12/18 00:29> - General Stated Complaint: ALTERED MENTAL STATUS Time Seen by Provider: 04/11/18 14:29 Notes: 58-year-old male with schizophrenia and depression who presents to the emergency department today with complaints of altered mental status according to family. Family is not here to explain what is different than the patient's baseline today. Patient is somnolent upon entry into room. Patient is unable to provide any history. The patient presented in a similar fashion to this two weeks ago. History is limited. Patient is on multiple psych meds. (MARKUS SHI) - Related Data Allergies/Adverse Reactions: No Known Allergies Allergy (Verified 04/11/18 14:39) Past Medical History - General Information source: Patient - Social History Smoking Status: Current Every Day Smoker Cigarette use (# per day): Yes Frequency of alcohol use: None Drug Abuse: None Lives with: Family Family History: Reviewed & Not Pertinent - Past Medical History Cardiac Medical History: Reports: Hx Hypercholesterolemia, Hx Hypertension Psychiatric Medical History: Reports: Hx Depression, Hx Schizophrenia - Immunizations Hx Diphtheria, Pertussis, Tetanus Vaccination: Yes <MARKUS SHI - Last Filed: 04/11/18 15:02> Review of Systems - Review of Systems -: Yes ROS unobtainable due to patient's medical condition <MARKUS SHI - Last Filed: 04/11/18 15:02> Physical Exam <MARKUS SHI - Last Filed: 04/11/18 15:02> <REGAN SAAVEDRA - Last Filed: 04/12/18 00:29> - Vital signs Vitals: Temp Pulse Resp BP Pulse Ox 98.4 F 72 16 144/85 H 99 04/11/18 14:20 04/11/18 14:20 04/11/18 14:20 04/11/18 14:20 04/11/18 14:20 - Notes Notes: Physical Exam: General: Alert, appears chronically ill. HEENT: Normocephalic. Atraumatic. PERRL. Extraocular movements intact. Oropharynx clear. Dry mucous membranes. Neck: Supple. Non-tender. Respiratory: No respiratory distress. Clear and equal breath sounds bilaterally. Cardiovascular: Regular rate and rhythm. Abdominal: Normal Inspection. Non-tender. No distension. Normal Bowel Sounds. Back: Non-tender. No deformity or step off. Extremities: Moves all four extremities. Upper extremities: Normal inspection. Normal ROM. Lower extremities: Normal inspection. No edema. Normal ROM. Neurological: Confused. Moves all four extremities. Psychological: Confused Skin: Warm. Dry. Normal color. (MARKUS SHI) Course - Laboratory Result Diagrams: 04/11/18 14:25 04/11/18 14:25 <MARKUS SHI - Last Filed: 04/11/18 15:02> - Laboratory Result Diagrams: 04/11/18 14:25 04/11/18 14:25 - Diagnostic Test Radiology reviewed: Reports reviewed <REGAN SAAVEDRA - Last Filed: 04/12/18 00:29> - Re-evaluation Re-evalutation: 04/12/18 00:28 Patient with history of schizophrenia who comes in appearing to respond to internal stimuli. He knows the year but not the month or president or where he is. Concerned the patient is having relapse of psychosis due to not taking his medications. Have attempted to call family for collateral information but no one has been available. Will restart medications. Patient with some renal insufficiency that is likely acute. He has been fluid resuscitated and is finally making urine. He has been agitated more recently. Will be held for mental health evaluation otherwise medically stable. (REGAN SAAVEDRA) - Vital Signs Vital signs: Temp Pulse Resp BP Pulse Ox 97.3 F 75 20 189/88 H 100 04/11/18 21:38 04/11/18 21:38 04/11/18 21:38 04/11/18 21:38 04/11/18 21:38 - Laboratory Laboratory results interpreted by me: 04/11/18 04/11/18 04/11/18 14:25 14:25 14:25 RDW 14.4 H Sodium 146.2 H Chloride 109 H BUN 23 H Creatinine 1.75 H Est GFR ( Amer) 49 L Est GFR (Non-Af Amer) 40 L Direct Bilirubin 0.6 H ALT 10 L TSH < 0.01 L Urine Glucose (UA) Urine Urobilinogen Salicylates < 1.0 L Acetaminophen < 10 L 04/11/18 23:42 RDW Sodium Chloride BUN Creatinine Est GFR ( Amer) Est GFR (Non-Af Amer) Direct Bilirubin ALT TSH Urine Glucose (UA) 50 H Urine Urobilinogen 2.0 H Salicylates Acetaminophen Discharge <MARKUS SHI - Last Filed: 04/11/18 15:02> <REGAN SAAVEDRA - Last Filed: 04/12/18 00:29> - Discharge Clinical Impression: Schizoaffective disorder, bipolar type Condition: Stable Disposition: OTHER Scribe Attestation: 04/12/18 00:29 I personally performed the services described in the documentation, reviewed and edited the documentation which was dictated to the scribe in my presence, and it accurately records my words and actions. (REGAN SAAVEDRA) Scribe Documentation - Scribe Written by Scribe:: Daniel Toscano, 04/11/2018 1446 acting as scribe for :: Huy <MARKUS SHI - Last Filed: 04/11/18 15:02>
[2018-04-11] MEDS ORDERED: NALOXONE HCL INJ 2 MG/2 ML DISP.SYRIN ONE (14:34)
[2018-04-11 14:48] LABS: ABSOLUTE EOSINOPHILS # (AUTO) 0.1 10^3/uL (0.0-0.6); ABSOLUTE LYMPHOCYTES (AUTO) 1.3 10^3/uL (0.5-4.7); ABSOLUTE MONOCYTES (AUTO) 0.3 10^3/uL (0.1-1.4); BASOPHILS % (AUTO) 0.5 % (0-2); HEMATOCRIT 40.8 % (37.9-51.0); HEMOGLOBIN 13.8 g/dL (13.5-17.0); LYMPHOCYTES % (AUTO) 23.1 % (13-45); MEAN CORPUSCULAR HGB CONC 33.8 g/dL (32.0-36.0); MEAN CORPUSCULAR VOLUME 92 fl (80-97); MONOCYTES % (AUTO) 5.2 % (3-13); PLATELET COUNT 203 10^3/uL (150-450); RED BLOOD COUNT 4.44 10^6/uL (4.35-5.55); RED CELL DISTRIBUTION WIDTH 14.4 % (11.5-14.0); SEGMENTED NEUTROPHILS % (AUTO) 70.2 % (42-78); TOTAL CELLS COUNTED % (AUTO) 100 %; WHITE BLOOD COUNT 5.7 10^3/uL (4.0-10.5)
[2018-04-11 15:14] LABS: ALANINE AMINOTRANSFERASE 10 U/L (21-72); ALBUMIN 3.9 g/dL (3.5-5.0); ALKALINE PHOSPHATASE 70 U/L (38-126); ANION GAP 11 (5-19); ASPARTATE AMINO TRANSFERASE 19 U/L (17-59); BILIRUBIN,DIRECT 0.6 mg/dL (0.0-0.4); BILIRUBIN,TOTAL 0.6 mg/dL (0.2-1.3); BLOOD UREA NITROGEN 23 mg/dL (7-20); CALCIUM 9.3 mg/dL (8.4-10.2); CARBON DIOXIDE 26 mmol/L (22-30); CHLORIDE 109 mmol/L (98-107); GLUCOSE 99 mg/dL (75-110); POTASSIUM 4.4 mmol/L (3.6-5.0); SODIUM 146.2 mmol/L (137-145); TOTAL PROTEIN 6.8 g/dL (6.3-8.2)
[2018-04-11 15:15] LABS: ACETAMINOPHEN < 10 ug/mL (10-30); ALCOHOL < 10 mg/dL (NONE DETECTED); SALICYLATE < 1.0 mg/dL (2.0-20.0)
[2018-04-11] MEDS ORDERED: 1/2 NORMAL SALINE 1,000 ML IV ONE ×2 (17:11→19:34)
--- NOTE | 2018-04-11 17:27 | EKG REPORT ---
SEVERITY:- ABNORMAL ECG - SINUS RHYTHM LEFT ANTERIOR FASCICULAR BLOCK CONSIDER ANTERIOR INFARCT BORDERLINE PROLONGED QT INTERVAL : Confirmed by: Jesse Frazier MD 11-Apr-2018 17:22:24
--- NOTE | 2018-04-11 18:06 | RADIOLOGY REPORT (SQ) ---
EXAM DESCRIPTION: CHEST 2 VIEWS COMPLETED DATE/TIME: 04/11/2018 5:56 pm REASON FOR STUDY: AMS COMPARISON: 01/06/2018 EXAM PARAMETERS: NUMBER OF VIEWS: two views TECHNIQUE: Digital Frontal and Lateral radiographic views of the chest acquired. RADIATION DOSE: NA LIMITATIONS: none FINDINGS: LUNGS AND PLEURA: No opacities, masses or pneumothorax. No pleural effusion. MEDIASTINUM AND HILAR STRUCTURES: No masses or contour abnormalities. HEART AND VASCULAR STRUCTURES: Heart normal size. No evidence for failure. BONES: No acute findings. HARDWARE: None in the chest. OTHER: No other significant finding. IMPRESSION: NO ACUTE RADIOGRAPHIC FINDING IN THE CHEST. TECHNICAL DOCUMENTATION: JOB ID: [id number] [employer]- All Rights Reserved Reading location - IP/workstation name: [email or web address]
--- NOTE | 2018-04-11 18:28 | RADIOLOGY REPORT (SQ) ---
EXAM DESCRIPTION: CT HEAD WITHOUT COMPLETED DATE/TIME: 04/11/2018 6:12 pm REASON FOR STUDY: AMS COMPARISON: 01/06/2018 TECHNIQUE: Axial images acquired through the brain without intravenous contrast. Images reviewed wi th bone, brain and subdural windows. Additional sagittal and coronal reconstructions were generated. Images stored on PACS. All CT scanners at this facility use dose modulation, iterative reconstruction, and/or weight based d osing when appropriate to reduce radiation dose to as low as reasonably achievable (ALARA). [facility]: Dose Right [facility]: CareDose [facility]: Dose Right [facility]: Teradose 4D [facility]: [employer] RADIATION DOSE: CT Rad equipment meets quality standard of care and radiation dose reduction techniq ues were employed. CTDIvol: 53.2 mGy. DLP: 1124 mGy-cm. mGy. LIMITATIONS: None. FINDINGS: VENTRICLES: Normal size and contour. CEREBRUM: No masses. No hemorrhage. No midline shift. No evidence for acute infarction. Normal gra y/white matter differentiation. No areas of low density in the white matter. CEREBELLUM: No masses. No hemorrhage. No alteration of density. No evidence for acute infarction. EXTRAAXIAL SPACES: No fluid collections. No masses. ORBITS AND GLOBE: No intra- or extraconal masses. Normal contour of globe without masses. CALVARIUM: No fracture. PARANASAL SINUSES: No fluid or mucosal thickening. SOFT TISSUES: No mass or hematoma. OTHER: No other significant finding. IMPRESSION: NORMAL BRAIN CT WITHOUT CONTRAST. EVIDENCE OF ACUTE STROKE: NO. COMMENT: Quality ID # [id number]: Final reports with documentation of one or more dose reduction techniques (e.g., Automated exposure control, adjustment of the mA and/or kV according to patient size, use of iterative reconstruction technique) TECHNICAL DOCUMENTATION: JOB ID: [id number] [employer]- All Rights Reserved Reading location - IP/workstation name: [email or web address]
[2018-04-11] MEDS ORDERED: BENZTROPINE MESYLATE 1 MG TABLET PO SCH (23:15)
[2018-04-11] MEDS ORDERED: GABAPENTIN 300 MG CAPSULE PO SCH (23:15)
[2018-04-11] MEDS ORDERED: OLANZAPINE 5 MG TABLET PO SCH (23:15)
[2018-04-11] MEDS ORDERED: CHLORPROMAZINE HCL 25 MG TABLET PO SCH (23:15)
[2018-04-11] MEDS ORDERED: LORAZEPAM INJ 2 MG/1 ML VIAL IV ONE (23:26)
[2018-04-11] MEDS ORDERED: LORAZEPAM INJ 2 MG/1 ML VIAL ONE (23:28)
[2018-04-11] MEDS ORDERED: CHLORPROMAZINE HCL 25 MG TABLET PO ONE (23:30)
[2018-04-11] MEDS ORDERED: BENZTROPINE MESYLATE 1 MG TABLET PO ONE (23:30)
[2018-04-11] MEDS ORDERED: GABAPENTIN 300 MG CAPSULE PO ONE (23:30)
[2018-04-11] MEDS ORDERED: OLANZAPINE 5 MG TABLET PO ONE (23:30)
[2018-04-12 00:03] LABS: APPEARANCE,URINE SLIGHTLY-CLOUDY; BILIRUBIN,URINE NEGATIVE (NEGATIVE); COLOR,URINE YELLOW; GLUCOSE, URINE 50 mg/dL (NEGATIVE); KETONES,URINE NEGATIVE (NEGATIVE); LEUKOCYTE ESTERASE,URINE NEGATIVE (NEGATIVE); NITRITE,URINE NEGATIVE (NEGATIVE); PROTEIN,URINE NEGATIVE (NEGATIVE); URINE SPECIFIC GRAVITY 1.013
[2018-04-12] MEDS ORDERED: LORAZEPAM INJ 2 MG/1 ML VIAL IV ONE (01:29)
[2018-04-12 01:58] LABS: ANION GAP 10 (5-19); BLOOD UREA NITROGEN 22 mg/dL (7-20); CALCIUM 8.6 mg/dL (8.4-10.2); CARBON DIOXIDE 25 mmol/L (22-30); CHLORIDE 109 mmol/L (98-107); GLUCOSE 89 mg/dL (75-110); SODIUM 143.9 mmol/L (137-145)
[2018-04-12 04:14] LABS: URINE AMPHETAMINES SCREEN NEGATIVE; URINE BARBITURATES SCREEN NEGATIVE; URINE BENZODIAZEPINES SCREEN NEGATIVE; URINE MARIJUANA (THC) SCREEN NEGATIVE; URINE METHADONE SCREEN NEGATIVE; URINE PHENCYCLIDINE SCREEN NEGATIVE
[2018-04-12 04:38] LABS: URINE COCAINE SCREEN NEGATIVE
[2018-04-12] MEDS ORDERED: GABAPENTIN 300 MG CAPSULE PO SCH ×2 (08:00→22:00)
--- NOTE | 2018-04-12 09:55 | ER Document Report ---
Doctor's Note Notes: Patient seen and evaluated by myself. Vital signs are stable. Patient has no complaints. Patient was brought to the emergency department for altered mental status per family. Labs and imaging were done and normal. Behavioral health was consulted as the patient has a history of schizophrenia. Waiting for behavioral health direction. 04/12/18 09:53
[2018-04-12] MEDS ORDERED: OLANZAPINE 5 MG TABLET PO SCH (10:00)
[2018-04-12] MEDS ORDERED: FLUOXETINE HCL 20 MG CAPSULE PO SCH (10:00)
[2018-04-12] MEDS ORDERED: CHLORPROMAZINE HCL 25 MG TABLET PO SCH (10:00)
[2018-04-12] MEDS ORDERED: BENZTROPINE MESYLATE 1 MG TABLET PO SCH (10:00)
--- NOTE | 2018-04-12 10:18 | PSYCHOLOGICAL NOTE ---
Psych Note - Psych Note Date seen by psych provider: 04/12/18 Time seen by psych provider: 08:30 Psych Note: Reason for Consult: psychosis Patient presents to ED by EMS transport after they were called by family who went to visit patient. Family called EMS for AMS. Patient was also sent here in March for same complaint and was d/julius with diagnosis of "psychosis" and has meds prescribed and filled in Feb 2018 by other provider for diagnosis of "psychosis". Patient responsive to nurse but not oriented. Patient not making eye contact and moving arms in organized movements as if things are there that are not present. Patient unable to answer assessment questions by this nurse. Clinician attempted to conduct evaluation. Patient is clearly confused and is mumbling. He reports he does remember clinician and states he is unsure why he is currently here at [facility]. Patient has been noted to be looking around and under his bedside table. When asked what he is looking for he is unclear. Patient asked clinician what time it is and when it was provided he stated that he was marking it down and then pushed his finger onto the bedside table and stated "there." He states that he is taking his medications however continues to look around the room. Patient is alert and orientated to person, place, time. Mood is euythmic with congruent affect. While patient denies current suicidal and homicidal ideation. Patient is having difficult time with organized and linear conversation. Tangential thought processes are noted. Patient is demonstrating behaviors indicating he is responding to internal stimuli. Attention and concentration are poor. Conversational speech is mumbled and is slurred at times. Eye contact is poor. Intellectual abilities appear to be within the average range. Insight, judgment, impulse control is poor. Medication recommendations per [facility]'s contracted psychiatrist Dr. Saige OROSCO are as follows Zyprexa 5 mg twice daily Prozac 20 mg daily gabapentin 300 mg every morning and 600 mg nightly Cogentin 1 mg twice daily Thorazine 25 mg twice daily Thorazine 50 mg every 6 hours as needed Diagnosis 295.70( F25.0) Schizoaffective disorder bipolar [facility] (F14.99) unspecified stimulant related disorder; cocaine [facility] 292.[facility] (F12.99) unspecified cannabis related disorder [facility] Impression/plan: It is recommended for IVC. Patient had a critical care nurse that he reportedly fired after his release from [facility] on 04/01/2018. Patient has not been taking his medications and his family has not allowed him to return home because of fear of his behaviours. He does not have any drugs indicated in his toxicology screening and currently is presenting has he did upon his arrival for previous visit (ie confusion and responding to internal stimuli). Patient has tangential thought processes and is difficult to understand. Medication recommendations have been provided. [facility]; transportation has been requested. Dr. Gonzales was consulted and the care management of this patient; attending physicians in agreement with recommendations and disposition.
[2018-04-12] MEDS ORDERED: CHLORPROMAZINE HCL 50 MG TABLET PO PRN (10:55)
[2018-04-12] MEDS ORDERED: LORAZEPAM INJ 2 MG/1 ML VIAL IM ONE ×2 (13:03)
[2018-04-13 08:39] VITALS: BP 155/90
--- NOTE | 2018-04-13 10:24 | ER Document Report ---
Doctor's Note Notes: 04/13/18 10:23 Patient EMTALA form filled out yesterday. He was reevaluated deemed appropriate for transport to an [facility]. concern for PTSD schizophrenia. He was stable at the time of discharge to custody and transport for his ongoing stabilization.
== END 2018-04-13 08:30 ==
LOC: ER 14:19
DX: F25.0 Schizoaffective disorder, bipolar type (principal); F14.99 Cocaine use, unspecified with unspecified cocaine-induced disorder; F12.99 Cannabis use, unspecified with unspecified cannabis-induced disorder; R41.82 Altered mental status, unspecified; F17.210 Nicotine dependence, cigarettes, uncomplicated; E78.00 Pure hypercholesterolemia, unspecified; I10 Essential (primary) hypertension
CPT/HCPCS: 93005; 96376; 99285; 96372; 96361; 96374; 36415; 80307 ×4; 82140; 84443; 85025; 80048; 80053; 81001; 71046; 70450; 93010; J3490 ×3; J2060 ×2

== ENCOUNTER 2018-05-31 12:19 | Emergency (ER) | payer OTHER ==
--- NOTE | 2018-05-31 13:07 | ER Document Report ---
ED Medical Screen (RME) - General Chief Complaint: Suicidal Ideation Stated Complaint: ALTERED MENTAL STATE Time Seen by Provider: 05/31/18 12:57 Mode of Arrival: Ambulatory Information source: Patient Notes: This is a 58-year-old man who is accompanied by his grandson to the emergency room. He does have a history of psychiatric issues and is currently residing at a skilled nursing. He is brought in for behavioral changes, suicidal thoughts and increased aggression over the last couple of weeks. Patient himself says that "I am doing weird things" and also reports that his memory has declined. TRAVEL OUTSIDE OF THE [place] IN LAST 30 DAYS: No - Related Data Allergies/Adverse Reactions: No Known Allergies Allergy (Verified 05/31/18 12:19) Past Medical History - Past Medical History Cardiac Medical History: Reports: Hx Hypercholesterolemia, Hx Hypertension Renal/ Medical History: Denies: Hx Peritoneal Dialysis Psychiatric Medical History: Reports: Hx Depression, Hx Schizophrenia - Immunizations Hx Diphtheria, Pertussis, Tetanus Vaccination: Yes History of Influenza Vaccine for 02/2017 - 07/2017 Season: Unknown Physical Exam - Vital signs Vitals: Temp Pulse Resp BP Pulse Ox 97.7 F 74 16 168/87 H 97 05/31/18 12:30 05/31/18 12:30 05/31/18 12:30 05/31/18 12:30 05/31/18 12:30 Course - Vital Signs Vital signs: Temp Pulse Resp BP Pulse Ox 97.7 F 88 16 156/76 H 83 L 05/31/18 12:31 05/31/18 12:31 05/31/18 12:31 05/31/18 12:31 05/31/18 12:31
[2018-05-31 13:26] LABS: ABSOLUTE EOSINOPHILS # (AUTO) 0.1 10^3/uL (0.0-0.6); ABSOLUTE LYMPHOCYTES (AUTO) 1.4 10^3/uL (0.5-4.7); ABSOLUTE MONOCYTES (AUTO) 0.4 10^3/uL (0.1-1.4); BASOPHILS % (AUTO) 0.8 % (0-2); EOSINOPHILS % (AUTO) 0.9 % (0-6); HEMATOCRIT 35.8 % (37.9-51.0); HEMOGLOBIN 12.2 g/dL (13.5-17.0); LYMPHOCYTES % (AUTO) 23.2 % (13-45); MEAN CORPUSCULAR HEMOGLOBIN 31.7 pg (27.0-33.4); MEAN CORPUSCULAR VOLUME 93 fl (80-97); MONOCYTES % (AUTO) 7.3 % (3-13); PLATELET COUNT 179 10^3/uL (150-450); RED BLOOD COUNT 3.83 10^6/uL (4.35-5.55); RED CELL DISTRIBUTION WIDTH 15.7 % (11.5-14.0); SEGMENTED NEUTROPHILS % (AUTO) 67.8 % (42-78); TOTAL CELLS COUNTED % (AUTO) 100 %; WHITE BLOOD COUNT 5.9 10^3/uL (4.0-10.5)
[2018-05-31 13:38] LABS: APPEARANCE,URINE CLEAR; BILIRUBIN,URINE NEGATIVE (NEGATIVE); COLOR,URINE YELLOW; GLUCOSE, URINE NEGATIVE (NEGATIVE); KETONES,URINE NEGATIVE (NEGATIVE); LEUKOCYTE ESTERASE,URINE NEGATIVE (NEGATIVE); NITRITE,URINE NEGATIVE (NEGATIVE); PROTEIN,URINE NEGATIVE (NEGATIVE); URINE SPECIFIC GRAVITY 1.009
--- NOTE | 2018-05-31 13:40 | RADIOLOGY REPORT (SQ) ---
EXAM DESCRIPTION: CT HEAD WITHOUT COMPLETED DATE/TIME: 05/31/2018 1:31 pm REASON FOR STUDY: memory problems COMPARISON: 04/11/2018 TECHNIQUE: Axial images acquired through the brain without intravenous contrast. Images reviewed wi th bone, brain and subdural windows. Additional sagittal and coronal reconstructions were generated. Images stored on PACS. All CT scanners at this facility use dose modulation, iterative reconstruction, and/or weight based d osing when appropriate to reduce radiation dose to as low as reasonably achievable (ALARA). [facility]: Dose Right [facility]: CareDose [facility]: Dose Right [facility]: Teradose 4D [facility]: Smart Technologies RADIATION DOSE: CT Rad equipment meets quality standard of care and radiation dose reduction techniq ues were employed. CTDIvol: 53.2 mGy. DLP: 1097 mGy-cm. mGy. LIMITATIONS: None. FINDINGS: VENTRICLES: Normal size and contour. CEREBRUM: No masses. No hemorrhage. No midline shift. No evidence for acute infarction. Redemonstr ated lacunar infarction of the left thalamus. CEREBELLUM: No masses. No hemorrhage. No alteration of density. No evidence for acute infarction. EXTRAAXIAL SPACES: No fluid collections. No masses. ORBITS AND GLOBE: No intra- or extraconal masses. Normal contour of globe without masses. CALVARIUM: No fracture. PARANASAL SINUSES: No fluid or mucosal thickening. SOFT TISSUES: No mass or hematoma. OTHER: No other significant finding. IMPRESSION: No acute intracranial pathology. No noncontrast CT findings to explain memory loss. Re demonstrated lacunar infarction of the left thalamus. EVIDENCE OF ACUTE STROKE: NO. COMMENT: Quality ID # [id number]: Final reports with documentation of one or more dose reduction techniques (e.g., Automated exposure control, adjustment of the mA and/or kV according to patient size, use of iterative reconstruction technique) TECHNICAL DOCUMENTATION: JOB ID: [id number] [employer]- All Rights Reserved Reading location - IP/workstation name: [id number]
[2018-05-31 13:41] LABS: ALANINE AMINOTRANSFERASE 21 U/L (21-72); ALBUMIN 4.2 g/dL (3.5-5.0); ALKALINE PHOSPHATASE 69 U/L (38-126); ANION GAP 8 (5-19); ASPARTATE AMINO TRANSFERASE 26 U/L (17-59); BILIRUBIN,DIRECT 0.7 mg/dL (0.0-0.4); BILIRUBIN,TOTAL 0.8 mg/dL (0.2-1.3); BLOOD UREA NITROGEN 17 mg/dL (7-20); CALCIUM 9.5 mg/dL (8.4-10.2); CARBON DIOXIDE 28 mmol/L (22-30); CHLORIDE 110 mmol/L (98-107); GLUCOSE 98 mg/dL (75-110); POTASSIUM 3.5 mmol/L (3.6-5.0); SODIUM 145.8 mmol/L (137-145); TOTAL PROTEIN 6.8 g/dL (6.3-8.2)
[2018-05-31 13:42] LABS: ACETAMINOPHEN < 10 ug/mL (10-30); ALCOHOL < 10 mg/dL (NONE DETECTED); SALICYLATE < 1.0 mg/dL (2.0-20.0)
[2018-05-31 13:56] LABS: URINE AMPHETAMINES SCREEN NEGATIVE; URINE BARBITURATES SCREEN NEGATIVE; URINE BENZODIAZEPINES SCREEN NEGATIVE; URINE COCAINE SCREEN NEGATIVE; URINE MARIJUANA (THC) SCREEN UNCONFIRMED POSITIVE; URINE METHADONE SCREEN NEGATIVE; URINE PHENCYCLIDINE SCREEN NEGATIVE
[2018-05-31 14:05] LABS: ANISOCYTOSIS SLIGHT; OVALOCYTES 2+; PLATELET COMMENT ADEQUATE; POIKILOCYTOSIS 2+
--- NOTE | 2018-05-31 15:03 | ER Document Report ---
ED General - General Chief Complaint: Suicidal Ideation Stated Complaint: ALTERED MENTAL STATE Time Seen by Provider: 05/31/18 12:57 [facility] - Follow up as needed Mode of Arrival: Ambulatory TRAVEL OUTSIDE OF THE [place] IN LAST 30 DAYS: No - HPI Notes: Patient is a 58-year-old male with a history of schizophrenia and depression who presents the emergency department complaining of confusion and having suicidal thoughts. Patient states that he is currently living at the nursing home and has not been taking any medicines there. He has had similar presentation a couple other times in the recent past. Patient states that he is able to eat and drink without difficulty, but does have a decreased p.o. intake. He is urinating normally and having normal bowel movements. Denies drug allergies. Patient was reportedly accompanied by his grandson who noted increase in aggression and some behavioral changes, but the grandson is no longer here. Patient admits to marijuana use, but no other drugs. Patient states on occasion he will have visual and auditory hallucinations. He has been having SI w/o any planning. No HI. Denies any headache, fever, head injury, neck pain, changes in vision/speech/hearing, URI, sore throat, chest pain, palpitations, syncope, cough, shortness of breath, wheeze, dyspnea, abdominal pain, nausea/vomiting/diarrhea, urinary retention, dysuria, hematuria, loss of control of bowel or bladder, numbness/tingling, saddle anesthesia, muscle paralysis/weakness, or rash. - Related Data Allergies/Adverse Reactions: No Known Allergies Allergy (Verified 05/31/18 12:19) Past Medical History - General Information source: Patient - Social History Smoking Status: Current Every Day Smoker Frequency of alcohol use: None Drug Abuse: None Family History: Reviewed & Not Pertinent Patient has suicidal ideation: Yes Patient has homicidal ideation: No - Past Medical History Cardiac Medical History: Reports: Hx Hypercholesterolemia, Hx Hypertension Renal/ Medical History: Denies: Hx Peritoneal Dialysis Psychiatric Medical History: Reports: Hx Depression, Hx Schizophrenia - Immunizations Hx Diphtheria, Pertussis, Tetanus Vaccination: Yes Review of Systems - Review of Systems -: Yes All other systems reviewed and negative Physical Exam - Vital signs Vitals: Temp Pulse Resp BP Pulse Ox 97.7 F 74 16 168/87 H 97 05/31/18 12:30 05/31/18 12:30 05/31/18 12:30 05/31/18 12:30 05/31/18 12:30 - Notes Notes: PHYSICAL EXAMINATION: GENERAL: Well-appearing, well-nourished and in no acute distress. A&O to person and place, missed the year by 1 and does not know the month. he knows who the president is. Answers questions appropriately. HEAD: Atraumatic, normocephalic. Non-tender. EYES: Pupils equal round and reactive to light, extraocular movements intact, sclera anicteric, conjunctiva are normal. No nystagmus. vis valentine intact. ENT: EAC clear b/l. TM's intact b/l without erythema, fluid, or perforation. Nares patent and without discharge. oropharynx clear without exudates. No tonsilar hypertrophy or erythema. Moist mucous membranes. No sinus tenderness. NECK: Normal range of motion, supple without lymphadenopathy. No rigidity/meningismus. No midline tenderness. LUNGS: Breath sounds clear to auscultation bilaterally and equal. No wheezes rales or rhonchi. HEART: Regular rate and rhythm without murmurs, rubs, gallops. ABDOMEN: Soft, nontender, nondistended abdomen. No guarding, no rebound. Normal bowel sounds present. No CVA tenderness bilaterally. Musculoskeletal: Ext's b/l: FROM to passive/active. Strength 5+/5. No deficits noted. No bony tenderness of extremities. Extremities: No cyanosis, clubbing, or edema b/l. Peripheral pulses 2+. Capillary refill less than 2 seconds. NEUROLOGICAL: NIH 0. GCS 15. Cranial nerves grossly intact. Normal speech, normal gait. Normal sensory, motor exams. Reflexes 2+ b/l. ASHLEE's negative. Pronator drift negative. Heel/palma, finger/nose wnl. PSYCH: Normal mood, normal affect. SKIN: Warm, Dry, normal turgor, no rashes or lesions noted. Course - Re-evaluation Re-evalutation: 05/31/18 15:05 Patient is an afebrile, well-hydrated, 58-year-old male who presents emergency department for suspected relapse of psychosis as he is not taking his medicines with passive SI. Labs are acceptable at this time. CT scan unremarkable. Patient cleared medically for evaluation by our psychology team. He is nontoxi c-appearing and is tolerating p.o. without difficulty. Exam was unremarkable. Vitals are acceptable without significant tachycardia, tachypnea, or hypoxia. 05/31/18 16:24 Our psychology team has recommended IVC petition paperwork for an overnight stay to restart medications. We will be starting Depakote 500 mg twice daily, BuSpar 10 mg twice daily, and continuing Prozac 20 mg daily, Neurontin 300 mg every morning, and Neurontin 600 mg every evening. Patient is in agreement with this plan. - Vital Signs Vital signs: Temp Pulse Resp BP Pulse Ox 97.7 F 88 16 156/76 H 97 05/31/18 12:31 05/31/18 12:31 05/31/18 12:31 05/31/18 12:31 05/31/18 12:31 - Laboratory Result Diagrams: 05/31/18 13:16 05/31/18 13:16 Laboratory results interpreted by me: 05/31/18 05/31/18 05/31/18 13:16 13:16 13:16 RBC 3.83 L Hgb 12.2 L Hct 35.8 L RDW 15.7 H Sodium 145.8 H Potassium 3.5 L Chloride 110 H Creatinine 1.66 H Est GFR ( Amer) 52 L Est GFR (Non-Af Amer) 43 L Direct Bilirubin 0.7 H Urine Urobilinogen 2.0 H Salicylates < 1.0 L Acetaminophen < 10 L Discharge - Discharge Clinical Impression: Mental health disorder Condition: Stable Disposition: PSYCH HOSP/UNIT [facility] [[facility] - Follow up as needed
--- NOTE | 2018-05-31 16:07 | PSYCHOLOGICAL NOTE ---
Psych Note - Psych Note Date seen by psych provider: 05/31/18 Time seen by psych provider: 13:45 Psych Note: Reason for consult: SI, AMS Contact Permissions: Federico Garcia [phone] Patient is a 58 yo male presenting to the ED with a friend for concerns of SI and AMS. Chart review shows that patient was seen in March 2018 with HI, AMS and April 2018 with AV/H and confusion. He was IVC at last visit and transferred to inpatient [facility] in [place]. CT shows no pathology, no evidence of stroke, and no findings to explain memory losses. Toxicology screen was positive for THC. Patient reports "they let me do anything/just walk the halls but my problems were just the same when I got out". Patient states he's in the ED today to "get clean from cocaine". He relays that his parents just , that he thought he saw something crawling on his arm when they came to take his blood, worries that he's going to rehab, AA, or detox x3 and worries about having a tic on his right side for the last few weeks. He is noted to fidget from head to toe throughout the evaluation. He reports taking his medication daily, endorses SI (only when I'm alone), and HI often but none now. He admits to hx of cocaine use. Mr. Garcia who knows the patient from the [facility] reports that he was aware patient had MH but "you just wouldn't know it". He reports drastic decline in the last few weeks "his memory has faded away/has no clue what's going on/speaks in fragments jumping from subject to subject, verbalizes SI and HI, and has stopped eating these last 2 weeks. He has started to take patient to work with him but patient's increasing mood lability, depression, and aggression is making this difficult. He's become so worried that he's reached out to patient's family who won't speak to him or their brother and has reached out to Leonor Hernandez at the [facility] who manages patient's case. She recommended patient be brought to the ED today. The [facility] manage and administer patient's medications. Patient is alert and oriented to person, place and time. He is confused about why in the ED - thinks its to rehab for cocaine use. Mood is euthymic "pretty good" with congruent affect. Patient denies SI, HI, and endores AV/H, "saw I saw some shit crawling on my arm". Conversational speech was tangential. Eye contact was well maintained. Thought processes were disorganized with flight of ideas. Intellectual abilities were estimated within the average range. Attention/concentration was WNL while, insight, judgment, and impulse control were poor aeb patient is noted to have psychomotor agitation and explains he has "involuntary tic" on his right side. Diagnosis: 295.70 F25 Schizoaffective Disorder, Bipolar Type, per hx Medication recommendations as per psychiatric provider, Dr. Moulton are as follows: Start Depakote 500mg bid Start Buspar 10mg bid Continue Prozac 20mg daily Continue Neurontin 300mg QAM, 600mg QHS Patient is recommended for IVC due to risk of harm to self and others aeb he is presenting with AMS, visual hallucinations and confusion that impair his insight, judgment, and impulse control. Plan is to hold overnight for further observation and medication stabilization. [facility] who administer his [facility] on a daily basis which [facility] at this time so outpatient medication cannot be confirmed yet. It is likely though that they have changed since his last visit since he went inpatient to [place] and patient presents as though manic. Consulted Dr. Gonzales in the care and treatment of this patient and ED physician who is in agreement with recommendation and disposition.
[2018-05-31] MEDS: DIVALPROEX SODIUM 500 MG TAB.SR.24H PO SCH (17:40)
[2018-05-31] MEDS: BUSPIRONE HCL 10 MG TABLET PO SCH (17:40)
--- NOTE | 2018-05-31 18:38 | EKG REPORT ---
SEVERITY:- ABNORMAL ECG - SINUS RHYTHM LEFT ANTERIOR FASCICULAR BLOCK BORDERLINE T WAVE ABNORMALITIES PROLONGED QT INTERVAL : Confirmed by: Gisella Medina MD 31-May-2018 18:37:12
[2018-05-31] MEDS: GABAPENTIN 300 MG CAPSULE PO SCH (21:56)
[2018-05-31] MEDS ORDERED: LORAZEPAM 1 MG TABLET PO ONE (23:37)
[2018-06-01] MEDS: GABAPENTIN 300 MG CAPSULE PO SCH ×2 (07:35→23:02)
[2018-06-01] MEDS: BUSPIRONE HCL 10 MG TABLET PO SCH ×2 (09:14→17:52)
[2018-06-01] MEDS: DIVALPROEX SODIUM 500 MG TAB.SR.24H PO SCH ×2 (09:15→17:52)
[2018-06-01] MEDS: FLUOXETINE HCL 20 MG CAPSULE PO SCH ×2 (09:15→09:22)
--- NOTE | 2018-06-01 09:50 | ER Document Report ---
Doctor's Note Notes: 06/01/18 09:49 Patient seen and evaluated by myself. Vital signs are stable. No issues overnight per nursing. Patient has a history of schizophrenia and depression. He has been manic while in the emergency department. Behavioral health saw the patient yesterday. They wanted to restart medications. Started Depakote 500 mg twice daily, BuSpar 10 mg twice daily, and continuing Prozac 20 mg daily, Neurontin 300 mg every morning, and Neurontin 600 mg every evening. Patient continues to be manic despite medication. [facility] feels the patient needs inpatient treatment. 06/01/18 09:50
--- NOTE | 2018-06-01 11:50 | PSYCHOLOGICAL NOTE ---
Psych Note - Psych Note Date seen by psych provider: 06/01/18 Time seen by psych provider: 08:45 Psych Note: Reason for consult: SI, AMS 1st re-evaluation Contact Permissions: Federico Garcia [phone], Sister Maritza Maxwell [phone] Patient is a 58 yo male presenting to the ED on 05/31/18 with a friend for concerns of SI and AMS. Chart review shows that patient was seen in March 2018 with HI, AMS and April 2018 with AV/H and confusion. He was IVC at last visit and transferred to inpatient [place] in [place]. CT shows no pathology, no evidence of stroke, and no findings to explain memory losses. Toxicology screen was positive for THC. Patient presented with hallucinations and confusion so was placed on IVC yesterday. Today he is pacing inside and outside the room, cannot comprehend how to use the no touch sensor paper towel dispenser and wants to take it from the wall to repair it. The impetus for this act is spilled juice into his cereal. In between cleaning the spill and bothering the towel dispenser, patient worries about his missing teeth, wonders where [place] is, and wanders outside the room for various reasons. He did give consent to speak with his brother and sister, says he would like to speak to them as well and tells investigator cash shortage that he struggled with SI last night but doesn't have any thoughts of SI now. Patient is alert and oriented x4. He does relay that he has SI and had to "deal with it real hard last night". Mood is anxious with congruent anxious/agitated affect aeb hand wringing, pacing. Patient denies HI and AV/H but is noted to be responding to internal stimuli in the room looking back at the chair repeatedly and patient later reports he's been playing cards with [place] all day yesterday and today. Conversational speech was tangential. Eye contact was poorly maintained as patient was looking and moving al over the room and outside the room. Thought processes were disorganized with flight of ideas. Intellectual abilities were estimated within the average range but impaired in immediate and remote memory. Attention/concentration was poor as patient had to be redirected multiple times to leave the paper towel dispenser alone. Insight, judgment, and impulse control were poor. Diagnosis: 295.70 F25 Schizoaffective Disorder, Bipolar Type, per hx Medication recommendations as per psychiatric provider, Dr. Moultno are as follows: Depakote 500mg bid Buspar 10mg bid Prozac 20mg daily Neurontin 300mg QAM, 600mg QHS Impression/Plan: Patient is recommended to maintain IVC due to risk of harm to self and others aeb he is presenting with mehran aeb increased energy and pressured speech, visua l hallucinations and confusion that impair his insight, judgment, and impulse control. Plan is to seek inpatient psychiatric hospitalization while concurrently stabilizating on medication. [facility] and [facility]'s [facility]. Consulted Dr. Gonzales in the care and treatment of this patient and ED physician who is in agreement with recommendation and disposition.
[2018-06-01] MEDS ORDERED: ACETAMINOPHEN 325 MG TABLET PO ONE (22:55)
[2018-06-02] MEDS: BUSPIRONE HCL 10 MG TABLET PO SCH (09:01)
[2018-06-02] MEDS: GABAPENTIN 300 MG CAPSULE PO SCH (09:01)
[2018-06-02] MEDS: FLUOXETINE HCL 20 MG CAPSULE PO SCH (09:02)
[2018-06-02] MEDS: DIVALPROEX SODIUM 500 MG TAB.SR.24H PO SCH (09:03)
--- NOTE | 2018-06-02 09:38 | ER Document Report ---
Doctor's Note Notes: 06/02/18 09:36 Patient seen and examined. Vital signs reviewed, discussed and reviewed nursing notes, and previous notes on this patient. He initially presented with mehran secondary to bipolar disease, he seems to be stabilized on medications that were started, will continue these going forward, [facility], or continue to monitor in the emergency department and if stable, will discharge on his medications in the next several days, discussed with the behavioral health team. Patient updated on plan of care, no other complaints and the patient at this time.
--- NOTE | 2018-06-02 14:23 | PSYCHOLOGICAL NOTE ---
Psych Note - Psych Note Date seen by psych provider: 06/02/18 Time seen by psych provider: 07:55 Psych Note: Reason for Consult: Suicidal ideation and altered mental status Patient is a 58 yo male presenting to the ED on 05/31/18 with a friend for concerns of SI and AMS. Check-in conducted with patient Patient reports that he has been taking his medications as prescribed. He confirms he does not currently have a place to stay as his family members will not allow him to stay with his brother. He reports that he has been having some issues with forgetting things. Patient is demonstrating organized and linear thought process with fair eye contact. Patient denies recent substance misuse. Medication recommendations as per psychiatric provider, Dr. Moulton are as follows: Depakote 500mg twice daily Buspar 10mg twice daily Prozac 20mg daily Neurontin 300mg every morning, 600mg every evening Diagnosis 295.70(F25.0) Schizoaffective disorder bipolar type [facility] 292.9 (F14.99) unspecified stimulant related disorder; cocaine per [facility] by the [facility] 292.9 (F12.99) unspecified cannabis related disorder [facility] by [facility] Impression/plan: Patient is recommended to continue under IVC; patient has been accepted to [facility]. Transportation has been requested. While patient presented well this morning during reevaluation, patient has shown history of quickly decompensating. APS is currently involved. Dr. Gonzales was consulted and the care management this patient; attending physician is agreement with recommendations and disposition.
[2018-06-02 14:59] VITALS: BP 163/90
== END 2018-06-02 15:30 ==
LOC: ER 12:19
DX: F99 Mental disorder, not otherwise specified (principal); F20.9 Schizophrenia, unspecified; F32.9 Major depressive disorder, single episode, unspecified; R41.0 Disorientation, unspecified; F17.200 Nicotine dependence, unspecified, uncomplicated; I10 Essential (primary) hypertension
CPT/HCPCS: 36415; 70450; 80053; 80307; 81001; 85025; 93005; 93010; 99285

== ENCOUNTER 2018-07-26 21:33 | Emergency (ER) | payer OTHER ==
[2018-07-26 22:33] VITALS: BP 108/65
[2018-07-27] MEDS ORDERED: MORPHINE SULFATE 10 MG/ML INJ IV ONE (02:09)
--- NOTE | 2018-07-27 02:12 | ER Document Report ---
ED General - General Chief Complaint: Lower Abdominal Pain Stated Complaint: LOWER ABDOMINAL PAIN Time Seen by Provider: 07/27/18 02:02 Primary Care Provider: STEPHEN NAGEL [Primary Care Provider] - 07/28/18 Notes: Patient is a pleasant 58-year-old male presents with complaint of lower abdominal pain. He says is been ongoing for 3 weeks. He said approximately 3 weeks ago he was at a psych facility in [place]. He said at that time he is very constipated. He says he put his finger up his rectum to show a pulse in the stool and squeezed 1 of the stool balls. He said since then he started having a lot of pain. No bleeding per rectum. He says he does not actually have any pain in the rectum itself. He said the pain is in his lower anterior abdomen. No fevers. No vomiting. He says the pain is slowly progressively worsened over the last 3 weeks. TRAVEL OUTSIDE OF THE [place] IN LAST 30 DAYS: No - Related Data Allergies/Adverse Reactions: No Known Allergies Allergy (Verified 05/31/18 12:19) Past Medical History - Social History Smoking Status: Unknown if Ever Smoked Frequency of alcohol use: None Drug Abuse: None Family History: Reviewed & Not Pertinent - Past Medical History Cardiac Medical History: Reports: Hx Hypercholesterolemia, Hx Hypertension Renal/ Medical History: Denies: Hx Peritoneal Dialysis Psychiatric Medical History: Reports: Hx Depression, Hx Schizophrenia - Immunizations Hx Diphtheria, Pertussis, Tetanus Vaccination: Yes Review of Systems - Review of Systems Notes: My Normal Review Basic REVIEW OF SYSTEMS: CONSTITUTIONAL : Denies fever, chills, or sweats. Denies recent illness. EENT: Denies eye, ear, throat, or mouth pain or symptoms. Denies nasal or sin us congestion. CARDIOVASCULAR: Denies chest pain. RESPIRATORY: Denies cough, cold, or chest congestion. Denies shortness of breath, difficulty breathing, or wheezing. GASTROINTESTINAL: Mild lower abdominal tenderness to palpation. No vomiting or diarrhea. GENITOURINARY: Denies difficulty urinating, painful urination, burning, frequency, or blood in urine. MUSCULOSKELETAL: Denies neck or back pain or joint pain or swelling. SKIN: Denies rash or skin lesions. NEUROLOGICAL: Denies altered mental status or loss of consciousness. Denies headache. Denies weakness or paralysis or loss of use of either side. Denies problems with gait or speech. Denies sensory or motor loss. ALL OTHER SYSTEMS REVIEWED AND NEGATIVE. Physical Exam - Vital signs Vitals: Temp Pulse Resp BP Pulse Ox 98.9 F 76 16 108/65 100 07/26/18 22:31 07/26/18 22:31 07/26/18 22:31 07/26/18 22:31 07/26/18 22:31 - Notes Notes: General Appearance: Well nourished, alert, cooperative, no acute distress, mild obvious discomfort. Vitals: reviewed, See vital signs table. Head: no swelling or tenderness to the head Eyes: PERRL, EOMI, Conjuctiva clear Mouth: No decreasd moisture Lungs: No wheezing, No rales, No rhonci, No accessory muscle use, good air exchange bilaterally. Heart: Normal rate, Regular rythm, No murmur, no rub Abdomen: Normal BS, soft, No rigidity, some lower abdominal tenderness palpation, No guarding, no rebound, no abdominal masses, no organomegaly Rectal exam: No pain during digital rectal exam. No blood in rectal exam. No masses felt during digital rectal exam. Extremities: strength 5/5 in all extremities, good pulses in all extremities, no swelling or tenderness in the extremities, no edema. Skin: warm, dry, appropriate color, no rash Neuro: speech clear, oriented x 3, normal affect, responds appropriately to questions. Course - Re-evaluation Re-evalutation: 07/27/18 06:16 Patient's abdominal exam is very benign. Soft. He says some mild tenderness over lower portions of the abdomen. He admits he still been having constipation. This could be contributing to his having the lower pain. Rectal exam I did not find anything concerning at all. He has no blood in exam. Laboratory evaluation is completely unremarkable. He does not have a leukocytosis. Vital signs are normal. I feel he safe to be discharged home. I encouraged him return to ER in 2 days if he still having any pain. Encouraged return to ER immediately if she has fevers, vomiting, or worsening pain. We will try him on Colace and glycerin suppositories to see if this helps relieve some of his stool burden to see if this helps with his pain that is been ongoing now for several weeks. Dictation of this chart was performed using voice recognition software; therefore, there may be some unintended grammatical errors. - Vital Signs Vital signs: Temp Pulse Resp BP Pulse Ox 98.9 F 76 16 108/65 100 07/26/18 22:31 07/26/18 22:31 07/26/18 22:31 07/26/18 22:31 07/26/18 22:31 - Laboratory Result Diagrams: 07/27/18 02:45 07/27/18 03:45 Laboratory results interpreted by me: 07/27/18 07/27/18 07/27/18 02:45 03:45 03:50 RBC 3.38 L Hgb 11.1 L Hct 32.6 L RDW 14.5 H Monocytes % 13.4 H Chloride 110 H BUN 21 H Total Protein 5.9 L Albumin 3.3 L Urine Urobilinogen 2.0 H Discharge - Discharge Clinical Impression: Abdominal pain Qualifiers: Abdominal location: lower abdomen, unspecified Qualified Code(s): R10.30 - Lower abdominal pain, unspecified Condition: Good Disposition: HOME, SELF-CARE Additional Instructions: Your laboratory work did not show any concerning findings. X-ray did not show a any concerning findings either other than you do have moderate amount of stool. This could be causing your pain. We will place you on some medicine to help relieve any constipation. We of course cannot to you for sure if that all your pain is related to constipation therefore you need to have a low threshold to return to ER if you start having fevers, vomiting, or worsening pain. Return to the ER in 36 hours for reevaluation if you are still having pain despite treatment we have prescribed. Prescriptions: Docusate Sodium [Colace] 100 mg PO BID #14 capsule RX: Glycerin [Adult Glycerin] 1 each RC BID #14 supp.rect [facility]errals: [facility] [Primary Care [facility]] - 07/28/18
[2018-07-27 03:09] LABS: ABSOLUTE BASOPHILS # (AUTO) 0.1 10^3/uL (0.0-0.2); ABSOLUTE EOSINOPHILS # (AUTO) 0.1 10^3/uL (0.0-0.6); ABSOLUTE LYMPHOCYTES (AUTO) 2.1 10^3/uL (0.5-4.7); ABSOLUTE MONOCYTES (AUTO) 1.2 10^3/uL (0.1-1.4); ABSOLUTE NEUT (AUTO) 5.7 10^3/uL (1.7-8.2); EOSINOPHILS % (AUTO) 1.3 % (0-6); HEMATOCRIT 32.6 % (37.9-51.0); HEMOGLOBIN 11.1 g/dL (13.5-17.0); LYMPHOCYTES % (AUTO) 22.9 % (13-45); MEAN CORPUSCULAR HEMOGLOBIN 32.8 pg (27.0-33.4); MEAN CORPUSCULAR HGB CONC 34.1 g/dL (32.0-36.0); MEAN CORPUSCULAR VOLUME 96 fl (80-97); MONOCYTES % (AUTO) 13.4 % (3-13); PLATELET COUNT 244 10^3/uL (150-450); RED BLOOD COUNT 3.38 10^6/uL (4.35-5.55); RED CELL DISTRIBUTION WIDTH 14.5 % (11.5-14.0); SEGMENTED NEUTROPHILS % (AUTO) 61.4 % (42-78); TOTAL CELLS COUNTED % (AUTO) 100 %; WHITE BLOOD COUNT 9.3 10^3/uL (4.0-10.5)
--- NOTE | 2018-07-27 03:38 | RADIOLOGY REPORT (SQ) ---
EXAM DESCRIPTION: XR ABDOMEN SUPINE AND ERECT WITH CHEST (ABD ACUTE SERIES) COMPLETED DATE/TME: 07/27/2018 02:08 CLINICAL HISTORY: 58 years, Male, abdominal pain COMPARISON: Chest radiograph April 11, 2018. FINDINGS: Diffuse prominence of the pulmonary interstitium is unchanged and suggestive of chronic lung disease . No focal pulmonary opacities. No pleural abnormalities. The cardiac silhouette is normal. Retained stool seen throughout the colon. No abnormal air-fluid levels. Nonobstructive bowel gas pattern. No acute osseous abnormality. IMPRESSION: No acute cardiopulmonary disease. Findings suggestive of constipation
[2018-07-27] MEDS ORDERED: ONDANSETRON HCL INJ/PF 4 MG/2 ML SDV IV ONE (03:49)
[2018-07-27 04:03] LABS: APPEARANCE,URINE CLEAR; BILIRUBIN,URINE NEGATIVE (NEGATIVE); COLOR,URINE YELLOW; GLUCOSE, URINE NEGATIVE (NEGATIVE); KETONES,URINE NEGATIVE (NEGATIVE); LEUKOCYTE ESTERASE,URINE NEGATIVE (NEGATIVE); NITRITE,URINE NEGATIVE (NEGATIVE); PROTEIN,URINE NEGATIVE (NEGATIVE); URINE SPECIFIC GRAVITY 1.017
[2018-07-27 04:15] LABS: ALANINE AMINOTRANSFERASE 21 U/L (21-72); ALBUMIN 3.3 g/dL (3.5-5.0); ALKALINE PHOSPHATASE 51 U/L (38-126); ANION GAP 7 (5-19); ASPARTATE AMINO TRANSFERASE 21 U/L (17-59); BILIRUBIN,DIRECT 0.3 mg/dL (0.0-0.4); BILIRUBIN,TOTAL 0.5 mg/dL (0.2-1.3); BLOOD UREA NITROGEN 21 mg/dL (7-20); CALCIUM 8.8 mg/dL (8.4-10.2); CARBON DIOXIDE 24 mmol/L (22-30); CHLORIDE 110 mmol/L (98-107); GLUCOSE 90 mg/dL (75-110); POTASSIUM 4.3 mmol/L (3.6-5.0); SODIUM 141.3 mmol/L (137-145); TOTAL PROTEIN 5.9 g/dL (6.3-8.2)
== END 2018-07-27 05:51 | disposition home or self-care (01) ==
LOC: ER 21:33
DX: R10.30 Lower abdominal pain, unspecified (principal); K59.00 Constipation, unspecified; E78.00 Pure hypercholesterolemia, unspecified; I10 Essential (primary) hypertension
CPT/HCPCS: 99284; 96374; 96375; 36415; 85025; 80053; 81001; 74022; J2270; J2405

== ENCOUNTER 2019-06-28 12:27 | Emergency (ER) | payer OTHER, MEDICAID ==
--- NOTE | 2019-06-28 15:48 | ER Document Report ---
Entered by MARKUS SHI SCRIBE 06/28/19 1536 Acting as scribe for:MARQUISE MEREDITH DO ED GI/ - General Chief Complaint: Abdominal Pain Stated Complaint: FALL- BACK PAIN Time Seen by Provider: 06/28/19 14:12 Primary Care Provider: [facility] [Primary [facility]] - Follow up as needed Information source: Patient Notes: This 59 year old male patient presents from the [place] for complaints of a fall just prior to arrival today. Patient was at the [facility] for a routine check up and he fell on to his left chest and was "very tender so they were concerned for internal i njury". Patient states he last used cocaine about 5 days ago. Patient denies HI or SI. TRAVEL OUTSIDE OF THE [place] IN LAST 30 DAYS: No - Related Data Allergies/Adverse Reactions: No Known Allergies Allergy (Verified 05/31/18 12:19) Past Medical History - General Information source: Patient - Social History Smoking Status: Unknown if Ever Smoked Cigarette use (# per day): No Frequency of alcohol use: None Drug Abuse: None Lives with: Family Family History: Reviewed & Not Pertinent Patient has suicidal ideation: No Patient has homicidal ideation: No - Past Medical History Cardiac Medical History: Reports: Hx Hypercholesterolemia, Hx Hypertension Psychiatric Medical History: Reports: Hx Depression, Hx Schizophrenia Surgical Hx: Negative - Immunizations Hx Diphtheria, Pertussis, Tetanus Vaccination: Yes Review of Systems - Review of Systems Constitutional: No symptoms reported EENT: No symptoms reported Cardiovascular: See HPI, Other - chest wall pain, reproducible Respiratory: No symptoms reported Gastrointestinal: No symptoms reported Genitourinary: No symptoms reported Male Genitourinary: No symptoms reported Musculoskeletal: No symptoms reported Skin: No symptoms reported Hematologic/Lymphatic: No symptoms reported Neurological/Psychological: No symptoms reported -: Yes All other systems reviewed and negative Physical Exam - Vital signs Vitals: Temp Pulse Resp BP Pulse Ox 97.5 F 92 18 117/82 97 06/28/19 13:28 06/28/19 13:28 06/28/19 13:28 06/28/19 13:28 06/28/19 13:28 - Notes Notes: Physical Exam: General: Alert, appears well. HEENT: Normocephalic. Atraumatic. PERRL. Extraocular movements intact. Oropharynx clear. Neck: Supple. Non-tender. Respiratory: No respiratory distress. Clear and equal breath sounds bilaterally. Lower chest wall tenderness with palpation. Cardiovascular: Regular rate and rhythm. Abdominal: Normal Inspection. Non-tender. No distension. Normal Bowel Sounds. Back: No gross abnormalities. Extremities: Moves all four extremities. Upper extremities: Normal inspection. Normal ROM. Lower extremities: Normal inspection. No edema. Normal ROM. Neurological: Normal cognition. AAOx4. Normal speech. Psychological: Normal affect. Normal Mood. Skin: Warm. Dry. Normal color. Course - Vital Signs Vital signs: Temp Pulse Resp BP Pulse Ox 97.2 F 91 16 120/82 97 06/28/19 16:59 06/28/19 16:59 06/28/19 16:59 06/28/19 16:59 06/28/19 16:59 Discharge - Discharge Clinical Impression: Fall Qualifiers: Encounter type: initial encounter Qualified Code(s): W19.XXXA - Unspecified fall, initial encounter GERD (gastroesophageal reflux disease) Qualifiers: Esophagitis presence: esophagitis presence not specified Qualified Code(s): K21.9 - Gastro-esophageal reflux disease without esophagitis Condition: Good Disposition: HOME, SELF-CARE Instructions: Low Back Pain ([facility]) Additional Instructions: Please return here for any problems or any concerns. Take tylenol for pain. Avoid cocaine use. Stop smoking. Prescriptions: Sucralfate [Carafate 1 gm Tablet] 1 gm PO TID #40 tablet Referrals: [facility] [Primary [facility]] - Follow up as needed I personally performed the services described in the documentation, reviewed and edited the documentation which was dictated to the scribe in my presence, and it accurately records my words and actions.
[2019-06-28 16:59] VITALS: BP 120/82
== END 2019-06-28 15:58 | disposition home or self-care (01) ==
LOC: ER 12:27
DX: R07.9 Chest pain, unspecified (principal); K21.9 Gastro-esophageal reflux disease without esophagitis; W19.XXXA Unspecified fall, initial encounter; E78.00 Pure hypercholesterolemia, unspecified; I10 Essential (primary) hypertension; F20.9 Schizophrenia, unspecified
CPT/HCPCS: 99283

== ENCOUNTER 2019-10-27 19:12 | Emergency (ER) | payer OTHER, MEDICAID ==
[2019-10-27] MEDS ORDERED: POLYMYXIN B SULFATE/TMP OPH SOLN (10 ML/ER DISP) OD ONE (20:14)
--- NOTE | 2019-10-27 20:17 | ER Document Report ---
HPI - HPI Time Seen by Provider: 10/27/19 20:08 Pain Level: 4 Context: Patient is a 59-year-old male who presents the emergency department with a chief complaint of left eye blurriness and a bump to his left upper lip. Patient has associated discharge. Patient started noticing his symptoms about a week ago. Denies getting anything in his eye. Denies foreign body sensation in eye. - ROS Systems Reviewed and Negative: Yes All other systems reviewed and negative - CONSTITUTIONAL Constitutional: DENIES: Fever, Chills - EENT EENT: REPORTS: Eye problems - Left eye discharge - NEURO Neurology: DENIES: Headache - RESPIRATORY Respiratory: DENIES: Trouble Breathing, Coughing - GASTROINTESTINAL Gastrointestinal: DENIES: Abdominal Pain - REPRODUCTIVE Reproductive: DENIES: : - MUSCULOSKELETAL Musculoskeletal: DENIES: Extremity pain - DERM Skin Color: Normal Skin Problems: None Past Medical History - General Information source: Patient - Social History Smoking Status: Current Every Day Smoker Frequency of alcohol use: None Drug Abuse: None Family History: Reviewed & Not Pertinent Patient has homicidal ideation: No - Past Medical History Cardiac Medical History: Reports: Hx Hypercholesterolemia, Hx Hypertension Renal/ Medical History: Denies: Hx Peritoneal Dialysis Psychiatric Medical History: Reports: Hx Depression, Hx Schizophrenia - Immunizations Hx Diphtheria, Pertussis, Tetanus Vaccination: Yes Vertical Provider Document - CONSTITUTIONAL Agree With Documented VS: Yes Exam Limitations: No Limitations General Appearance: No Apparent Distress - INFECTION CONTROL TRAVEL OUTSIDE OF THE [place] IN LAST 30 DAYS: No - HEENT HEENT: Atraumatic, Conjuctival Injection - Left, Normocephalic, PERRLA Notes: Hordeolum noted to left lateral upper lid - NECK Neck: Normal Inspection - RESPIRATORY Respiratory: No Respiratory Distress - CARDIOVASCULAR Cardiovascular: Regular Rate - MUSCULOSKELETAL/EXTREMETIES Musculoskeletal/Extremeties: FROM - NEURO Level of Consciousness: Awake, Alert, Appropriate Motor/Sensory: No Motor Deficit, No Sensory Deficit - DERM Integumentary: Warm, Dry Course - Re-evaluation Re-evalutation: 10/27/19 20:17 Patient's physical exam is consistent with bacterial conjunctivitis with a hordeolum. Patient will be started on Polytrim eyedrops. He had yellow discharge noted to his left medial eye. We will start him on Polytrim eyedrops. Discussed follow-up with ophthalmology if needed. He is in agreement with this plan. No globe rupture or Sheldon sign. Follow-up precautions were given. Verbal discharge instructions were given to the patient. They verbalized understanding. They are stable for discharge. - Vital Signs Vital signs: Temp Pulse Resp BP Pulse Ox 98.4 F 98 16 162/91 H 93 10/27/19 20:06 10/27/19 19:16 10/27/19 19:16 10/27/19 19:16 10/27/19 19:16 Discharge - Discharge Clinical Impression: Hordeolum externum (stye) Qualifiers: Laterality: left Eyelid: upper Qualified Code(s): H00.014 - Hordeolum externum left upper eyelid Conjunctivitis Qualifiers: Conjunctivitis type: acute Acute conjunctivitis type: bacterial Laterality: left Qualified Code(s): H10.32 - Unspecified acute conjunctivitis, left eye Condition: Stable Disposition: HOME, SELF-CARE Additional Instructions: Your eye redness and blurry vision is likely due to a bacterial infections. You have been sent home with a prescription for eyedrops. Please return immediately if your child begins to complain of worsening discomfort in the eyes, you notice spreading redness around the eye, your child is complaining of difficulty with vision, your child becomes lethargic, or they have any other symptoms that are worrisome to you. You also have a stye in your eye. Use the eyedrops. Place 1 drop to your left eye 4 times a day. If you continue have problems, please follow-up with ophthalmology. Referrals: [facility] [Primary [facility]] - Follow up as needed MARTINEZ CISNEROS MD [ACTIVE STAFF] - Follow up as needed
[2019-10-27 21:04] VITALS: BP 138/84
== END 2019-10-27 20:19 | disposition home or self-care (01) ==
LOC: ER 19:12
DX: H00.014 Hordeolum externum left upper eyelid (principal); H10.32 Unspecified acute conjunctivitis, left eye; H53.8 Other visual disturbances; H57.89 Other specified disorders of eye and adnexa; F17.200 Nicotine dependence, unspecified, uncomplicated; I10 Essential (primary) hypertension
CPT/HCPCS: 99283; J3490

== ENCOUNTER 2019-11-24 16:25 | Emergency (ER) | payer OTHER, MEDICAID ==
[2019-11-24] MEDS ORDERED: NORMAL SALINE 1000 ML 1,000 ML IV PRN (16:45)
[2019-11-24 17:12] LABS: VENOUS BLOOD BASE EXCESS -0.5 mmol/L; VENOUS BLOOD HCO3 22.5 mmol/L (20-32); VENOUS BLOOD PCO2 32.4 mmHg (35-63); VENOUS BLOOD PH 7.46 (7.30-7.42)
[2019-11-24 17:19] LABS: ABSOLUTE EOSINOPHILS # (AUTO) 0.1 10^3/uL (0.0-0.6); ABSOLUTE LYMPHOCYTES (AUTO) 1.7 10^3/uL (0.5-4.7); ABSOLUTE MONOCYTES (AUTO) 0.9 10^3/uL (0.1-1.4); ABSOLUTE NEUT (AUTO) 7.7 10^3/uL (1.7-8.2); BASOPHILS % (AUTO) 0.4 % (0-2); EOSINOPHILS % (AUTO) 0.8 % (0-6); HEMATOCRIT 44.3 % (37.9-51.0); HEMOGLOBIN 15.2 g/dL (13.5-17.0); LYMPHOCYTES % (AUTO) 16.4 % (13-45); MEAN CORPUSCULAR HGB CONC 34.2 g/dL (32.0-36.0); MEAN CORPUSCULAR VOLUME 97 fl (80-97); MONOCYTES % (AUTO) 8.2 % (3-13); PLATELET COUNT 228 10^3/uL (150-450); RED BLOOD COUNT 4.59 10^6/uL (4.35-5.55); RED CELL DISTRIBUTION WIDTH 13.5 % (11.5-14.0); SEGMENTED NEUTROPHILS % (AUTO) 74.2 % (42-78); TOTAL CELLS COUNTED % (AUTO) 100 %; WHITE BLOOD COUNT 10.4 10^3/uL (4.0-10.5)
[2019-11-24 17:24] LABS: INTERNATIONAL RATION (INR) 1.04; PROTHROMBIN TIME 13.7 SEC (11.4-15.4)
[2019-11-24 17:27] LABS: ALBUMIN 4.2 g/dL (3.5-5.0); ALKALINE PHOSPHATASE 68 U/L (38-126); ANION GAP 10 (5-19); ASPARTATE AMINO TRANSFERASE 43 U/L (17-59); BILIRUBIN,TOTAL 0.7 mg/dL (0.2-1.3); BLOOD UREA NITROGEN 14 mg/dL (7-20); CALCIUM 9.5 mg/dL (8.4-10.2); CARBON DIOXIDE 24 mmol/L (22-30); CHLORIDE 107 mmol/L (98-107); GLUCOSE 90 mg/dL (75-110); POTASSIUM 3.5 mmol/L (3.6-5.0); TOTAL PROTEIN 7.7 g/dL (6.3-8.2)
[2019-11-24 18:01] LABS: APPEARANCE,URINE SLIGHTLY-CLOUDY; BILIRUBIN,URINE NEGATIVE (NEGATIVE); COLOR,URINE YELLOW; GLUCOSE, URINE NEGATIVE (NEGATIVE); KETONES,URINE TRACE mg/dL (NEGATIVE); PROTEIN,URINE NEGATIVE (NEGATIVE); URINE SPECIFIC GRAVITY 1.013
--- NOTE | 2019-11-24 18:14 | RADIOLOGY REPORT (SQ) ---
EXAM DESCRIPTION: CT HEAD WITHOUT IMAGES COMPLETED DATE/TIME: 11/24/2019 4:47 pm REASON FOR STUDY: altered mental status COMPARISON: 05/31/2018 TECHNIQUE: Axial images acquired through the brain without intravenous contrast. Images reviewed wi th bone, brain and subdural windows. Additional sagittal and coronal reconstructions were generated. Images stored on PACS. All CT scanners at this facility use dose modulation, iterative reconstruction, and/or weight based d osing when appropriate to reduce radiation dose to as low as reasonably achievable (ALARA). [facility]: Dose Right [facility]: CareDose [facility]: Dose Right [facility]: Teradose 4D [facility]: Smart [employer] RADIATION DOSE: CT Rad equipment meets quality standard of care and radiation dose reduction techniq ues were employed. CTDIvol: 53.2 mGy. DLP: 1017 mGy-cm. mGy. LIMITATIONS: None. FINDINGS: VENTRICLES: Normal size and contour. CEREBRUM: No masses. No hemorrhage. No midline shift. No evidence for acute infarction. Mild patch y periventricular and deep white matter hypodense attenuation consistent with mild chronic small vess el ischemic change. There is intracranial atherosclerosis. CEREBELLUM: No masses. No hemorrhage. No alteration of density. No evidence for acute infarction. EXTRAAXIAL SPACES: No fluid collections. No masses. ORBITS AND GLOBE: No intra- or extraconal masses. Normal contour of globe without masses. CALVARIUM: No fracture. PARANASAL SINUSES: No fluid or mucosal thickening. SOFT TISSUES: No mass or hematoma. OTHER: No other significant finding. IMPRESSION: 1. No acute intracranial hemorrhage, mass, or evidence of acute territorial infarct. 2. Mild chronic small vessel ischemic change. Intracranial atherosclerosis. EVIDENCE OF ACUTE STROKE: NO. COMMENT: Quality ID # [id number]: Final reports with documentation of one or more dose reduction techniques (e.g., Automated exposure control, adjustment of the mA and/or kV according to patient size, use of iterative reconstruction technique) TECHNICAL DOCUMENTATION: JOB ID: [id number] [employer]- All Rights Reserved Reading location - IP/workstation name: [email or web address]
[2019-11-24 18:19] LABS: URINE AMPHETAMINES SCREEN NEGATIVE; URINE BARBITURATES SCREEN NEGATIVE; URINE BENZODIAZEPINES SCREEN NEGATIVE; URINE COCAINE SCREEN UNCONFIRMED POSITIVE; URINE MARIJUANA (THC) SCREEN NEGATIVE; URINE METHADONE SCREEN NEGATIVE; URINE PHENCYCLIDINE SCREEN NEGATIVE
--- NOTE | 2019-11-24 18:24 | RADIOLOGY REPORT (SQ) ---
EXAM DESCRIPTION: CHEST SINGLE VIEW IMAGES COMPLETED DATE/TIME: 11/24/2019 4:52 pm REASON FOR STUDY: dyspnea COMPARISON: 04/11/2018 EXAM PARAMETERS: NUMBER OF VIEWS: One view. TECHNIQUE: Single frontal radiographic view of the chest acquired. RADIATION DOSE: NA LIMITATIONS: None. FINDINGS: LUNGS AND PLEURA: No opacities, masses or pneumothorax. No pleural effusion. MEDIASTINUM AND HILAR STRUCTURES: No masses. Contour normal. HEART AND VASCULAR STRUCTURES: Heart normal in size. Normal vasculature. BONES: No acute findings. HARDWARE: None in the chest. OTHER: No other significant finding. IMPRESSION: NO ACUTE RADIOGRAPHIC FINDING IN THE CHEST. TECHNICAL DOCUMENTATION: JOB ID: [id number] 2010 [employer]- All Rights Reserved Reading location - IP/workstation name: [email or web address]
--- NOTE | 2019-11-24 18:27 | EKG REPORT ---
SEVERITY:- ABNORMAL ECG - SINUS RHYTHM NONSPECIFIC T ABNORMALITIES, LATERAL LEADS : Confirmed by: Singh Rodriguez MD 24-Nov-2019 18:27:01
[2019-11-24 19:19] VITALS: BP 137/75
--- NOTE | 2019-11-24 20:07 | ER Document Report ---
ED General - General Chief Complaint: Tremor Stated Complaint: TREMORS/SHAKING Time Seen by Provider: 11/24/19 16:44 Primary Care Provider: SHONA,STEPHEN [Primary Care Provider] - Follow up as needed TRAVEL OUTSIDE OF THE [place] IN LAST 30 DAYS: No - HPI Notes: Patient presents emergency department for evaluation of altered mental status, tremors. He was noted by neighbors to be confused for the last several days. He said fine tremors. They were unsure as to whether or not he is had some seizure activity. The patient evidently has a history of seizures. He states his been having some visual hallucinations. On further questioning, the patient eventually admitted to cocaine use as well as alcohol use. He has chronic back pain which he states is not different. He denies any suicidal or homicidal ideation. - Related Data Allergies/Adverse Reactions: No Known Allergies Allergy (Verified 10/27/19 20:05) Home Medications: List reviewed with EMS Past Medical History - General Information source: Patient - Social History Smoking Status: Current Every Day Smoker Frequency of alcohol use: Heavy Drug Abuse: Cocaine Family History: Reviewed & Not Pertinent - Past Medical History Cardiac Medical History: Reports: Hx Hypercholesterolemia, Hx Hypertension Neurological Medical History: Reports: Hx Seizures Renal/ Medical History: Denies: Hx Peritoneal Dialysis Psychiatric Medical History: Reports: Hx Depression, Hx Schizophrenia - Immunizations Hx Diphtheria, Pertussis, Tetanus Vaccination: Yes Review of Systems - Review of Systems Constitutional: See HPI Musculoskeletal: See HPI Neurological/Psychological: See HPI -: Yes All other systems reviewed and negative Physical Exam - Vital signs Vitals: BP Pulse Ox 107/67 95 11/24/19 16:28 11/24/19 16:28 - Notes Notes: This is a disheveled 59-year-old male who appears his stated age in no acute distress. He exhibits repetitive movements and seems slightly agitated, but no focal seizure activity noted. Vital signs reviewed, please refer to chart. Head is normocephalic, atraumatic. Pupils equal round, reactive to light. Neck is supple without meningismus. Heart is regular rate and rhythm. Lungs are clear to auscultation bilaterally. Abdomen is soft, nontender, normoactive bowel sounds throughout. Extremities without cyanosis, clubbing. Posterior calves are nontender. Peripheral pulses are equal. Skin is warm and dry. Patient is awake, alert, initially tells me the month is 20, in addition to the ER, but is otherwise oriented. Cranial nerves II - XII are grossly intact without focal neurological deficits. Strength is plus 5 out of 5 bilateral upper and lower extremities. Sensation is intact. Reflexes symmetrical. Intact [id number], rapid alternating movements, [id number]. Course - Re-evaluation Re-evalutation: 11/24/19 20:17 Patient presents to the emergency department for evaluation. He was placed on a panel monitor. Laboratory investigations and CT imaging, chest x-ray is ordered. I suspect that all of his symptoms are secondary to cocaine and agitation as a result of this. He is told that he should stop using cocaine, pa rticularly in light of his mental health issues. He voices understanding to this. He states he would like to get help. [facility] Otherwise his laboratory investigations are unremarkable. He is to return to the emergency department for worsening or new concerning symptoms of any sort. - Vital Signs Vital signs: Temp Pulse Resp BP Pulse Ox 98.5 F 68 16 137/75 H 98 11/24/19 17:13 11/24/19 17:13 11/24/19 19:00 11/24/19 19:00 11/24/19 19:00 - Laboratory Result Diagrams: 11/24/19 16:52 11/24/19 16:52 Laboratory results interpreted by me: 11/24/19 11/24/19 11/24/19 16:52 16:52 17:40 VBG pH 7.46 H VBG pCO2 32.4 L Potassium 3.5 L Creatinine 1.29 H Est GFR (MDRD) Non-Af 57 L Urine Ketones TRACE H Urine Urobilinogen 4.0 H Leukocyte Esterase Rfl TRACE H - Diagnostic Test Radiology reviewed: Reports reviewed Radiology results interpreted by me: 11/24/19 20:18 Chest X-Ray 11/24/19 16:44 IMPRESSION: NO ACUTE RADIOGRAPHIC FINDING IN THE CHEST. Head CT 11/24/19 16:45 IMPRESSION: 1. No acute intracranial hemorrhage, mass, or evidence of acute territorial infa rct. 2. Mild chronic small vessel ischemic change. Intracranial atherosclerosis. EVIDENCE OF ACUTE STROKE: NO. Discharge - Discharge Clinical Impression: Cocaine abuse, Visual hallucinations, History of schizophrenia Condition: Stable Disposition: HOME, SELF-CARE Instructions: Cocaine Abuse ([facility]), Schizophrenia ([facility]) Additional Instructions: Please stop abusing alcohol and cocaine. Please take your medications as presc ribed. [facility] with your [facility]. Return to the emergency department with worsening or new concerning symptoms of any sort. Referrals: [facility] [Primary Care Provider] - Follow up as needed
== END 2019-11-24 20:13 | disposition home or self-care (01) ==
LOC: ER 16:25
DX: F14.10 Cocaine abuse, uncomplicated (principal); R44.1 Visual hallucinations; R25.1 Tremor, unspecified; F17.200 Nicotine dependence, unspecified, uncomplicated; G89.29 Other chronic pain; M54.9 Dorsalgia, unspecified; E78.00 Pure hypercholesterolemia, unspecified; I10 Essential (primary) hypertension
CPT/HCPCS: 93005; 99285; 96360; 36415; 87040; 87086; 80307 ×2; 83605; 85025; 85610; 87077; 80053; 81001; 84484; 80164; 82803; 87150 ×26; 71045; 70450; 93010; J7030; 87186

== ENCOUNTER 2020-05-18 16:14 | Emergency (ER) | payer OTHER ==
[2020-05-18 18:45] LABS: ABSOLUTE LYMPHOCYTES (AUTO) 1.5 10^3/uL (0.5-4.7); ABSOLUTE MONOCYTES (AUTO) 0.6 10^3/uL (0.1-1.4); ABSOLUTE NEUT (AUTO) 2.8 10^3/uL (1.7-8.2); BASOPHILS % (AUTO) 0.2 % (0-2); EOSINOPHILS % (AUTO) 0.9 % (0-6); HEMATOCRIT 30.5 % (37.9-51.0); HEMOGLOBIN 10.6 g/dL (13.5-17.0); LYMPHOCYTES % (AUTO) 29.5 % (13-45); MEAN CORPUSCULAR HEMOGLOBIN 33.5 pg (27.0-33.4); MEAN CORPUSCULAR HGB CONC 34.8 g/dL (32.0-36.0); MEAN CORPUSCULAR VOLUME 96 fl (80-97); MONOCYTES % (AUTO) 12.9 % (3-13); RED BLOOD COUNT 3.16 10^6/uL (4.35-5.55); RED CELL DISTRIBUTION WIDTH 15.6 % (11.5-14.0); SEGMENTED NEUTROPHILS % (AUTO) 56.5 % (42-78); TOTAL CELLS COUNTED % (AUTO) 100 %; WHITE BLOOD COUNT 4.9 10^3/uL (4.0-10.5)
[2020-05-18 19:06] LABS: ALBUMIN 2.8 g/dL (3.5-5.0); ALKALINE PHOSPHATASE 58 U/L (38-126); ASPARTATE AMINO TRANSFERASE 73 U/L (17-59); BILIRUBIN,DIRECT 0.3 mg/dL (0.0-0.4); BLOOD UREA NITROGEN 11 mg/dL (7-20); CALCIUM 8.3 mg/dL (8.4-10.2); CARBON DIOXIDE 27 mmol/L (22-30); CREATINE KINASE 54 U/L (55-170); GLUCOSE 81 mg/dL (75-110); POTASSIUM 3.7 mmol/L (3.6-5.0); TOTAL PROTEIN 5.3 g/dL (6.3-8.2)
[2020-05-18 19:12] LABS: CHLORIDE 94 mmol/L (98-107)
[2020-05-18 19:14] LABS: ANION GAP 4 (5-19)
[2020-05-18 19:16] LABS: CREATINE KINASE MB 0.71 ng/mL (<4.55)
[2020-05-18 19:17] LABS: TROPONIN I < 0.012 ng/mL
[2020-05-18 19:56] LABS: PLATELET COUNT 95 10^3/uL (150-450)
[2020-05-18 19:59] LABS: ANISOCYTOSIS SLIGHT; BURR CELLS 1+; OVALOCYTES SLIGHT; PLATELET COMMENT DECREASED; POIKILOCYTOSIS 1+; SCHISTOCYTES SLIGHT
--- NOTE | 2020-05-18 20:03 | RADIOLOGY REPORT (SQ) ---
EXAM DESCRIPTION: CT HEAD WITHOUT IMAGES COMPLETED DATE/TIME: 05/18/2020 7:46 pm REASON FOR STUDY: loc with ams COMPARISON: 11/24/2019 TECHNIQUE: Axial images acquired through the brain without intravenous contrast. Images reviewed wi th bone, brain and subdural windows. Additional sagittal and coronal reconstructions were generated. Images stored on PACS. All CT scanners at this facility use dose modulation, iterative reconstruction, and/or weight based d osing when appropriate to reduce radiation dose to as low as reasonably achievable (ALARA). [facility]: Dose Right [facility]: CareDose [facility]: Dose Right [facility]: Teradose 4D [facility]: Smart Edge[employer] RADIATION DOSE: CT Rad equipment meets quality standard of care and radiation dose reduction techniq ues were employed. CTDIvol: 53.2 mGy. DLP: 964 mGy-cm. mGy. LIMITATIONS: None. FINDINGS: VENTRICLES: Normal size and contour. CEREBRUM: No masses. No hemorrhage. No midline shift. Small lacunar infarction in the left thalamu s. No evidence for acute infarction. Normal chávez/white matter differentiation. No areas of low densi ty in the white matter. CEREBELLUM: No masses. No hemorrhage. No alteration of density. No evidence for acute infarction. EXTRAAXIAL SPACES: No fluid collections. No masses. ORBITS AND GLOBE: No intra- or extraconal masses. Normal contour of globe without masses. CALVARIUM: No fracture. PARANASAL SINUSES: No fluid or mucosal thickening. SOFT TISSUES: No mass or hematoma. OTHER: No other significant finding. IMPRESSION: Small old lacunar infarction in the left thalamus. No acute intracranial imaging findin gs. EVIDENCE OF ACUTE STROKE: NO. COMMENT: Quality ID # [id number]: Final reports with documentation of one or more dose reduction techniques (e.g., Automated exposure control, adjustment of the mA and/or kV according to patient size, use of iterative reconstruction technique) TECHNICAL DOCUMENTATION: JOB ID: [id number] 2010 [employer]- All Rights Reserved Reading location - IP/workstation name: [email or web address]
[2020-05-18 20:37] LABS: APPEARANCE,URINE CLEAR; BILIRUBIN,URINE NEGATIVE (NEGATIVE); COLOR,URINE AMBER; GLUCOSE, URINE NEGATIVE (NEGATIVE); KETONES,URINE TRACE mg/dL (NEGATIVE); LEUKOCYTE ESTERASE,URINE NEGATIVE (NEGATIVE); NITRITE,URINE NEGATIVE (NEGATIVE); PROTEIN,URINE NEGATIVE (NEGATIVE); URINE SPECIFIC GRAVITY 1.015
--- NOTE | 2020-05-18 20:44 | ER Document Report ---
ED General - General Chief Complaint: Fall Stated Complaint: SYNCOPE Time Seen by Provider: 05/18/20 20:43 Primary Care Provider: SHONA,STEPHEN [Primary Care Provider] - Follow up as needed TRAVEL OUTSIDE OF THE [place] IN LAST 30 DAYS: No - HPI Notes: 60-year-old male presents following a fall. Patient's initial chief complaint was related to refilling his erectile dysfunction medications as these were recently taken away from him. I discussed with patient the note that states t hat he was standing at the counter, became dizzy, fell to his knees, hit his head and had a loss of consciousness. Patient states he denies all of this. He states that his friend saw him tumbling and therefore called EMS. He denies any loss of consciousness today. He reports chronic dizziness and falls frequently, he is unsure why he falls. He reports compliance with all his multiple medicati ons. He denies headache, chest pain, shortness of breath or abdominal pain. Patient also stating that he would like to go home at this time. - Related Data Allergies/Adverse Reactions: No Known Allergies Allergy (Verified 10/27/19 20:05) Past Medical History - General Information source: Patient - Social History Smoking Status: Current Every Day Smoker Frequency of alcohol use: None Drug Abuse: Cocaine Family History: Reviewed & Not Pertinent - Past Medical History Cardiac Medical History: Reports: Hx Hypercholesterolemia, Hx Hypertension Pulmonary Medical History: Reports: Hx COPD Neurological Medical History: Reports: Hx Seizures Renal/ Medical History: Denies: Hx Peritoneal Dialysis Psychiatric Medical History: Reports: Hx Depression, Hx Schizophrenia - Immunizations Hx Diphtheria, Pertussis, Tetanus Vaccination: Yes Review of Systems - Review of Systems Constitutional: No symptoms reported EENT: No symptoms reported Cardiovascular: No symptoms reported Respiratory: No symptoms reported Gastrointestinal: No symptoms reported Genitourinary: No symptoms reported Male Genitourinary: No symptoms reported Musculoskeletal: No symptoms reported Skin: No symptoms reported Hematologic/Lymphatic: No symptoms reported Neurological/Psychological: No symptoms reported Physical Exam - Vital signs Vitals: Resp Pulse Ox 14 96 05/18/20 16:21 05/18/20 16:21 - General General appearance: Appears well, Alert In distress: None - HEENT Head: Normocephalic, Atraumatic Extraocular movements intact: Yes Pupils: PERRL - Respiratory Chest status: Nontender Breath sounds: Normal - Cardiovascular Rhythm: Regular Heart sounds: Normal auscultation - Abdominal Tenderness: Nontender - Extremities General upper extremity: Normal ROM General lower extremity: Normal ROM - Neurological Neuro grossly intact: Yes Cognition: Normal Orientation: AAOx4 Speech: Normal Cranial nerves: Normal Motor strength normal: LUE, RUE, LLE, RLE Sensory: Normal - Psychological Associated symptoms: Normal affect - Skin Skin Temperature: Warm Course - Re-evaluation Re-evalutation: 60-year-old male presents with EMS report of a fall with loss of consciousness at home, patient is denying that this happened. He is alert and oriented x4, he is currently denying complaints stating that he would like to go home. He is hemodynamically stable, no focal neuro deficits. He had a laboratory evaluation done prior to evaluation which show some mild hyponatremia, possible this could be a side effect of his seizure medications. His troponin is negative. EKG is similar to previous. Head CT is negative for acute process. Patient was given strict return precautions, stable time of discharge. - Vital Signs Vital signs: Temp Pulse Resp BP Pulse Ox 98.0 F 22 H 145/78 H 95 05/18/20 16:38 05/18/20 21:00 05/18/20 20:54 05/18/20 21:00 - Laboratory Results Result Diagrams: 05/18/20 18:00 05/18/20 18:00 Laboratory Results Interpreted: 05/18/20 05/18/20 05/18/20 18:00 18:00 20:15 RBC 3.16 L Hgb 10.6 L Hct 30.5 L MCH 33.5 H RDW 15.6 H Plt Count 95 L Sodium 124.6 L Chloride 94 L Anion Gap 4 L Calcium 8.3 L AST 73 H ALT 76 H Creatine Kinase 54 L Total Protein 5.3 L Albumin 2.8 L Urine Ketones TRACE H Urine Urobilinogen 4.0 H Critical Laboratory Results Reviewed: No Critical Results - Radiology Results Critical Radiology Results Reviewed: No Critical Results - EKG Interpretation by Me Additional EKG results interpreted by me: EKG is interpreted by me. Sinus rhythm, rate 58. Narrow QRS, QTC within normal limits. T wave inversions in 1 and aVL seen on previous EKG. No STEMI. Discharge - Discharge Clinical Impression: Fall from standing Disposition: HOME, SELF-CARE Additional Instructions: Please follow-up with your doctor to discuss refilling erectile dysfunction medication. Otherwise please continue all medications as prescribed. Return to the emergency department for any concerning worsening symptoms. Referrals: [facility] [Primary Care Provider] - Follow up as needed
[2020-05-18 21:05] VITALS: BP 145/78
--- NOTE | 2020-05-18 22:08 | EKG REPORT ---
SEVERITY:- ABNORMAL ECG - SINUS RHYTHM BORDERLINE LEFT AXIS DEVIATION ABNORMAL T, CONSIDER ISCHEMIA, LATERAL LEADS : Confirmed by: Fernanda Saucedo 18-May-2020 22:08:19
== END 2020-05-18 21:22 | disposition home or self-care (01) ==
LOC: ER 16:14
DX: Z76.0 Encounter for issue of repeat prescription (principal); R42 Dizziness and giddiness; R55 Syncope and collapse; Z91.81 History of falling; F17.200 Nicotine dependence, unspecified, uncomplicated; E78.00 Pure hypercholesterolemia, unspecified; I10 Essential (primary) hypertension
CPT/HCPCS: 36415; 70450; 80053; 81001; 82550; 82553; 84484; 85025; 93005; 93010; 99285

== ENCOUNTER 2020-05-26 05:49 | Inpatient (IN) | payer OTHER ==
[2020-05-26 06:17] LABS: ABSOLUTE LYMPHOCYTES (AUTO) 0.7 10^3/uL (0.5-4.7); ABSOLUTE MONOCYTES (AUTO) 0.7 10^3/uL (0.1-1.4); ABSOLUTE NEUT (AUTO) 6.2 10^3/uL (1.7-8.2); BASOPHILS % (AUTO) 0.3 % (0-2); HEMATOCRIT 32.5 % (37.9-51.0); HEMOGLOBIN 11.6 g/dL (13.5-17.0); LYMPHOCYTES % (AUTO) 8.8 % (13-45); MEAN CORPUSCULAR HGB CONC 35.6 g/dL (32.0-36.0); MEAN CORPUSCULAR VOLUME 95 fl (80-97); MONOCYTES % (AUTO) 9.1 % (3-13); PLATELET COUNT 140 10^3/uL (150-450); RED BLOOD COUNT 3.41 10^6/uL (4.35-5.55); RED CELL DISTRIBUTION WIDTH 15.2 % (11.5-14.0); SEGMENTED NEUTROPHILS % (AUTO) 81.8 % (42-78); TOTAL CELLS COUNTED % (AUTO) 100 %; WHITE BLOOD COUNT 7.6 10^3/uL (4.0-10.5)
[2020-05-26 06:31] LABS: ALBUMIN 3.1 g/dL (3.5-5.0); ALKALINE PHOSPHATASE 48 U/L (38-126); ANION GAP 7 (5-19); ASPARTATE AMINO TRANSFERASE 223 U/L (17-59); BILIRUBIN,DIRECT 0.6 mg/dL (0.0-0.4); BILIRUBIN,TOTAL 1.8 mg/dL (0.2-1.3); BLOOD UREA NITROGEN 31 mg/dL (7-20); CALCIUM 8.4 mg/dL (8.4-10.2); CARBON DIOXIDE 26 mmol/L (22-30); CHLORIDE 104 mmol/L (98-107); GLUCOSE 106 mg/dL (75-110); POTASSIUM 3.6 mmol/L (3.6-5.0)
[2020-05-26 06:42] LABS: CREATINE KINASE 2209 U/L (55-170); CREATINE KINASE MB 2.76 ng/mL (<4.55)
[2020-05-26 06:44] LABS: TROPONIN I 0.15 ng/mL
[2020-05-26] MEDS ORDERED: DEXTROSE 5%-LACTATED RINGERS 1,000 ML IV ONE (06:48)
[2020-05-26 06:59] LABS: INTERNATIONAL RATION (INR) 1.22; PROTHROMBIN TIME 15.6 SEC (11.4-15.4)
[2020-05-26 07:02] LABS: D-DIMER 1.18 ug/mL (0.00-0.50)
--- NOTE | 2020-05-26 07:02 | ER Document Report ---
Entered by MARKUS SHI SCRIBE 05/26/20 0647 Acting as scribe for:SUZE JJ MD ED General - General Chief Complaint: Passed Out Prior to Arrival Stated Complaint: WEAKNESS Time Seen by Provider: 05/26/20 06:34 Information source: Patient Notes: This 60-year-old male patient with schizoaffective and bipolar disorder presents to the emergency department today with complaints of nausea, vomiting, and diarrhea for a week. Patient reports that today he was up walking, took a few steps, and then passed out. Patient was seen here on 05/18/2020 with a similar complaint. He was rapid COVID tested in route to this facility today by EMS and that result was positive. TRAVEL OUTSIDE OF THE [place] IN LAST 30 DAYS: No - Related Data Allergies/Adverse Reactions: No Known Allergies Allergy (Verified 10/27/19 20:05) Home Medications: olanzapine, divaproex, benzotropine, fluoextine, multivitamin Past Medical History - General Information source: Patient - Social History Smoking Status: Current Every Day Smoker Cigarette use (# per day): Yes - 1 ppd Frequency of alcohol use: None Drug Abuse: None Family History: Reviewed & Not Pertinent - Past Medical History Cardiac Medical History: Reports: Hx Hypercholesterolemia, Hx Hypertension Pulmonary Medical History: Reports: Hx COPD Neurological Medical History: Reports: Hx Seizures Psychiatric Medical History: Reports: Hx Depression, Hx Schizophrenia Surgical Hx: Negative - Immunizations Hx Diphtheria, Pertussis, Tetanus Vaccination: Yes Review of Systems - Review of Systems Constitutional: No symptoms reported EENT: No symptoms reported Cardiovascular: See HPI, Syncope Respiratory: No symptoms reported Gastrointestinal: See HPI, Diarrhea, Nausea, Vomiting Genitourinary: No symptoms reported Male Genitourinary: No symptoms reported Musculoskeletal: No symptoms reported Skin: No symptoms reported Hematologic/Lymphatic: No symptoms reported Neurological/Psychological: No symptoms reported -: Yes All other systems reviewed and negative Physical Exam - Vital signs Vitals: Resp 11 L 05/26/20 05:48 - Notes Notes: Physical Exam: General: Alert, shaky when trying to sit up. HEENT: Normocephalic. Atraumatic. PERRL. Extraocular movements intact. Oropharynx clear. Dry mucous membranes. Neck: Supple. Non-tender. Respiratory: No respiratory distress. Clear and equal breath sounds bilaterally. Cardiovascular: Mild tachycardia, regular rhythm. Abdominal: Normal Inspection. Non-tender. No distension. Normal Bowel Sounds. Back: No gross abnormalities. Extremities: Moves all four extremities. Upper extremities: Normal inspection. Normal ROM. Lower extremities: Normal inspection. No edema. Normal ROM. Neurological: Normal cognition. AAOx4. Normal speech. Psychological: Normal affect. Normal Mood. Skin: Warm. Dry. Normal color. Course - Re-evaluation Re-evalutation: 05/26/20 09:30 The patient was seen here recently syncopal type episode and had some URI symptoms at that time by history. EMS tested him for Covid on the way to the hospital and he is positive. His serum ferritin is 727, his CRP is 88.4, his total CK is 2209, his troponin was 0.15 and a repeat 3 hours later is 0.15. He was seen here and December 2017 and had a negative Cardiolite stress test. Initially the patient had a trigeminal cardiac rhythm, after 1 L of IV fluid he is in a normal sinus rhythm and his blood pressures, from the 90s systolic to 112 systolic. CTA chest does not show pulmonary emboli, there are patchy peripheral alveolar and interstitial infiltrates in the right lung and lingula. - Vital Signs Vital signs: Temp Pulse Resp BP Pulse Ox 97.5 F 67 20 114/72 91 L 05/26/20 17:38 05/26/20 17:38 05/26/20 17:38 05/26/20 17:38 05/26/20 17:38 - Laboratory Results Result Diagrams: 05/26/20 06:02 05/26/20 06:02 Laboratory Results Interpreted: 05/26/20 05/26/20 05/26/20 06:02 06:02 06:02 RBC 3.41 L Hgb 11.6 L Hct 32.5 L MCH 34.0 H RDW 15.2 H Plt Count 140 L Lymph % (Auto) 8.8 L Seg Neutrophils % 81.8 H PT 15.6 H D-Dimer 1.18 H BUN 31 H Ferritin Total Bilirubin 1.8 H Direct Bilirubin 0.6 H AST 223 H ALT 60 H Creatine Kinase 2209 H C-Reactive Protein Total Protein 6.0 L Albumin 3.1 L Urine Protein Urine Urobilinogen 05/26/20 05/26/20 06:02 08:54 RBC Hgb Hct MCH RDW Plt Count Lymph % (Auto) Seg Neutrophils % PT D-Dimer BUN Ferritin 727.00 H Total Bilirubin Direct Bilirubin AST ALT Creatine Kinase C-Reactive Protein 88.4 H Total Protein Albumin Urine Protein 30 H Urine Urobilinogen 4.0 H Critical Laboratory Results Reviewed: Yes Attending or Supervising Physician who Reviewed Labs: SUZE JJ - Elevated troponin, CK, ferritin, CRP - Radiology Results Critical Radiology Results Reviewed: Yes Attending or Supervising Physician who Reviewed Radiology: SUZE JJ - Right sided infiltrates consistent with Covid pneumonia - EKG Interpretation by Me EKG shows normal: Sinus rhythm, [place], Intervals, QRS Complexes. abnormal: ST-T Waves - Borderline anterolateral T abnormalities Rate: Normal - 85 Rhythm: Other - Ventricular trigeminy [place]/QRS: Left axis deviation P Waves: LAE When compared to previous EKG there are: Changes noted - Consults Dr. Cabrera Time consulted: 09:18 Consulted provider: will come to ER - Initially had requested I call the core placer to confirm that the patient does not need transfer. I discussed case with Dr. Saucedo, he stated the patient does not need transfer, but he did request that I order an echocardiogram. Critical Care Note - Critical Care Note Total time excluding time spent on procedures (mins): 35 Comments: At least 35 minutes spent evaluating patient reviewing current relevant previous visits and lab work and radiological studies. Reevaluation after interventions. Phone calls with hospitalist service to get the patient admitted to the hospital. Discharge - Discharge Clinical Impression: Pneumonia due to 2019-nCoV, Rhabdomyolysis due to COVID-19, Elevated troponin I level, Dehydration after exertion, Cocaine abuse Hypotension Qualifiers: Hypotension type: hypotension due to hypovolemia Qualified Code(s): I95.89 - Other hypotension Condition: Fair Disposition: ADMITTED INPATIENT Admitting Provider: Deborah (Hospitalist) I personally performed the services described in the documentation, reviewed and edited the documentation which was dictated to the scribe in my presence, and it accurately records my words and actions.
[2020-05-26 07:08] LABS: C-REACTIVE PROTEIN 88.4 mg/L (<10.0)
--- NOTE | 2020-05-26 08:29 | RADIOLOGY REPORT (SQ) ---
EXAM DESCRIPTION: CHEST SINGLE VIEW IMAGES COMPLETED DATE/TIME: 05/26/2020 7:15 am REASON FOR STUDY: Covid+, N,V,D SOB COMPARISON: None. EXAM PARAMETERS: NUMBER OF VIEWS: Two views TECHNIQUE: 2 frontal radiographs of the chest acquired. RADIATION DOSE: NA LIMITATIONS: None. FINDINGS: LUNGS AND PLEURA: Multifocal airspace opacities involving predominantly the right upper lo be and right middle lobe. No pleural effusion. No pneumothorax. MEDIASTINUM AND HILAR STRUCTURES: No masses. Contour normal. HEART AND VASCULAR STRUCTURES: Heart normal in size. Normal vasculature. BONES: There appear to be healed fracture deformities of the left lower ribs. HARDWARE: None in the chest. OTHER: Incidental note is made of colonic interposition. IMPRESSION: Multifocal pneumonia consistent with given history of COVID positive testing and symptom atology. TECHNICAL DOCUMENTATION: JOB ID: [id number] 2010 [employer]- All Rights Reserved Reading location - IP/workstation name: [email or web address]
--- NOTE | 2020-05-26 08:47 | RADIOLOGY REPORT (SQ) ---
EXAM DESCRIPTION: CTA CHEST IMAGES COMPLETED DATE/TIME: 05/26/2020 8:15 am REASON FOR STUDY: Covid+, elevated D-dimer, SOB, tachycardia COMPARISON: Chest film 05/26/2020, 11/24/2019 TECHNIQUE: CT scan of the chest performed using helical scanning technique with dynamic intravenous contrast injection. Images reviewed with lung, soft tissue and bone windows. Reconstructed coronal and sagittal MPR images reviewed. Additional 3 dimensional post-processing performed to develop Maximal Intensity Projection images (OR P). All images stored on PACS. All CT scanners at this facility use dose modulation, iterative reconstruction, and/or weight based d osing when appropriate to reduce radiation dose to as low as reasonably achievable (ALARA). [facility]: Dose Right [facility]: CareDose [facility]: Dose Right [facility]: Teradose 4D [facility]: [employer] CONTRAST TYPE AND DOSE: contrast/concentration: Isovue 350.00 mmol/ml; Total Contrast Delivered: 75. 0 ml; Total Saline Delivered: 80.0 ml Contrast bolus adequate for pulmonary arteries and aorta. RENAL FUNCTION: Creatinine 1.2 RADIATION DOSE: CT Rad equipment meets quality standard of care and radiation dose reduction techniq ues were employed. CTDIvol: 6.6 - 14.3 mGy. DLP: 555 mGy-cm. . LIMITATIONS: None. FINDINGS: LUNGS AND PLEURA: Patchy peripheral alveolar and interstitial infiltrates are present in t he right lung, and lingula. No pleural effusion. No pneumothorax. Changes of obstructive lung disease are present in the right upper lobe. AORTA AND GREAT VESSELS: Ascending thoracic aorta 4 cm in diameter. No dissection. Normal caliber t horacic aorta at the arch and descending thoracic aorta. HEART: No pericardial effusion. No significant coronary artery calcifications. PULMONARY ARTERIES: No emboli visualized in the main pulmonary arteries or the segmental branches. HILAR AND MEDIASTINAL STRUCTURES: Mild mediastinal adenopathy. Large retrocardiac hiatal hernia HARDWARE: None in the chest. UPPER ABDOMEN: No significant findings. Limited exam. THYROID AND OTHER SOFT TISSUES: No masses. No adenopathy. BONES: No acute or significant finding. 3D MIPS: Confirm above findings. OTHER: No other significant finding. IMPRESSION: Patchy bilateral alveolar and interstitial infiltrates right greater than left. Changes of obstructive lung disease. No CT angio evidence of thoracic aortic dissection or acute pulmonary emboli. COMMENT: Quality ID # [id number]: Final reports with documentation of one or more dose reduction techniques (e.g., Automated exposure control, adjustment of the mA and/or kV according to patient size, use of iterative reconstruction technique) TECHNICAL DOCUMENTATION: JOB ID: [id number] 2010 [employer]- All Rights Reserved Reading location - IP/workstation name: [id number]
[2020-05-26 09:32] LABS: APPEARANCE,URINE CLEAR; BILIRUBIN,URINE NEGATIVE (NEGATIVE); COLOR,URINE AMBER; GLUCOSE, URINE NEGATIVE (NEGATIVE); KETONES,URINE NEGATIVE (NEGATIVE); LEUKOCYTE ESTERASE,URINE NEGATIVE (NEGATIVE); NITRITE,URINE NEGATIVE (NEGATIVE); PROTEIN,URINE 30 mg/dL (NEGATIVE); URINE SPECIFIC GRAVITY 1.059
[2020-05-26 09:38] LABS: URINE AMPHETAMINES SCREEN NEGATIVE; URINE BARBITURATES SCREEN NEGATIVE; URINE BENZODIAZEPINES SCREEN NEGATIVE; URINE MARIJUANA (THC) SCREEN NEGATIVE; URINE METHADONE SCREEN NEGATIVE; URINE PHENCYCLIDINE SCREEN NEGATIVE
[2020-05-26 09:40] LABS: URINE COCAINE SCREEN UNCONFIRMED POSITIVE
[2020-05-26] MEDS ORDERED: MAGNESIUM HYDROXIDE SUSP 30 ML UDCUP PO PRN (11:27)
[2020-05-26] MEDS ORDERED: ONDANSETRON HCL INJ/PF 4 MG/2 ML SDV IV PRN (11:27)
[2020-05-26] MEDS ORDERED: ONDANSETRON 4 MG TAB.RAPDIS PO PRN (11:27)
[2020-05-26] MEDS ORDERED: IPRATROPIUM/ALBUTEROL 0.5-2.5 MG/3 ML AMPUL NEB PRN (11:27)
[2020-05-26] MEDS ORDERED: OXYCODONE-ACETAMINOPHEN 5-325 MG TABLET PO PRN (11:27)
[2020-05-26] MEDS ORDERED: ACETAMINOPHEN 325 MG TABLET PO PRN (11:27)
[2020-05-26] MEDS ORDERED: PROMETHAZINE HCL 25 MG TABLET PO PRN (11:27)
[2020-05-26] MEDS ORDERED: TEMAZEPAM 7.5 MG CAPSULE PO PRN (11:27)
[2020-05-26] MEDS ORDERED: PROMETHAZINE HCL INJ 25 MG/1 ML VIAL IV PRN (11:27)
[2020-05-26] MEDS ORDERED: HYDRALAZINE HCL 10 MG TABLET PO PRN (11:33)
--- NOTE | 2020-05-26 11:40 | EKG REPORT ---
SEVERITY:- ABNORMAL ECG - SINUS TACHYCARDIA VENTRICULAR TRIGEMINY PROBABLE LEFT ATRIAL ABNORMALITY BORDERLINE LEFT AXIS DEVIATION BORDERLINE T ABNORMALITIES, ANT-LAT LEADS : Confirmed by: Gisella Medina MD 26-May-2020 11:39:27
[2020-05-26] MEDS ORDERED: AZITHROMYCIN 250 MG TABLET PO ONE (12:30)
[2020-05-26] MEDS: ASPIRIN 81 MG TABLET, ENT COATED PO SCH (12:34)
[2020-05-26] MEDS: DEXAMETHASONE SOD PHOS INJ 10 MG/1 ML VIAL IV SCH (12:34)
[2020-05-26] MEDS: IVERMECTIN 3 MG TABLET PO SCH (12:34)
[2020-05-26] MEDS: ASCORBIC ACID 500 MG TABLET PO SCH ×2 (12:35→18:41)
[2020-05-26] MEDS: CHOLECALCIFEROL (D3) 1,000 UNIT (25 MCG) TABLET PO SCH (12:35)
[2020-05-26] MEDS: ZINC SULFATE 220 MG CAPSULE PO SCH (12:35)
[2020-05-26 13:27] LABS: INTERNATIONAL RATION (INR) 1.18; PROTHROMBIN TIME 15.2 SEC (11.4-15.4)
[2020-05-26 13:28] LABS: FIBRINOGEN 470 mg/dL (209-497); PARTIAL THROMBOPLASTIN TIME 33.6 SEC (23.5-35.8)
[2020-05-26 13:30] LABS: D-DIMER 0.95 ug/mL (0.00-0.50)
--- NOTE | 2020-05-26 13:58 | PDOC CONSULTATION ---
Consultation Consult Date: 05/26/20 Attending physician:: VIVI OSBORN Provider Consulted: PRINCESS KRAFT Consult reason:: Positive troponin I History of Present Illness Admission Date/PCP: 05/26/20 12:[facility] Patient complains of: Generalized weakness, nausea vomiting diarrhea History of Present Illness: EZIO SAMANIEGO is a 60 year old male patient with schizoaffective and bipolar disorder presents to the emergency department today with complaints of nausea, vomiting, and diarrhea for a week. Patient reports that today he was up walking, took a few steps, and then passed out. Patient was seen here on 05/18/2020 with a similar complaint. He was rapid COVID tested in route to this facility today by EMS and that result was positive. This history obtained by the ER physician was reviewed. Patient on questioning denied any chest pains or any shortness of breath. Patient had lab work performed which showed positive troponin I, elevated total CK and on day heart rhythm monitor was also noted to have some transient ventricular trigeminy. Patient was subsequently given 1 L of normal saline bolus following which his trigeminy resolved. Patient was admitted. I have been asked to evaluate patient because of his positive troponin I. A 2D echo has been ordered and is pending. Patient is a poor historian and has schizoaffective disorder. Past Medical History Cardiac Medical History: Reports: Hyperlipidema, Hypertension Pulmonary Medical History: Reports: Chronic Obstructive Pulmonary Disease (COPD) Neurological Medical History: Reports: Seizures Psychiatric Medical History: Reports: Depression, Schizoaffective Disorder Social History Information Source: Patient Smoking Status: Current Every Day Smoker Frequency of Alcohol Use: None Hx Recreational Drug Use: Yes Drugs: Cocaine, Marijuana Hx Prescription Drug Abuse: No Family History Family History: Reviewed & Not Pertinent Parental Family History Reviewed: Yes Children Family History Reviewed: Yes Sibling(s) Family History Reviewed.: Yes Medication/Allergy Home Medications: Benztropine Mesylate [Cogentin 1 mg Tablet] 2 mg PO BID 05/26/20 Divalproex Sodium [Depakote ER] 1,000 mg PO QHS 05/26/20 Fluoxetine HCl 20 mg PO DAILY 05/26/20 Multivitamin 1 each PO DAILY 05/26/20 Olanzapine 20 mg PO QHS 05/26/20 Allergies/Adverse Reactions: No Known Allergies Allergy (Verified 10/27/19 20:05) Review of Systems Constitutional: ABSENT: chills, fever(s), headache(s), weight gain, weight loss Eyes: ABSENT: visual disturbances Ears: ABSENT: hearing changes Cardiovascular: PRESENT: dyspnea on exertion. ABSENT: chest pain, edema, orthropnea, palpitations Respiratory: ABSENT: cough, hemoptysis Gastrointestinal: PRESENT: diarrhea, nausea, vomiting. ABSENT: abdominal pain, constipation, hematemesis, hematochezia Genitourinary: ABSENT: dysuria, hematuria Musculoskeletal: ABSENT: joint swelling Integumentary: ABSENT: rash, wounds Neurological: ABSENT: abnormal gait, abnormal speech, confusion, dizziness, focal weakness, syncope Psychiatric: PRESENT: as per HPI, other - Schizoaffective disorder. ABSENT: anxiety, depression, homidical ideation, suicidal ideation Endocrine: ABSENT: cold intolerance, heat intolerance, polydipsia, polyuria Hematologic/Lymphatic: ABSENT: easy bleeding, easy bruising Physical Exam Vital Signs: Temp Pulse Resp BP Pulse Ox 99.5 F 25 H 107/73 93 05/26/20 05:53 05/26/20 12:01 05/26/20 12:01 05/26/20 12:01 Intake & Output 05/25/20 05/26/20 05/27/20 06:59 06:59 06:59 Intake Total 1000 Balance 1000 Weight 79.1 kg General appearance: PRESENT: no acute distress, well-developed, well-nourished Head exam: PRESENT: atraumatic, normocephalic Eye exam: PRESENT: conjunctiva pink, EOMI, PERRLA. ABSENT: scleral icterus Ear exam: PRESENT: normal external ear exam Mouth exam: PRESENT: moist, tongue midline Neck exam: ABSENT: carotid bruit, JVD, lymphadenopathy, thyromegaly Respiratory exam: PRESENT: clear to auscultation hal. ABSENT: rales, rhonchi, wheezes Cardiovascular exam: PRESENT: RRR, +S1, +S2, systolic murmur. ABSENT: diastolic murmur, rubs Pulses: PRESENT: normal dorsalis pedis pul Vascular exam: PRESENT: normal capillary refill GI/Abdominal exam: PRESENT: normal bowel sounds, soft. ABSENT: distended, guarding, mass, organolmegaly, rebound, tenderness Rectal exam: PRESENT: deferred Extremities exam: PRESENT: full ROM. ABSENT: calf tenderness, clubbing, pedal edema Neurological exam: PRESENT: alert, awake, oriented to person, oriented to place, oriented to time, oriented to situation, CN II-XII grossly intact. ABSENT: motor sensory deficit Psychiatric exam: PRESENT: appropriate affect, normal mood. ABSENT: homicidal ideation, suicidal ideation Skin exam: PRESENT: dry, intact, warm. ABSENT: cyanosis, rash Results Laboratory Results: 05/26/20 06:02 05/26/20 06:02 05/26/20 05/26/20 05/26/20 06:02 06:02 06:02 WBC 7.6 RBC 3.41 L Hgb 11.6 L Hct 32.5 L MCV 95 MCH 34.0 H MCHC 35.6 RDW 15.2 H Plt Count 140 L Seg Neutrophils % 81.8 H Sodium 137.3 Potassium 3.6 Chloride 104 Carbon Dioxide 26 Anion Gap 7 BUN 31 H Creatinine 1.19 Est GFR ( Amer) > 60 Glucose 106 Calcium 8.4 Magnesium 1.8 Ferritin 727.00 H Total Bilirubin 1.8 H AST 223 H Alkaline Phosphatase 48 C-Reactive Protein 88.4 H Total Protein 6.0 L Albumin 3.1 L Urine Color Urine Appearance Urine pH Ur Specific [place] Urine Protein Urine Glucose (UA) Urine Ketones Urine Blood Urine Nitrite Ur Leukocyte Esterase Urine WBC (Auto) Urine RBC (Auto) Blood Type 05/26/20 05/26/20 08:54 12:55 WBC RBC Hgb Hct MCV MCH MCHC RDW Plt Count Seg Neutrophils % Sodium Potassium Chloride Carbon Dioxide Anion Gap BUN Creatinine Est GFR ( Amer) Glucose Calcium Magnesium Ferritin Total Bilirubin AST Alkaline Phosphatase C-Reactive Protein Total Protein Albumin Urine Color MARISELA Urine Appearance CLEAR Urine pH 6.0 Ur Specific [place] 1.059 Urine Protein 30 H Urine Glucose (UA) NEGATIVE Urine Ketones NEGATIVE Urine Blood NEGATIVE Urine Nitrite NEGATIVE Ur Leukocyte Esterase NEGATIVE Urine WBC (Auto) 1 Urine RBC (Auto) 2 Blood Type AB POSITIVE 05/26/20 05/26/20 05/26/20 06:02 06:02 07:50 Creatine Kinase 2209 H CK-MB (CK-2) 2.76 Troponin I 0.150 0.150 EKG Comments: Sinus rhythm with frequent ventricular ectopy. No acute ST segment changes noted. Impressions: Chest X-Ray 05/26/20 06:50 IMPRESSION: Multifocal pneumonia consistent with given history of COVID positive testing and symptomatology. Chest/Abdomen CTA 05/26/20 07:17 IMPRESSION: Patchy bilateral alveolar and interstitial infiltrates right greater than left. Changes of obstructive lung disease. No CT angio evidence of thoracic aortic dissection or acute pulmonary emboli. Assessment & Plan - Diagnosis (1) Elevated troponin I level Is this a current diagnosis for this admission?: Yes (2) Hypotension Qualifiers: Hypotension type: hypotension due to hypovolemia Qualified Code(s): I95.89 - Other hypotension; E86.1 - Hypovolemia Is this a current diagnosis for this admission?: Yes (3) Rhabdomyolysis due to COVID-19 Is this a current diagnosis for this admission?: Yes (4) History of schizophrenia Is this a current diagnosis for this admission?: Yes (5) Hyperlipidemia Qualifiers: Hyperlipidemia type: unspecified Qualified Code(s): E78.5 - Hyperlipidemia, unspecified Is this a current diagnosis for this admission?: Yes (6) Hypertension Qualifiers: Hypertension type: unspecified Qualified Code(s): I10 - Essential (primary) hypertension Is this a current diagnosis for this admission?: Yes (7) Tobacco abuse Is this a current diagnosis for this admission?: Yes (8) Cocaine abuse Is this a current diagnosis for this admission?: Yes - Notes Notes: ELEVATED TROPONIN I: Most likely related to hypotension, pneumonia etc. EKG negative for any significant ST segment changes and patient denies any chest pain. At this point continue to monitor enzyme level. Continue medical management. Patient does have coronary calcification but mild in the LAD distribution on CT chest. 2D echo ordered For risk stratification. May consider doing a stress test prior to discharge or as out patient. HYPERTENSION: On presentation patient was relatively hypotensive. Restart home antihypertensive when feasible. HYPOTENSION: I was told by the ER that patient was hypotensive at some point in the ER and he responded to IV fluids. Possibly related to nausea vomiting diarrhea. Possible sepsis secondary to pneumonia. RHABDOMYOLYSIS: Continue with IV fluid therapy. Tobacco abuse: Patient has been advised against it. Cocaine abuse: Patient has been advised against it. COVID-19 positive test (U07.1, COVID-19) with Acute Pneumonia (J12.89, Other viral pneumonia) (If respiratory failure or sepsis present, add as separate assessment): Leave management plans to hospitalist as they now have some expertise managing it. Continue to observe for any rapid decompensation. - Time Time Spent: 30 to 50 Minutes Medications reviewed and adjusted accordingly: Yes
[2020-05-26] MEDS ORDERED: DEXTROSE 5%-NORMAL SALINE 1,000 ML IV PRN (18:30)
--- NOTE | 2020-05-26 18:30 | PDOC H&P ---
History of Present Illness Admission Date/PCP: 05/26/20 12:04 [facility] History of Present Illness: EZIO SAMANIEGO is a 60 year old male past medical history of schizophrenia, bipolar depression, cocaine abuse, presenting to ED complaining of nausea, vomiting, diarrhea x1 week. He is stating that prior to dmission he passed out when he was walking, EMS called called, and route to the ED was tested for COVID-19 which was negative. In ED he was noted to have elevated liver enzymes, ferritin, D-dimer, C-reactive protein, troponins, repeat COVID-19 serology and interstitial infiltrates right greater than left. No PE. Patient denies any fever, chills, chest pain, shortness of breath, headache, vision changes, constipation or any urinary symptoms. Patient complaining of being depressed and would like his home meds to be restarted. Denies any suicidal or homicidal ideation. Past Medical History Cardiac Medical History: Reports: Hyperlipidema, Hypertension Pulmonary Medical History: Reports: Chronic Obstructive Pulmonary Disease (COPD) Neurological Medical History: Reports: Seizures Psychiatric Medical History: Reports: Depression, Schizoaffective Disorder Social History Smoking Status: Current Every Day Smoker Frequency of Alcohol Use: None Hx Recreational Drug Use: Yes Drugs: Cocaine, Marijuana Hx Prescription Drug Abuse: No Family History Family History: Reviewed & Not Pertinent Parental Family History Reviewed: Yes Children Family History Reviewed: Yes Sibling(s) Family History Reviewed.: Yes Medication/Allergy Home Medications: Benztropine Mesylate [Cogentin 1 mg Tablet] 2 mg PO BID 05/26/20 Divalproex Sodium [Depakote ER] 1,000 mg PO QHS 05/26/20 Fluoxetine HCl 20 mg PO DAILY 05/26/20 Multivitamin 1 each PO DAILY 05/26/20 Olanzapine 20 mg PO QHS 05/26/20 Allergies/Adverse Reactions: No Known Allergies Allergy (Verified 10/27/19 20:05) Physical Exam Vital Signs: Temp Pulse Resp BP Pulse Ox 97.5 F 67 20 114/72 91 L 05/26/20 17:38 05/26/20 17:38 05/26/20 17:38 05/26/20 17:38 05/26/20 17:38 Intake & Output 05/25/20 05/26/20 05/27/20 06:59 06:59 06:59 Intake Total 1684 Output Total 225 Balance 1459 Weight 79.1 kg 76.9 kg General appearance: PRESENT: no acute distress, well-developed, well-nourished Head exam: PRESENT: atraumatic, normocephalic Respiratory exam: PRESENT: clear to auscultation hal. ABSENT: rales, rhonchi, wheezes Cardiovascular exam: PRESENT: RRR. ABSENT: diastolic murmur, rubs, systolic murmur GI/Abdominal exam: PRESENT: normal bowel sounds, soft. ABSENT: distended, guarding, mass, organolmegaly, rebound, tenderness Extremities exam: PRESENT: full ROM. ABSENT: calf tenderness, clubbing, pedal edema Neurological exam: PRESENT: alert, awake, oriented to person, oriented to place, CN II-XII grossly intact. ABSENT: motor sensory deficit Psychiatric exam: PRESENT: anxious, depressed Results Laboratory Results: 05/26/20 06:02 05/26/20 06:02 05/26/20 05/26/20 05/26/20 06:02 06:02 06:02 WBC 7.6 RBC 3.41 L Hgb 11.6 L Hct 32.5 L MCV 95 MCH 34.0 H MCHC 35.6 RDW 15.2 H Plt Count 140 L Seg Neutrophils % 81.8 H Sodium 137.3 Potassium 3.6 Chloride 104 Carbon Dioxide 26 Anion Gap 7 BUN 31 H Creatinine 1.19 Est GFR ( Amer) > 60 Glucose 106 Calcium 8.4 Magnesium 1.8 Ferritin 727.00 H Total Bilirubin 1.8 H AST 223 H Alkaline Phosphatase 48 C-Reactive Protein 88.4 H Total Protein 6.0 L Albumin 3.1 L Urine Color Urine Appearance Urine pH Ur Specific [place] Urine Protein Urine Glucose (UA) Urine Ketones Urine Blood Urine Nitrite Ur Leukocyte Esterase Urine WBC (Auto) Urine RBC (Auto) Blood Type 05/26/20 05/26/20 08:54 12:55 WBC RBC Hgb Hct MCV MCH MCHC RDW Plt Count Seg Neutrophils % Sodium Potassium Chloride Carbon Dioxide Anion Gap BUN Creatinine Est GFR ( Amer) Glucose Calcium Magnesium Ferritin Total Bilirubin AST Alkaline Phosphatase C-Reactive Protein Total Protein Albumin Urine Color MARISELA Urine Appearance CLEAR Urine pH 6.0 Ur Specific [place] 1.059 Urine Protein 30 H Urine Glucose (UA) NEGATIVE Urine Ketones NEGATIVE Urine Blood NEGATIVE Urine Nitrite NEGATIVE Ur Leukocyte Esterase NEGATIVE Urine WBC (Auto) 1 Urine RBC (Auto) 2 Blood Type AB POSITIVE 05/26/20 05/26/20 05/26/20 06:02 06:02 07:50 Creatine Kinase 2209 H CK-MB (CK-2) 2.76 Troponin I 0.150 0.150 05/26/20 15:50 Creatine Kinase CK-MB (CK-2) Troponin I 0.101 Impressions: Chest X-Ray 05/26/20 06:50 IMPRESSION: Multifocal pneumonia consistent with given history of COVID positive testing and symptomatology. Chest/Abdomen CTA 05/26/20 07:17 IMPRESSION: Patchy bilateral alveolar and interstitial infiltrates right greater than left. Changes of obstructive lung disease. No CT angio evidence of thoracic aortic dissection or acute pulmonary emboli. Assessment and Plan - Diagnosis (1) Pneumonia due to COVID-19 virus Is this a current diagnosis for this admission?: Yes Plan: Supplemental oxygen, steroids, empiric IV antibiotics, ivermectin, vitamin D, vitamin C, zinc, DuoNebs, pulmonary toileting. (2) Cocaine abuse Is this a current diagnosis for this admission?: Yes Plan: UA positive for cocaine. Advised on abstinence. Monitor for withdrawal. (3) Elevated troponin I level Is this a current diagnosis for this admission?: Yes Plan: Denies any chest pain. UA positive for cocaine. Likely related to cocaine abuse. Troponins trending down. Antiplatelets, statins. Cardiology on board, no intervention planned at point. (4) History of schizophrenia Is this a current diagnosis for this admission?: Yes Plan: Resume home meds. (5) Bipolar depression Is this a current diagnosis for this admission?: Yes Plan: Denies any suicidal or homicidal ideation. Resume home meds. Outpatient PCP and psychiatry follow-up. - Time Time Spent with patient: 35 or more minutes Anticipated Discharge Disposition: Home, Self Care Anticipated Discharge Timeframe: within 72 hours
[2020-05-26] MEDS: DOCUSATE SODIUM 100 MG CAPSULE PO SCH (18:40)
[2020-05-26] MEDS: BENZTROPINE MESYLATE 1 MG TABLET PO SCH (18:41)
[2020-05-26] MEDS ORDERED: FLUOXETINE HCL 20 MG CAPSULE PO ONE (18:45)
[2020-05-26] MEDS ORDERED: MULTIVITAMIN TABLET PO SCH (18:45)
[2020-05-26] MEDS: DIVALPROEX SODIUM 500 MG TAB.SR.24H PO SCH (21:31)
[2020-05-26] MEDS: ENOXAPARIN SODIUM INJ 80 MG/0.8 ML DISP.SYRIN SUBCUT SCH (21:31)
[2020-05-26] MEDS: FAMOTIDINE 20 MG TABLET PO SCH (21:31)
[2020-05-26] MEDS: OLANZAPINE 5 MG TABLET PO SCH (21:31)
[2020-05-26] MEDS: ATORVASTATIN CALCIUM 40 MG TABLET PO SCH (21:32)
[2020-05-27] MEDS ORDERED: DEXTROSE 5%-NORMAL SALINE 1,000 ML IV PRN ×2 (04:07→04:08)
[2020-05-27 04:14] LABS: ABSOLUTE LYMPHOCYTES (AUTO) 0.9 10^3/uL (0.5-4.7); ABSOLUTE MONOCYTES (AUTO) 0.3 10^3/uL (0.1-1.4); BASOPHILS % (AUTO) 0.2 % (0-2); HEMATOCRIT 29.8 % (37.9-51.0); HEMOGLOBIN 10.5 g/dL (13.5-17.0); LYMPHOCYTES % (AUTO) 20.4 % (13-45); MEAN CORPUSCULAR HEMOGLOBIN 33.9 pg (27.0-33.4); MEAN CORPUSCULAR HGB CONC 35.3 g/dL (32.0-36.0); MEAN CORPUSCULAR VOLUME 96 fl (80-97); MONOCYTES % (AUTO) 7.8 % (3-13); PLATELET COUNT 123 10^3/uL (150-450); RED CELL DISTRIBUTION WIDTH 15.4 % (11.5-14.0); SEGMENTED NEUTROPHILS % (AUTO) 71.6 % (42-78); TOTAL CELLS COUNTED % (AUTO) 100 %; WHITE BLOOD COUNT 4.3 10^3/uL (4.0-10.5)
[2020-05-27] MEDS ORDERED: CEFTRIAXONE 1 GM/D5W RTU 1 GM/50 ML RTUPB IV ONE ×2 (04:28→05:00)
[2020-05-27 04:46] LABS: ALBUMIN 2.7 g/dL (3.5-5.0); ALKALINE PHOSPHATASE 35 U/L (38-126); ASPARTATE AMINO TRANSFERASE 128 U/L (17-59); BILIRUBIN,DIRECT 0.6 mg/dL (0.0-0.4); BILIRUBIN,TOTAL 1.4 mg/dL (0.2-1.3); BLOOD UREA NITROGEN 29 mg/dL (7-20); C-REACTIVE PROTEIN 82.4 mg/L (<10.0); CALCIUM 8.2 mg/dL (8.4-10.2); CREATINE KINASE 596 U/L (55-170); GLUCOSE 181 mg/dL (75-110); POTASSIUM 3.7 mmol/L (3.6-5.0); TOTAL PROTEIN 5.5 g/dL (6.3-8.2)
[2020-05-27 04:49] LABS: CARBON DIOXIDE 26 mmol/L (22-30); CHLORIDE 108 mmol/L (98-107)
[2020-05-27 04:55] LABS: ANION GAP 5 (5-19)
[2020-05-27] MEDS ORDERED: NORMAL SALINE 1000 ML 1,000 ML IV ONE (05:00)
[2020-05-27] MEDS: DEXTROSE 5%-NORMAL SALINE 1,000 ML IV PRN ×2 (06:06→17:17)
[2020-05-27] MEDS: FAMOTIDINE 20 MG TABLET PO SCH ×2 (10:04→21:23)
[2020-05-27] MEDS: BENZTROPINE MESYLATE 1 MG TABLET PO SCH ×2 (10:04→17:12)
[2020-05-27] MEDS: FLUOXETINE HCL 20 MG CAPSULE PO SCH (10:05)
[2020-05-27] MEDS: ASCORBIC ACID 500 MG TABLET PO SCH ×2 (10:05→17:12)
[2020-05-27] MEDS: MULTIVITAMIN TABLET PO SCH (10:05)
[2020-05-27] MEDS: DOCUSATE SODIUM 100 MG CAPSULE PO SCH ×2 (10:05→17:12)
[2020-05-27] MEDS: ZINC SULFATE 220 MG CAPSULE PO SCH (10:05)
[2020-05-27] MEDS: CHOLECALCIFEROL (D3) 1,000 UNIT (25 MCG) TABLET PO SCH (10:06)
[2020-05-27] MEDS: AZITHROMYCIN 250 MG TABLET PO SCH (10:06)
[2020-05-27] MEDS: DEXAMETHASONE SOD PHOS INJ 10 MG/1 ML VIAL IV SCH (10:07)
[2020-05-27] MEDS: ASPIRIN 81 MG TABLET, ENT COATED PO SCH (10:07)
[2020-05-27] MEDS: ENOXAPARIN SODIUM INJ 80 MG/0.8 ML DISP.SYRIN SUBCUT SCH ×2 (10:08→21:22)
--- NOTE | 2020-05-27 12:21 | PDOC PROGRESS REPORT ---
Subjective Date:: 05/27/20 Subjective:: Patient seems to be doing better with gradual improvement. Nurses informed me t hat patient had a episode of hypothermia, hypotension, bradycardia last night. However this morning he is much improved. Pt is denying any chest arm or neck discomfort. Patient denying any PND, ort hopnea. Patient denied any sustained palpitations, dizziness, syncope, near syncope. Patient denying any fever chills. Patient denying any other significant discomfort. Patient is maintaining sinus rhythm. Review of systems: Rest review of systems negative. Medications: Medications have been reviewed. Reason For Visit: COVID PNEUMONIA, ELEVATED TROPS Physical Exam Vital Signs: Temp Pulse Resp BP Pulse Ox 97.5 F 61 22 H 113/74 95 05/27/20 08:23 05/27/20 08:20 05/27/20 08:20 05/27/20 08:20 05/27/20 08:20 Intake & Output 05/26/20 05/27/20 05/28/20 06:59 06:59 06:59 Intake Total 4012 Output Total 225 Balance 3787 Weight 79.1 kg 79.3 kg Exam: GENERAL: well-nourished and in no acute distress. Alert and oriented x3 HEAD: Atraumatic, normocephalic. EYES: DIONNE, sclera anicteric, conjunctiva are normal. ENT: Moist mucous membranes. No oral ulcerations or bleeding gums noted. No obvious ear, nose or throat abnormalities noted. NECK: supple without lymphadenopathy. Trachea is central. No cervical or axillary lymphadenopathy noted. Carotids are 2+, JVD WNL LUNGS: Bibasilar fine crackles with few bilateral wheezes rales or rhonchi noted. No significant dullness noted on percussion. CHEST: Palpation of the chest wall shows no significant chest wall tenderness. 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 ABDOMEN: Soft, no significant tenderness appreciated, normoactive bowel sounds. No guarding, no rebound. No rigidity noted . No masses appreciated. EXTREMITIES: Pedal pulses are 1-2+, no calf tenderness noted. No clubbing or cyanosis. negative pedal edema noted NEUROLOGICAL: Focused neurological exam showed no significant neurologic defic it. Normal speech, no focal weakness appreciated. PSYCH: Normal mood, normal affect. Judgment and insight within normal limits. SKIN: No significant ecchymosis, skin is noted to be warm. MUSCULOSKELETAL EXAM: No significant acute joint swelling noted. Results Laboratory Results: 05/27/20 04:01 05/27/20 04:01 05/26/20 05/27/20 05/27/20 12:55 04:01 04:01 WBC 4.3 RBC 3.10 L Hgb 10.5 L Hct 29.8 L MCV 96 MCH 33.9 H MCHC 35.3 RDW 15.4 H Plt Count 123 L Seg Neutrophils % 71.6 Sodium 138.5 Potassium 3.7 Chloride 108 H Carbon Dioxide 26 Anion Gap 5 BUN 29 H Creatinine 0.83 Est GFR ( Amer) > 60 Glucose 181 H Lactic Acid Calcium 8.2 L Ferritin 729.00 H Total Bilirubin 1.4 H AST 128 H Alkaline Phosphatase 35 L C-Reactive Protein 82.4 H Total Protein 5.5 L Albumin 2.7 L Blood Type AB POSITIVE 05/27/20 04:01 WBC RBC Hgb Hct MCV MCH MCHC RDW Plt Count Seg Neutrophils % Sodium Potassium Chloride Carbon Dioxide Anion Gap BUN Creatinine Est GFR ( Amer) Glucose Lactic Acid 1.1 Calcium Ferritin Total Bilirubin AST Alkaline Phosphatase C-Reactive Protein Total Protein Albumin Blood Type 05/26/20 05/26/20 05/26/20 06:02 06:02 07:50 Creatine Kinase 2209 H CK-MB (CK-2) 2.76 Troponin I 0.150 0.150 05/26/20 05/26/20 05/27/20 15:50 20:55 04:01 Creatine Kinase 596 H CK-MB (CK-2) Troponin I 0.101 0.070 05/27/20 04:01 Creatine Kinase CK-MB (CK-2) Troponin I 0.042 EKG Comments: Telemetry shows sinus rhythm. No significant cardiac dysrhythmias noted. Occasional ventricular ectopics noted Impressions: Chest X-Ray 05/26/20 06:50 IMPRESSION: Multifocal pneumonia consistent with given history of COVID positive testing and symptomatology. Chest/Abdomen CTA 05/26/20 07:17 IMPRESSION: Patchy bilateral alveolar and interstitial infiltrates right greater than left. Changes of obstructive lung disease. No CT angio evidence of thoracic aortic dissection or acute pulmonary emboli. Assessment & Plan - Diagnosis (1) Elevated troponin I level Is this a current diagnosis for this admission?: Yes (2) Hypotension Qualifiers: Hypotension type: hypotension due to hypovolemia Qualified Code(s): I95.89 - Other hypotension; E86.1 - Hypovolemia Is this a current diagnosis for this admission?: Yes (3) Rhabdomyolysis due to COVID-19 Is this a current diagnosis for this admission?: Yes (4) History of schizophrenia Is this a current diagnosis for this admission?: Yes (5) Hyperlipidemia Qualifiers: Hyperlipidemia type: unspecified Qualified Code(s): E78.5 - Hyperlipidemia, unspecified Is this a current diagnosis for this admission?: Yes (6) Hypertension Qualifiers: Hypertension type: unspecified Qualified Code(s): I10 - Essential (primary) hypertension Is this a current diagnosis for this admission?: Yes (7) Tobacco abuse Is this a current diagnosis for this admission?: Yes (8) Cocaine abuse Is this a current diagnosis for this admission?: Yes - Notes Notes: ELEVATED TROPONIN I: Most likely related to hypotension, pneumonia etc. EKG negative for any significant ST segment changes and patient denies any chest pain. Cardiac enzymes are trending down.. Continue medical management. Patient does have coronary calcification but mild in the LAD distribution on CT chest. May consider doing a stress test prior to discharge or as out patient. HYPERTENSION: On presentation patient was relatively hypotensive. Restart home antihypertensive when feasible. HYPOTENSION: I was told by the ER that patient was hypotensive at some point in the ER and he responded to IV fluids. Possibly related to nausea vomiting diarrhea. Possible sepsis secondary to pneumonia. Intermittent hypotension could be related to viremia, possible sepsis. RHABDOMYOLYSIS: Continue with IV fluid therapy. Tobacco abuse: Patient has been advised against it. Cocaine abuse: Patient has been advised against it. COVID-19 positive test (U07.1, COVID-19) with Acute Pneumonia (J12.89, Other viral pneumonia) (If respiratory failure or sepsis present, add as separate assessment): Leave management plans to hospitalist as they now have some expertise managing it. Continue to observe for any rapid decompensation. - Time Time with patient: 15-25 minutes Medications reviewed and adjusted accordingly: Yes
--- NOTE | 2020-05-27 12:36 | PDOC PROGRESS REPORT ---
Subjective Date:: 05/27/20 Subjective:: EZIO SAMANIEGO is a 60 year old male past medical history of schizophrenia, bipolar depression, cocaine abuse, presenting to ED complaining of nausea, vomiting, diarrhea x1 week. He is stating that prior to dmission he passed out when he was walking, EMS called called, and route to the ED was tested for COVID-19 which was negative. In ED he was noted to have elevated liver enzymes, ferritin, D-dimer, C-reactive protein, troponins, repeat COVID-19 serology and interstitial infiltrates right greater than left. No PE. Patient denies any fever, chills, chest pain, shortness of breath, headache, vision changes, constipation or any urinary symptoms. Patient complaining of being depressed and would like his home meds to be restarted. Denies any suicidal or homicidal ideation. 05/27/2020. Overnight patient was noted to be hypothermic and hypotensive, this morning comfortably resting in the bed enjoying his breakfast, stating that feeling much better, denies any fever, chills, nausea, vomiting. Reason For Visit: COVID PNEUMONIA, ELEVATED TROPS Physical Exam Vital Signs: Temp Pulse Resp BP Pulse Ox 97.5 F 61 22 H 113/74 95 05/27/20 08:23 05/27/20 08:20 05/27/20 08:20 05/27/20 08:20 05/27/20 08:20 Intake & Output 05/26/20 05/27/20 05/28/20 06:59 06:59 06:59 Intake Total 4012 Output Total 225 Balance 3787 Weight 79.1 kg 79.3 kg General appearance: PRESENT: no acute distress, well-developed, well-nourished Head exam: PRESENT: atraumatic, normocephalic Respiratory exam: PRESENT: clear to auscultation hal. ABSENT: rales, rhonchi, wheezes Cardiovascular exam: PRESENT: RRR. ABSENT: diastolic murmur, rubs, systolic mu rmur GI/Abdominal exam: PRESENT: normal bowel sounds, soft. ABSENT: distended, guarding, mass, organolmegaly, rebound, tenderness Neurological exam: PRESENT: alert, awake, oriented to person, oriented to place, CN II-XII grossly intact. ABSENT: motor sensory deficit Results Laboratory Results: 05/27/20 04:01 05/27/20 04:01 05/26/20 05/27/20 05/27/20 12:55 04:01 04:01 WBC 4.3 RBC 3.10 L Hgb 10.5 L Hct 29.8 L MCV 96 MCH 33.9 H MCHC 35.3 RDW 15.4 H Plt Count 123 L Seg Neutrophils % 71.6 Sodium 138.5 Potassium 3.7 Chloride 108 H Carbon Dioxide 26 Anion Gap 5 BUN 29 H Creatinine 0.83 Est GFR ( Amer) > 60 Glucose 181 H Lactic Acid Calcium 8.2 L Ferritin 729.00 H Total Bilirubin 1.4 H AST 128 H Alkaline Phosphatase 35 L C-Reactive Protein 82.4 H Total Protein 5.5 L Albumin 2.7 L Blood Type AB POSITIVE 05/27/20 04:01 WBC RBC Hgb Hct MCV MCH MCHC RDW Plt Count Seg Neutrophils % Sodium Potassium Chloride Carbon Dioxide Anion Gap BUN Creatinine Est GFR ( Amer) Glucose Lactic Acid 1.1 Calcium Ferritin Total Bilirubin AST Alkaline Phosphatase C-Reactive Protein Total Protein Albumin Blood Type 05/26/20 05/26/20 05/26/20 06:02 06:02 07:50 Creatine Kinase 2209 H CK-MB (CK-2) 2.76 Troponin I 0.150 0.150 05/26/20 05/26/20 05/27/20 15:50 20:55 04:01 Creatine Kinase 596 H CK-MB (CK-2) Troponin I 0.101 0.070 05/27/20 04:01 Creatine Kinase CK-MB (CK-2) Troponin I 0.042 Impressions: Chest X-Ray 05/26/20 06:50 IMPRESSION: Multifocal pneumonia consistent with given history of COVID positive testing and symptomatology. Chest/Abdomen CTA 05/26/20 07:17 IMPRESSION: Patchy bilateral alveolar and interstitial infiltrates right greater than left. Changes of obstructive lung disease. No CT angio evidence of thoracic aortic dissection or acute pulmonary emboli. Assessment and Plan - Diagnosis (1) Pneumonia due to COVID-19 virus Is this a current diagnosis for this admission?: Yes Plan: SPO2 WNL on 2 L. Was hypothermic last night. WBC WNL. Continue supplemental oxygen, steroids, empiric IV antibiotics, ivermectin, vitamin D, vitamin C, zinc, DuoNebs, pulmonary toileting. (2) Cocaine abuse Is this a current diagnosis for this admission?: Yes Plan: UA positive for cocaine. Advised on abstinence. Monitor for withdrawal. (3) Elevated troponin I level Is this a current diagnosis for this admission?: Yes Plan: Denies any chest pain. UA positive for cocaine. Likely related to cocaine abuse. Troponins trending down. 2D echo 01/07/2018. LVEF WNL. Admit to telemetry, trend troponins, antiplatelets, statins. Cardiology on board, no intervention planned at point please refer to note. (4) History of schizophrenia Is this a current diagnosis for this admission?: Yes Plan: Resume home meds. (5) Bipolar depression Is this a current diagnosis for this admission?: Yes Plan: Denies any suicidal or homicidal ideation. Resume home meds. Outpatient PCP and psychiatry follow-up. - Time Time Spent with patient: 35 or more minutes Anticipated Discharge Disposition: Home, Self Care Anticipated Discharge Timeframe: within 72 hours
--- NOTE | 2020-05-27 20:45 | EKG REPORT ---
SEVERITY:- ABNORMAL ECG - SINUS BRADYCARDIA NONSPECIFIC T ABNORMALITIES, ANTERIOR LEADS BORDERLINE PROLONGED QT INTERVAL : Confirmed by: Gisella Medina MD 27-May-2020 20:44:46
[2020-05-27] MEDS: OLANZAPINE 5 MG TABLET PO SCH (21:22)
[2020-05-27] MEDS: DIVALPROEX SODIUM 500 MG TAB.SR.24H PO SCH (21:22)
[2020-05-27] MEDS: ATORVASTATIN CALCIUM 40 MG TABLET PO SCH (21:22)
[2020-05-28 07:19] LABS: HEMATOCRIT 30.9 % (37.9-51.0); HEMOGLOBIN 10.9 g/dL (13.5-17.0); MEAN CORPUSCULAR HEMOGLOBIN 34.3 pg (27.0-33.4); MEAN CORPUSCULAR HGB CONC 35.4 g/dL (32.0-36.0); MEAN CORPUSCULAR VOLUME 97 fl (80-97); PLATELET COUNT 153 10^3/uL (150-450); RED BLOOD COUNT 3.19 10^6/uL (4.35-5.55); RED CELL DISTRIBUTION WIDTH 15.7 % (11.5-14.0)
[2020-05-28 07:23] LABS: INTERNATIONAL RATION (INR) 1.11; PROTHROMBIN TIME 14.5 SEC (11.4-15.4)
[2020-05-28 07:24] LABS: FIBRINOGEN 415 mg/dL (209-497); PARTIAL THROMBOPLASTIN TIME 36.7 SEC (23.5-35.8)
[2020-05-28 07:26] LABS: D-DIMER 0.62 ug/mL (0.00-0.50)
[2020-05-28 07:44] LABS: ALBUMIN 2.6 g/dL (3.5-5.0); ALKALINE PHOSPHATASE 40 U/L (38-126); ASPARTATE AMINO TRANSFERASE 77 U/L (17-59); BILIRUBIN,DIRECT 0.3 mg/dL (0.0-0.4); BILIRUBIN,TOTAL 0.9 mg/dL (0.2-1.3); BLOOD UREA NITROGEN 19 mg/dL (7-20); C-REACTIVE PROTEIN 45.3 mg/L (<10.0); CALCIUM 8.2 mg/dL (8.4-10.2); GLUCOSE 86 mg/dL (75-110); POTASSIUM 3.9 mmol/L (3.6-5.0); TOTAL PROTEIN 5.4 g/dL (6.3-8.2)
[2020-05-28 07:47] LABS: ANION GAP 6 (5-19); CARBON DIOXIDE 28 mmol/L (22-30); CHLORIDE 109 mmol/L (98-107)
--- NOTE | 2020-05-28 09:19 | PDOC PROGRESS REPORT ---
Subjective Date:: 05/28/20 Reason For Visit: EZIO SAMANIEGO is a 60 year old male with history of schizophrenia, depres guy, bipolar disease, hypertension, cocaine use who was admitted on 05/26/2020 after he presented to the emergency room complaining of nausea, vomiting and diarrhea as well as having an episode of syncope at which time EMS was called. He was initially consulted to the cardiology service for further evaluation of elevated troponin which actually peaked at 0.150 and down trended to 0.042. He is Covid positive and his chest x-ray is consistent with COVID-19 pneumonia. He has had an uneventful stay from the cardiovascular standpoint, without ischemic symptoms and with just a few episodes of hypotension which appears to be resolved. This morning he continues to be at his baseline and without ischemic or heart failure symptoms. His telemetry shows normal sinus rhythm without complex atrial or ventricular dysrhythmias. Physical exam on 05/28/2020: GENERAL: Pleasant and conversational. Oriented x3 with normal mood. Not in acute distress. Well groomed and well developed. HEENT: Normocephalic, atraumatic. Pupils equal. Sclerae anicteric. Oropharynx moist. NECK: No JVD. No carotid bruits. LUNGS: Clear to auscultation bilaterally. Normal respiratory effort without the use of accessory muscles or intercostal retractions. CARDIOVASCULAR: Regular rate and rhythm, normal S1 and S2 without murmurs, rubs, or gallops. PMI not displaced. ABDOMEN: No masses or tenderness to palpation. No bruit. No splenomegaly or hepatomegaly. No abdominal aorta bruit noted. EXTREMITIES: No edema, no cyanosis, no clubbing. +2 pulses femoral and pedal pulses bilaterally. SKIN: No lesions or rashes. MUSCULOSKELETAL: No chest tenderness to palpation. NEUROLOGIC: Nonfocal. No gross sensory or motor deficits bilateral upper or lower extremities. Physical Exam Vital Signs: Temp Pulse Resp BP Pulse Ox 97.9 F 60 18 108/65 92 05/28/20 02:59 05/28/20 02:59 05/28/20 02:59 05/28/20 02:59 05/28/20 02:59 Intake & Output 05/27/20 05/28/20 05/29/20 06:59 06:59 06:59 Intake Total 4012 2180 Output Total 225 725 Balance 3787 1455 Weight 79.3 kg 83 kg Results Laboratory Results: 05/27/20 04:01 05/27/20 04:01 05/26/20 05/26/20 05/26/20 06:02 06:02 07:50 Creatine Kinase 2209 H CK-MB (CK-2) 2.76 Troponin I 0.150 0.150 05/26/20 05/26/20 05/27/20 15:50 20:55 04:01 Creatine Kinase 596 H CK-MB (CK-2) Troponin I 0.101 0.070 05/27/20 04:01 Creatine Kinase CK-MB (CK-2) Troponin I 0.042 Impressions: Chest X-Ray 05/26/20 06:50 IMPRESSION: Multifocal pneumonia consistent with given history of COVID positive testing and symptomatology. Chest/Abdomen CTA 05/26/20 07:17 IMPRESSION: Patchy bilateral alveolar and interstitial infiltrates right greater than left. Changes of obstructive lung disease. No CT angio evidence of thoracic aortic dissection or acute pulmonary emboli. 05/28/20 07:05 05/28/20 07:05 MCV 97 fl (80-97) 05/28/20 07:05 MCH 34.3 pg (27.0-33.4) H 05/28/20 07:05 MCHC 35.4 g/dL (32.0-36.0) 05/28/20 07:05 RDW 15.7 % (11.5-14.0) H 05/28/20 07:05 Seg Neutrophils % 71.6 % (42-78) 05/27/20 04:01 Chloride 109 mmol/L (98-107) H 05/28/20 07:05 Carbon Dioxide 28 mmol/L (22-30) 05/28/20 07:05 Anion Gap 6 (5-19) 05/28/20 07:05 Est GFR ( Amer) > 60 (>60) 05/28/20 07:05 Glucose 86 mg/dL (75-110) 05/28/20 07:05 Lactic Acid 1.1 mmol/L (0.7-2.1) 05/27/20 04:01 Calcium 8.2 mg/dL (8.4-10.2) L 05/28/20 07:05 Magnesium 1.8 mg/dL (1.6-2.3) 05/26/20 06:02 Ferritin 547.00 ng/mL (17.9-464.0) H 05/28/20 07:05 Total Bilirubin 0.9 mg/dL (0.2-1.3) 05/28/20 07:05 AST 77 U/L (17-59) H 05/28/20 07:05 Alkaline Phosphatase 40 U/L (38-126) 05/28/20 07:05 C-Reactive Protein 45.3 mg/L (<10.0) H 05/28/20 07:05 Total Protein 5.4 g/dL (6.3-8.2) L 05/28/20 07:05 Albumin 2.6 g/dL (3.5-5.0) L 05/28/20 07:05 Urine Color MARISELA 05/26/20 08:54 Urine Appearance CLEAR 05/26/20 08:54 Urine pH 6.0 (5.0-9.0) 05/26/20 08:54 Ur Specific [place] 1.059 05/26/20 08:54 Urine Protein 30 mg/dL (NEGATIVE) H 05/26/20 08:54 Urine Glucose (UA) NEGATIVE mg/dL (NEGATIVE) 05/26/20 08:54 Urine Ketones NEGATIVE mg/dL (NEGATIVE) 05/26/20 08:54 Urine Blood NEGATIVE (NEGATIVE) 05/26/20 08:54 Urine Nitrite NEGATIVE (NEGATIVE) 05/26/20 08:54 Ur Leukocyte Esterase NEGATIVE (NEGATIVE) 05/26/20 08:54 Urine WBC (Auto) 1 /HPF 05/26/20 08:54 Urine RBC (Auto) 2 /HPF 05/26/20 08:54 Blood Type AB POSITIVE 05/26/20 12:55 05/26/20 05/26/20 05/26/20 06:02 06:02 07:50 Creatine Kinase 2209 H CK-MB (CK-2) 2.76 Troponin I 0.150 0.150 05/26/20 05/26/20 05/27/20 15:50 20:55 04:01 Creatine Kinase 596 H CK-MB (CK-2) Troponin I 0.101 0.070 05/27/20 04:01 Creatine Kinase CK-MB (CK-2) Troponin I 0.042 Current Medication List Generic Name Dose Route Start Last Admin Trade Name Duyen PRN Reason Stop Dose Admin Acetaminophen 650 mg 05/26/20 11:27 Acetaminophen 325 Mg Tablet PO 06/25/20 11:26 Q4HP PRN FEVER >101 Albuterol/Ipratropium 3 ml 05/26/20 11:27 Ipratropium/Albuterol 0.5-2.5 Mg/3 Ml Ampul NEB 06/25/20 11:26 RTQ6HP PRN SHORTNESS OF BREATH Ascorbic Acid 500 mg 05/26/20 12:00 05/27/20 17:12 Ascorbic Acid 500 Mg Tablet PO 06/25/20 11:59 500 mg BID MATTHEW Administration Aspirin 81 mg 05/26/20 12:00 05/27/20 10:07 Aspirin 81 Mg Tablet, Ent Coated PO 06/25/20 11:59 81 mg DAILY MATTHEW Administration Atorvastatin Calcium 40 mg 05/26/20 22:00 05/27/20 21:22 Atorvastatin Calcium 40 Mg Tablet PO 06/25/20 21:59 40 mg QHS MATTHEW Administration Azithromycin 250 mg 05/27/20 10:00 05/27/20 10:06 Azithromycin 250 Mg Tablet PO 06/03/20 09:59 250 mg DAILY MATTHEW Administration Benztropine Mesylate 2 mg 05/26/20 18:00 05/27/20 17:12 Benztropine Mesylate 1 Mg Tablet PO 06/25/20 17:59 2 mg BID MATTHEW Administration Cholecalciferol 2,000 unit 05/26/20 12:00 05/27/20 10:06 Cholecalciferol (D3) 1,000 Unit (25 Mcg) Tablet PO 06/25/20 11:59 2,000 unit DAILY MATTHEW Administration Dexamethasone Sodium Phosphate 6 mg 05/26/20 12:00 05/27/20 10:07 Dexamethasone Sod Phos Inj 10 Mg/1 Ml Vial IV 06/25/20 11:59 6 mg DAILY MATTHEW Administration Divalproex Sodium 1,000 mg 05/26/20 22:00 05/27/20 21:22 Divalproex Sodium 500 Mg Tab.Sr.24h PO 06/25/20 21:59 1,000 mg QHS MATTHEW Administration Docusate Sodium 100 mg 05/26/20 18:00 05/27/20 17:12 Docusate Sodium 100 Mg Capsule PO 06/25/20 17:59 100 mg BID MATTHEW Administration Enoxaparin Sodium 80 mg 05/26/20 22:00 05/27/20 21:22 Enoxaparin Sodium Inj 80 Mg/0.8 Ml Disp.Syrin SUBCUT 06/25/20 21:59 80 mg Q12 MATTHEW Administration Famotidine 20 mg 05/26/20 22:00 05/27/20 21:23 Famotidine 20 Mg Tablet PO 06/25/20 21:59 20 mg Q12 MATTHEW Administration Fluoxetine HCl 20 mg 05/27/20 10:00 05/27/20 10:05 Fluoxetine Hcl 20 Mg Capsule PO 06/26/20 09:59 20 mg DAILY MATTHEW Administration Hydralazine HCl 10 mg 05/26/20 11:33 Hydralazine Hcl 10 Mg Tablet PO 06/25/20 11:32 Q6HP PRN Give For Sbp > [160] Ceftriaxone Sodium/Dextrose 1 gm in 50 mls @ 100 mls/hr 05/28/20 10:00 Rocephin Rtu 1 Gm/D5w 50 Ml Premix IV 06/04/20 09:59 DAILY MATTHEW Dextrose/Sodium Chloride 1,000 mls @ 120 mls/hr 05/27/20 04:38 05/27/20 17:17 D5ns 1000 Ml Iv Soln IV 06/26/20 04:37 120 mls/hr CONTINUOUS PRN Administration THIS MED IS NOT "PRN" Ivermectin 12 mg 05/26/20 13:00 05/26/20 12:34 Ivermectin 3 Mg Tablet PO 05/28/20 10:01 12 mg Q2DAYS MATTHEW Administration Magnesium Hydroxide 30 ml 05/26/20 11:27 Magnesium Hydroxide Susp 30 Ml Udcup PO 06/25/20 11:26 DAILYP PRN FOR CONSTIPATION Multivitamins 1 tab 05/27/20 10:00 05/27/20 10:05 Multivitamin Tablet PO 06/26/20 09:59 1 tab DAILY MATTHEW Administration Multivitamins 1 tab 05/26/20 18:45 Multivitamin Tablet PO 06/25/20 18:44 NOW MATTHEW Olanzapine 20 mg 05/26/20 22:00 05/27/20 21:22 Olanzapine 5 Mg Tablet PO 06/25/20 21:59 20 mg QHS MATTHEW Administration Ondansetron HCl 4 mg 05/26/20 11:27 Ondansetron 4 Mg Tab.Rapdis PO 06/25/20 11:26 Q8HP PRN FOR NAUSEA/VOMITING Ondansetron HCl 4 mg 05/26/20 11:27 Ondansetron Hcl Inj/Pf 4 Mg/2 Ml Sdv IV 06/25/20 11:26 Q4HP PRN FOR NAUSEA/VOMITING Oxycodone/Acetaminophen 1 tab 05/26/20 11:27 Oxycodone-Acetaminophen 5-325 Mg Tablet PO 06/02/20 11:26 Q6HP PRN FOR PAIN SCALE 4-5 Promethazine HCl 12.5 mg 05/26/20 11:27 Promethazine Hcl 25 Mg Tablet PO 06/25/20 11:26 Q4HP PRN FOR UNRESOLVED NAUSEA/VOMITING Promethazine HCl 6.25 mg 05/26/20 11:27 Promethazine Hcl Inj 25 Mg/1 Ml Vial IV 06/25/20 11:26 Q4HP PRN FOR UNRESOLVED NAUSEA/VOMITING Sodium Chloride 2.5 ml 05/26/20 14:00 05/28/20 05:17 Normal Saline Flush 2.5 Ml Disp.Syrin IV 06/25/20 13:59 2.5 ml Q8 MATTHEW Administration Temazepam 7.5 mg 05/26/20 11:27 Temazepam 7.5 Mg Capsule PO 06/02/20 11:26 HSP PRN SLEEP OR INSOMNIA Zinc Sulfate 220 mg 05/26/20 12:00 05/27/20 10:05 Zinc Sulfate 220 Mg Capsule PO 06/25/20 11:59 220 mg DAILY MATTHEW Administration Discontinued Medications Generic Name Dose Route Start Last Admin Trade Name Freq PRN Reason Stop Dose Admin Azithromycin 500 mg 05/26/20 12:30 05/26/20 12:34 Azithromycin 250 Mg Tablet PO 05/26/20 12:31 500 mg NOW ONE Administration Fluoxetine HCl 20 mg 05/26/20 18:45 05/26/20 18:43 Fluoxetine Hcl 20 Mg Capsule PO 05/26/20 18:46 20 mg NOW ONE Administration Dextrose/Lactated Ringer's 1,000 mls @ 0 mls/hr 05/26/20 06:48 05/26/20 08:53 D5lr 1000 Ml Iv Soln IV 05/26/20 06:49 Infused NOW ONE Infusion Wide Open Dextrose/Sodium Chloride 1,000 mls @ 120 mls/hr 05/26/20 18:30 05/27/20 04:11 D5ns 1000 Ml Iv Soln IV 06/25/20 18:29 Infused CONTINUOUS PRN Infusion THIS MED IS NOT "PRN" Dextrose/Sodium Chloride 1,000 mls @ 150 mls/hr 05/27/20 04:08 D5ns 1000 Ml Iv Soln IV 06/26/20 04:07 CONTINUOUS PRN THIS MED IS NOT "PRN" Ceftriaxone Sodium/Dextrose 1 gm in 50 mls @ 100 mls/hr 05/27/20 05:00 05/27/20 05:17 Rocephin Rtu 1 Gm/D5w 50 Ml Premix IV 05/27/20 05:29 Infused NOW ONE Infusion Ceftriaxone Sodium/Dextrose Confirm 05/27/20 04:28 05/27/20 04:48 Rocephin Rtu 1 Gm/D5w 50 Ml Premix Administered 05/27/20 04:29 Not Given Dose 1 gm in 50 mls @ ud IV .STK-MED ONE Sodium Chloride 1,000 mls @ 0 mls/hr 05/27/20 05:00 05/27/20 05:48 Nacl 0.9% 1000 Ml Iv Soln IV 05/27/20 05:01 Infused BOLUS ONE Infusion Wide Open Assessment & Plan - Diagnosis (1) Elevated troponin I level Is this a current diagnosis for this admission?: Yes Plan: The patient has remained hemodynamically and electrically stable and without ischemic symptoms. His troponin I was mildly elevated and has already down trended. Whether or not this represents a type II UT versus COVID-19 pneumonia related it is unknown. It is well-known and well described in the cardiology literature that COVID-19 pneumonia patients may have a positive troponin unrelated to traditional ischemic heart disease and the elevated troponin may be secondary to the severity of the COVID-19 infection versus direct infiltration of the virus in the heart versus cardiac strain from the pneumonia versus myocarditis among other etiologies. At this point the patient has remained stable and without ischemic symptoms therefore no further acute cardiovascular interventions are indicated at this point. The patient does have cardiovascular risk factors therefore he will need ischemic assessment in the future once he is fully recovered from his Covid pneumonia. Recommendations: -Continue to treat underlying pneumonia. -Continue with current cardiovascular medications. -No indications for further cardiovascular interventions at this time therefore we will sign off. Please reconsult as clinically indicated. -Please notify me as to when the patient is going to be discharged in order to arrange for cardiology follow-up. (2) Hypotension Qualifiers: Hypotension type: hypotension due to hypovolemia Qualified Code(s): I95.89 - Other hypotension; E86.1 - Hypovolemia Is this a current diagnosis for this admission?: Yes Plan: Essentially resolved. I will defer further management to the hospitalist team. (3) Rhabdomyolysis due to COVID-19 Is this a current diagnosis for this admission?: Yes Plan: Further management per hospitalist team. (4) Pneumonia due to COVID-19 virus Is this a current diagnosis for this admission?: Yes Plan: Further management per hospitalist team.
[2020-05-28] MEDS: DOCUSATE SODIUM 100 MG CAPSULE PO SCH ×2 (09:42→18:16)
[2020-05-28] MEDS: BENZTROPINE MESYLATE 1 MG TABLET PO SCH ×2 (09:42→18:16)
[2020-05-28] MEDS: DEXAMETHASONE SOD PHOS INJ 10 MG/1 ML VIAL IV SCH (09:42)
[2020-05-28] MEDS: ASPIRIN 81 MG TABLET, ENT COATED PO SCH (09:44)
[2020-05-28] MEDS: ENOXAPARIN SODIUM INJ 80 MG/0.8 ML DISP.SYRIN SUBCUT SCH (09:44)
[2020-05-28] MEDS: ASCORBIC ACID 500 MG TABLET PO SCH ×2 (09:45→18:16)
[2020-05-28] MEDS: CHOLECALCIFEROL (D3) 1,000 UNIT (25 MCG) TABLET PO SCH (09:45)
[2020-05-28] MEDS: AZITHROMYCIN 250 MG TABLET PO SCH (09:45)
[2020-05-28] MEDS: ZINC SULFATE 220 MG CAPSULE PO SCH (09:45)
[2020-05-28] MEDS: FLUOXETINE HCL 20 MG CAPSULE PO SCH (09:45)
[2020-05-28] MEDS: FAMOTIDINE 20 MG TABLET PO SCH ×2 (09:45→21:55)
[2020-05-28] MEDS: IVERMECTIN 3 MG TABLET PO SCH (09:46)
[2020-05-28] MEDS: MULTIVITAMIN TABLET PO SCH (09:46)
[2020-05-28] MEDS: DEXTROSE 5%-NORMAL SALINE 1,000 ML IV PRN (09:48)
[2020-05-28] MEDS ORDERED: CEFTRIAXONE 1 GM/D5W RTU 1 GM/50 ML RTUPB IV SCH (10:00)
[2020-05-28] MEDS: CEFTRIAXONE SODIUM 1,000 MG in DEXTROSE 5%-WATER 50 ML IV SCH (12:32)
--- NOTE | 2020-05-28 13:45 | PDOC PROGRESS REPORT ---
Subjective Date:: 05/28/20 Subjective:: EZIO SAMANIEGO is a 60 year old male past medical history of schizophrenia, bipolar depression, cocaine abuse, presenting to ED complaining of nausea, vomiting, diarrhea x1 week. He is stating that prior to dmission he passed out when he was walking, EMS called called, and route to the ED was tested for COVID-19 which was negative. In ED he was noted to have elevated liver enzymes, ferritin, D-dimer, C-reactive protein, troponins, repeat COVID-19 serology and interstitial infiltrates right greater than left. No PE. Patient denies any fever, chills, chest pain, shortness of breath, headache, vision changes, constipation or any urinary symptoms. Patient complaining of being depressed and would like his home meds to be restarted. Denies any suicidal or homicidal ideation. 05/27/2020. Overnight patient was noted to be hypothermic and hypotensive, this morning comfortably resting in the bed enjoying his breakfast, stating that feeling much better, denies any fever, chills, nausea, vomiting. 05/28/2020. Acute events overnight. Patient is on room air saturating WNL, patient could potentially be discharged home however patient appears to be confused today, and when asked where he lives he said he lives here at [facility], apparently patient has been having multiple admission to [facility] for suicidal ideation and has been seen by psychiatry here, was also IVC last time and transferred to [place]. We contacted his brother to see if he has a place, as per brother patient has an apartment but brother could not provide much information, patient could potentially be discharged home but I am not sure if it safe to discharge him until we find out if he has a place to go to. Discharge planning has been consulted. Reason For Visit: COVID PNEUMONIA, ELEVATED TROPS Physical Exam Vital Signs: Temp Pulse Resp BP Pulse Ox 98.0 F 84 18 106/55 L 93 05/28/20 12:02 05/28/20 12:02 05/28/20 12:02 05/28/20 12:02 05/28/20 12:02 Intake & Output 05/27/20 05/28/20 05/29/20 06:59 06:59 06:59 Intake Total 4012 3180 Output Total 225 725 Balance 3787 0835 Weight 79.3 kg 83 kg General appearance: PRESENT: no acute distress, well-developed, well-nourished Head exam: PRESENT: atraumatic, normocephalic Respiratory exam: PRESENT: clear to auscultation hal. ABSENT: rales, rhonchi, wheezes Cardiovascular exam: PRESENT: RRR. ABSENT: diastolic murmur, rubs, systolic murmur GI/Abdominal exam: PRESENT: normal bowel sounds, soft. ABSENT: distended, guarding, mass, organolmegaly, rebound, tenderness Neurological exam: PRESENT: alert, awake, oriented to person, CN II-XII grossly intact. ABSENT: motor sensory deficit Psychiatric exam: PRESENT: unusual affect Skin exam: PRESENT: dry, intact, warm. ABSENT: cyanosis, rash Results Laboratory Results: 05/28/20 07:05 05/28/20 07:05 05/28/20 05/28/20 07:05 07:05 WBC 9.0 D RBC 3.19 L Hgb 10.9 L Hct 30.9 L MCV 97 MCH 34.3 H MCHC 35.4 RDW 15.7 H Plt Count 153 Sodium 143.0 Potassium 3.9 Chloride 109 H Carbon Dioxide 28 Anion Gap 6 BUN 19 Creatinine 0.84 Est GFR ( Amer) > 60 Glucose 86 Calcium 8.2 L Ferritin 547.00 H Total Bilirubin 0.9 AST 77 H Alkaline Phosphatase 40 C-Reactive Protein 45.3 H Total Protein 5.4 L Albumin 2.6 L 05/26/20 05/26/20 05/26/20 06:02 06:02 07:50 Creatine Kinase 2209 H CK-MB (CK-2) 2.76 Troponin I 0.150 0.150 05/26/20 05/26/20 05/27/20 15:50 20:55 04:01 Creatine Kinase 596 H CK-MB (CK-2) Troponin I 0.101 0.070 05/27/20 04:01 Creatine Kinase CK-MB (CK-2) Troponin I 0.042 Impressions: Chest X-Ray 05/26/20 06:50 IMPRESSION: Multifocal pneumonia consistent with given history of COVID positive testing and symptomatology. Chest/Abdomen CTA 05/26/20 07:17 IMPRESSION: Patchy bilateral alveolar and interstitial infiltrates right greater than left. Changes of obstructive lung disease. No CT angio evidence of thoracic aortic dissection or acute pulmonary emboli. Assessment and Plan - Diagnosis (1) Pneumonia due to COVID-19 virus Is this a current diagnosis for this admission?: Yes Plan: SPO2 WNL on RA. Afebrile. WBC WNL. Continue supplemental oxygen, steroids, empiric IV antibiotics, ivermectin, vitamin D, vitamin C, zinc, DuoNebs, pulmonary toileting. (2) Cocaine abuse Is this a current diagnosis for this admission?: Yes Plan: UA positive for cocaine. Advised on abstinence. Monitor for withdrawal. (3) Elevated troponin I level Is this a current diagnosis for this admission?: Yes Plan: Denies any chest pain. UA positive for cocaine. Likely related to cocaine abuse or Covid pneumonia. Troponins trending down. 2D echo 01/07/2018. LVEF WNL. Continue telemetry, antiplatelets and statins. Cardiology on board, no intervention planned at point please refer to note. (4) History of schizophrenia Is this a current diagnosis for this admission?: Yes Plan: Resume home meds. Outpatient PCP and psychiatry follow-up. (5) Bipolar depression Is this a current diagnosis for this admission?: Yes Plan: Denies any suicidal or homicidal ideation. Resume home meds. Outpatient PCP and psychiatry follow-up. - Time Time Spent with patient: 35 or more minutes Anticipated Discharge Disposition: Longterm Facility Anticipated Discharge Timeframe: within 24 hours
[2020-05-28] MEDS ORDERED: PROMETHAZINE HCL INJ 25 MG/1 ML VIAL IV PRN (14:30)
[2020-05-28] MEDS ORDERED: ONDANSETRON HCL INJ/PF 4 MG/2 ML SDV IV PRN (14:30)
[2020-05-28] MEDS ORDERED: ONDANSETRON 4 MG TAB.RAPDIS PO PRN (14:30)
[2020-05-28 18:18] LABS: APPEARANCE,URINE CLEAR; BILIRUBIN,URINE NEGATIVE (NEGATIVE); COLOR,URINE YELLOW; GLUCOSE, URINE NEGATIVE (NEGATIVE); KETONES,URINE NEGATIVE (NEGATIVE); LEUKOCYTE ESTERASE,URINE NEGATIVE (NEGATIVE); NITRITE,URINE NEGATIVE (NEGATIVE); PROTEIN,URINE NEGATIVE (NEGATIVE); URINE SPECIFIC GRAVITY 1.016
--- NOTE | 2020-05-28 18:26 | XCELERA REPORT ---
[address] [address] Transthoracic Echocardiogram Report Name: EZIO SAMANIEGO Age: 60 yrs Gender: Male : 1960 Patient Status: Inpatient Patient Location: [address] [place] [address] Study Date: 05/28/2020 11:21 AM Height: 70 in Weight: 174 lb BSA: 2.0 m2 Procedure: A complete two-dimensional transthoracic echocardiogram was performed (2D, M-mode, spectral and color flow Doppler). The study was technically limited with all images being suboptimal in quality. Reason For Study: Arrythmia Previous Evaluation: A previous study was performed on 01/08/18 also a limited study. Ordering Physician: SUZE JJ Performed By: Mylene Wade Interpretation Summary Very limited study and almost uninterpretable. LV systolic function appears to be preserved. Tricuspid, pulmonic and aortic valves are not well visualized and cannot evaluate for structural abnormalities. Consider CLAUDIA if clinically indicated. MMode/2D Measurements & Calculations RVDd: 3.5 cm LVIDd: 4.1 cm FS: 37.6 % Ao root diam: 3.1 cm IVSd: 0.94 cm LVIDs: 2.6 cm EDV(Teich): 74.1 ml Ao root area: 7.4 cm2 LVPWd: 0.86 cm ESV(Teich): 23.6 ml LA dimension: 3.8 cm EF(Teich): 68.1 % Doppler Measurements & Calculations MV E max braeden: MV P1/2t max braeden: Ao V2 max: LV V1 max P.6 cm/sec 146.1 cm/sec 190.8 cm/sec 6.9 mmHg MV A max [place]: MV P1/2t: 94.1 msec Ao max PG: LV V1 max: 133.3 cm/sec MVA(P1/2t): 2.3 cm2 14.6 mmHg 131.8 cm/sec MV E/A: 1.1 MV dec slope: 454.8 cm/sec2 MV dec time: 0.31 sec PA V2 max: TR max braeden: MV P1/2t-pr_phl: 104.1 cm/sec 211.7 cm/sec 94.1 msec PA max P.3 mmHgTR max P.9 mmHg Left Ventricle The left ventricle is not well visualized. Very difficult to assess LV systolic function, appears to be normal. Please consider other methods of assessing LV systolic function. LV diastolic function could not be adequately assessed. Not all wall segments were well visualized. Thrombus can not be excluded. Right Ventricle The right ventricle is not well visualized secondary to technical limitations. Atria Right atrium not well visualized secondary to technical limitations. The left atrium is not well visualized secondary to technical limitations. Interarterial septum not well visualized and not well dopplered. Cannot comment on ASD/PFO presence. Mitral Valve The mitral valve is normal in structure and function. There is no mitral valve stenosis. Aortic Valve The aortic valve is not well visualized secondary to technical limitations. There is no aortic valve stenosis. No aortic regurgitation is present. Tricuspid Valve The tricuspid valve is not well visualized secondary to technical limitations. There is a trace or physiologic amount of tricuspid regurgitation. Pulmonic Valve The pulmonic valve is not well visualized. Great Vessels The inferior vena cava appeared normal and decreased > 50% with respiration (RAP 5-10 mmHg). Effusions Not well visualized. : SUZE JJ Antonio
[2020-05-28] MEDS: OLANZAPINE 5 MG TABLET PO SCH (21:55)
[2020-05-28] MEDS: ATORVASTATIN CALCIUM 40 MG TABLET PO SCH (21:55)
[2020-05-28] MEDS: DIVALPROEX SODIUM 500 MG TAB.SR.24H PO SCH (21:55)
[2020-05-29] MEDS: DEXTROSE 5%-NORMAL SALINE 1,000 ML IV PRN ×2 (05:12→21:34)
[2020-05-29 06:24] LABS: ABSOLUTE LYMPHOCYTES (AUTO) 1.2 10^3/uL (0.5-4.7); ABSOLUTE MONOCYTES (AUTO) 0.3 10^3/uL (0.1-1.4); ABSOLUTE NEUT (AUTO) 3.5 10^3/uL (1.7-8.2); BASOPHILS % (AUTO) 0.2 % (0-2); HEMATOCRIT 28.8 % (37.9-51.0); HEMOGLOBIN 10.2 g/dL (13.5-17.0); LYMPHOCYTES % (AUTO) 23.4 % (13-45); MEAN CORPUSCULAR HEMOGLOBIN 34.2 pg (27.0-33.4); MEAN CORPUSCULAR HGB CONC 35.4 g/dL (32.0-36.0); MEAN CORPUSCULAR VOLUME 97 fl (80-97); MONOCYTES % (AUTO) 6.9 % (3-13); PLATELET COUNT 161 10^3/uL (150-450); RED BLOOD COUNT 2.98 10^6/uL (4.35-5.55); RED CELL DISTRIBUTION WIDTH 15.4 % (11.5-14.0); SEGMENTED NEUTROPHILS % (AUTO) 69.5 % (42-78); TOTAL CELLS COUNTED % (AUTO) 100 %
[2020-05-29 06:59] LABS: ALBUMIN 2.3 g/dL (3.5-5.0); ALKALINE PHOSPHATASE 37 U/L (38-126); ASPARTATE AMINO TRANSFERASE 66 U/L (17-59); BILIRUBIN,DIRECT 0.4 mg/dL (0.0-0.4); BILIRUBIN,TOTAL 1.1 mg/dL (0.2-1.3); BLOOD UREA NITROGEN 15 mg/dL (7-20); CALCIUM 8.1 mg/dL (8.4-10.2); GLUCOSE 89 mg/dL (75-110); POTASSIUM 3.6 mmol/L (3.6-5.0); TOTAL PROTEIN 4.9 g/dL (6.3-8.2)
[2020-05-29 07:02] LABS: CARBON DIOXIDE 25 mmol/L (22-30); CHLORIDE 112 mmol/L (98-107)
[2020-05-29 07:05] LABS: ANION GAP 4 (5-19)
[2020-05-29] MEDS: CEFTRIAXONE SODIUM 1,000 MG in DEXTROSE 5%-WATER 50 ML IV SCH (09:06)
[2020-05-29] MEDS: ENOXAPARIN SODIUM INJ 60 MG/0.6 ML DISP.SYRIN SUBCUT SCH (09:06)
[2020-05-29] MEDS: DEXAMETHASONE SOD PHOS INJ 10 MG/1 ML VIAL IV SCH (09:06)
[2020-05-29] MEDS: MULTIVITAMIN TABLET PO SCH (09:09)
[2020-05-29] MEDS: ASPIRIN 81 MG TABLET, ENT COATED PO SCH (09:09)
[2020-05-29] MEDS: FLUOXETINE HCL 20 MG CAPSULE PO SCH (09:09)
[2020-05-29] MEDS: BENZTROPINE MESYLATE 1 MG TABLET PO SCH ×2 (09:09→17:08)
[2020-05-29] MEDS: FAMOTIDINE 20 MG TABLET PO SCH ×2 (09:09→21:21)
[2020-05-29] MEDS: ZINC SULFATE 220 MG CAPSULE PO SCH (09:09)
[2020-05-29] MEDS: AZITHROMYCIN 250 MG TABLET PO SCH (09:10)
[2020-05-29] MEDS: CHOLECALCIFEROL (D3) 1,000 UNIT (25 MCG) TABLET PO SCH (09:10)
[2020-05-29] MEDS: DOCUSATE SODIUM 100 MG CAPSULE PO SCH ×2 (09:10→17:08)
[2020-05-29] MEDS: ASCORBIC ACID 500 MG TABLET PO SCH ×2 (09:10→17:08)
--- NOTE | 2020-05-29 16:42 | PDOC PROGRESS REPORT ---
Subjective Date:: 05/29/20 Subjective:: EZIO SAMANIEGO is a 60 year old male past medical history of schizophrenia, bipolar depression, cocaine abuse, presenting to ED complaining of nausea, vomiting, diarrhea x1 week. He is stating that prior to dmission he passed out when he was walking, EMS called called, and route to the ED was tested for COVID-19 which was negative. In ED he was noted to have elevated liver enzymes, ferritin, D-dimer, C-reactive protein, troponins, repeat COVID-19 serology and interstitial infiltrates right greater than left. No PE. Patient denies any fever, chills, chest pain, shortness of breath, headache, vision changes, constipation or any urinary symptoms. Patient complaining of being depressed and would like his home meds to be restarted. Denies any suicidal or homicidal ideation. 05/27/2020. Overnight patient was noted to be hypothermic and hypotensive, this morning comfortably resting in the bed enjoying his breakfast, stating that feeling much better, denies any fever, chills, nausea, vomiting. 05/28/2020. Acute events overnight. Patient is on room air saturating WNL, patient could potentially be discharged home however patient appears to be confused today, and when asked where he lives he said he lives here at [facility], apparently patient has been having multiple admission to [facility] for suicidal ideation and has been seen by psychiatry here, was also IVC last time and transferred to [place]. We contacted his brother to see if he has a place, as per brother patient has an apartment but brother could not provide much information, patient could potentially be discharged home but I am not sure if it safe to discharge him until we find out if he has a place to go to. Discharge planning has been consulted. 05/29/2020. No acute events overnight. Patient today is more oriented, knows that he lives in [place], can tell me his home address, stating that he is living by himself, still waiting for his guide escort to get back to us to make sure that he is safely discharged home. Comfortably sitting in bed no apparent distress, on room air, denies any fever, chills, nausea, vomiting. Reason For Visit: COVID PNEUMONIA, ELEVATED TROPS Physical Exam Vital Signs: Temp Pulse Resp BP Pulse Ox 98.5 F 71 18 117/62 98 05/29/20 15:50 05/29/20 15:50 05/29/20 15:50 05/29/20 15:50 05/29/20 15:50 Intake & Output 05/28/20 05/29/20 05/30/20 06:59 06:59 06:59 Intake Total 3180 1520 260 Output Total 725 600 Balance 2455 920 260 Weight 83 kg 79.4 kg General appearance: PRESENT: no acute distress, well-developed, well-nourished Head exam: PRESENT: atraumatic, normocephalic Respiratory exam: PRESENT: clear to auscultation hal. ABSENT: rales, rhonchi, wheezes Cardiovascular exam: PRESENT: RRR. ABSENT: diastolic murmur, rubs, systolic murmur GI/Abdominal exam: PRESENT: normal bowel sounds, soft. ABSENT: distended, guarding, mass, organolmegaly, rebound, tenderness Neurological exam: PRESENT: alert, awake, oriented to person, oriented to place, CN II-XII grossly intact. ABSENT: motor sensory deficit Psychiatric exam: PRESENT: unusual affect Results Laboratory Results: 05/29/20 05:35 05/29/20 05:35 05/28/20 05/29/20 05/29/20 17:50 05:35 05:35 WBC 5.0 RBC 2.98 L Hgb 10.2 L Hct 28.8 L MCV 97 MCH 34.2 H MCHC 35.4 RDW 15.4 H Plt Count 161 Seg Neutrophils % 69.5 Sodium 141.0 Potassium 3.6 Chloride 112 H Carbon Dioxide 25 Anion Gap 4 L BUN 15 Creatinine 0.73 Est GFR ( Amer) > 60 Glucose 89 Calcium 8.1 L Ferritin 486.00 H Total Bilirubin 1.1 AST 66 H Alkaline Phosphatase 37 L C-Reactive Protein 56.0 H Total Protein 4.9 L Albumin 2.3 L Urine Color YELLOW Urine Appearance CLEAR Urine pH 7.0 Ur Specific [place] 1.016 Urine Protein NEGATIVE Urine Glucose (UA) NEGATIVE Urine Ketones NEGATIVE Urine Blood NEGATIVE Urine Nitrite NEGATIVE Ur Leukocyte Esterase NEGATIVE Urine WBC (Auto) 1 05/26/20 05/26/20 05/26/20 06:02 06:02 07:50 Creatine Kinase 2209 H CK-MB (CK-2) 2.76 Troponin I 0.150 0.150 05/26/20 05/26/20 05/27/20 15:50 20:55 04:01 Creatine Kinase 596 H CK-MB (CK-2) Troponin I 0.101 0.070 05/27/20 04:01 Creatine Kinase CK-MB (CK-2) Troponin I 0.042 Impressions: Chest X-Ray 05/26/20 06:50 IMPRESSION: Multifocal pneumonia consistent with given history of COVID positive testing and symptomatology. Chest/Abdomen CTA 05/26/20 07:17 IMPRESSION: Patchy bilateral alveolar and interstitial infiltrates right greater than left. Changes of obstructive lung disease. No CT angio evidence of thoracic aortic dissection or acute pulmonary emboli. Assessment and Plan - Diagnosis (1) Pneumonia due to COVID-19 virus Is this a current diagnosis for this admission?: Yes Plan: SPO2 WNL on RA. Afebrile. WBC WNL. Continue supplemental oxygen, steroids, empiric IV antibiotics, ivermectin, vitamin D, vitamin C, zinc, DuoNebs, pulmonary toileting. (2) Cocaine abuse Is this a current diagnosis for this admission?: Yes Plan: UA positive for cocaine. Advised on abstinence. Monitor for withdrawal. (3) Elevated troponin I level Is this a current diagnosis for this admission?: Yes Plan: Denies any chest pain. UA positive for cocaine. Likely related to cocaine abuse or Covid pneumonia. Troponins trending down. 2D echo 01/07/2018. LVEF WNL. Continue telemetry, antiplatelets and statins. Cardiology on board, no intervention planned at point please refer to note. (4) History of schizophrenia Is this a current diagnosis for this admission?: Yes Plan: Resume home meds. Outpatient PCP and psychiatry follow-up. (5) Bipolar depression Is this a current diagnosis for this admission?: Yes Plan: Denies any suicidal or homicidal ideation. Resume home meds. Outpatient PCP and psychiatry follow-up. - Time Time Spent with patient: 25-34 minutes Anticipated Discharge Disposition: Home with Home Health Anticipated Discharge Timeframe: within 24 hours
[2020-05-29] MEDS: ATORVASTATIN CALCIUM 40 MG TABLET PO SCH (21:21)
[2020-05-29] MEDS: OLANZAPINE 5 MG TABLET PO SCH (21:21)
[2020-05-29] MEDS: DIVALPROEX SODIUM 500 MG TAB.SR.24H PO SCH (21:22)
[2020-05-30] MEDS: DEXTROSE 5%-NORMAL SALINE 1,000 ML IV PRN (06:47)
[2020-05-30 07:09] LABS: HEMATOCRIT 34.4 % (37.9-51.0); HEMOGLOBIN 11.7 g/dL (13.5-17.0); MEAN CORPUSCULAR HEMOGLOBIN 32.9 pg (27.0-33.4); MEAN CORPUSCULAR HGB CONC 34.1 g/dL (32.0-36.0); MEAN CORPUSCULAR VOLUME 97 fl (80-97); PLATELET COUNT 212 10^3/uL (150-450); RED BLOOD COUNT 3.56 10^6/uL (4.35-5.55); RED CELL DISTRIBUTION WIDTH 15.6 % (11.5-14.0); WHITE BLOOD COUNT 8.1 10^3/uL (4.0-10.5)
[2020-05-30 07:34] LABS: APPEARANCE,URINE CLEAR; BILIRUBIN,URINE NEGATIVE (NEGATIVE); COLOR,URINE YELLOW; GLUCOSE, URINE 50 mg/dL (NEGATIVE); KETONES,URINE NEGATIVE (NEGATIVE); LEUKOCYTE ESTERASE,URINE NEGATIVE (NEGATIVE); NITRITE,URINE NEGATIVE (NEGATIVE); PROTEIN,URINE NEGATIVE (NEGATIVE); URINE SPECIFIC GRAVITY 1.013
[2020-05-30 07:42] LABS: ALBUMIN 2.9 g/dL (3.5-5.0); ALKALINE PHOSPHATASE 47 U/L (38-126); ASPARTATE AMINO TRANSFERASE 78 U/L (17-59); BILIRUBIN,DIRECT 0.4 mg/dL (0.0-0.4); BILIRUBIN,TOTAL 1.3 mg/dL (0.2-1.3); BLOOD UREA NITROGEN 11 mg/dL (7-20); CALCIUM 8.4 mg/dL (8.4-10.2); GLUCOSE 83 mg/dL (75-110); POTASSIUM 3.6 mmol/L (3.6-5.0); TOTAL PROTEIN 5.9 g/dL (6.3-8.2)
[2020-05-30 07:44] LABS: ANION GAP 6 (5-19); CARBON DIOXIDE 26 mmol/L (22-30); CHLORIDE 111 mmol/L (98-107)
[2020-05-30] MEDS: ASPIRIN 81 MG TABLET, ENT COATED PO SCH (10:07)
[2020-05-30] MEDS: DOCUSATE SODIUM 100 MG CAPSULE PO SCH (10:07)
[2020-05-30] MEDS: FAMOTIDINE 20 MG TABLET PO SCH (10:07)
[2020-05-30] MEDS: BENZTROPINE MESYLATE 1 MG TABLET PO SCH (10:07)
[2020-05-30] MEDS: DEXAMETHASONE SOD PHOS INJ 10 MG/1 ML VIAL IV SCH (10:07)
[2020-05-30] MEDS: FLUOXETINE HCL 20 MG CAPSULE PO SCH (10:07)
[2020-05-30] MEDS: ASCORBIC ACID 500 MG TABLET PO SCH (10:07)
[2020-05-30] MEDS: CHOLECALCIFEROL (D3) 1,000 UNIT (25 MCG) TABLET PO SCH (10:07)
[2020-05-30] MEDS: ZINC SULFATE 220 MG CAPSULE PO SCH (10:08)
[2020-05-30] MEDS: ENOXAPARIN SODIUM INJ 60 MG/0.6 ML DISP.SYRIN SUBCUT SCH (10:08)
[2020-05-30] MEDS: MULTIVITAMIN TABLET PO SCH (10:08)
[2020-05-30] MEDS: AZITHROMYCIN 250 MG TABLET PO SCH (10:08)
[2020-05-30] MEDS: CEFTRIAXONE SODIUM 1,000 MG in DEXTROSE 5%-WATER 50 ML IV SCH (11:02)
[2020-05-30 12:25] LABS: INTERNATIONAL RATION (INR) 1.15; PROTHROMBIN TIME 14.9 SEC (11.4-15.4)
[2020-05-30 12:26] LABS: PARTIAL THROMBOPLASTIN TIME 27.2 SEC (23.5-35.8)
[2020-05-30 12:29] LABS: D-DIMER 1.83 ug/mL (0.00-0.50)
[2020-05-30 12:32] LABS: FIBRINOGEN 474 mg/dL (209-497)
[2020-05-30 15:19] VITALS: BP 117/62
--- NOTE | 2020-06-03 14:37 | PDOC DISCHARGE SUMMARY ---
Impression - Admit/DC Date/PCP Admission Date/Primary Care Provider: 05/26/20 12:[facility] Discharge Date: 05/30/20 - Discharge Diagnosis (1) Pneumonia due to COVID-19 virus Is this a current diagnosis for this admission?: Yes (2) Cocaine abuse Is this a current diagnosis for this admission?: Yes (3) Elevated troponin I level Is this a current diagnosis for this admission?: Yes (4) History of schizophrenia Is this a current diagnosis for this admission?: Yes (5) Bipolar depression Is this a current diagnosis for this admission?: Yes - Additional Information Referrals: [facility] [Primary [facility]] - Follow up as needed Home Medications: Benztropine Mesylate [Cogentin 1 mg Tablet] 2 mg PO BID 05/26/20 Divalproex Sodium [Depakote ER] 1,000 mg PO QHS 05/26/20 Fluoxetine HCl 20 mg PO DAILY 05/26/20 Multivitamin 1 each PO DAILY 05/26/20 Olanzapine 20 mg PO QHS 05/26/20 History of Present Illiness History of Present Illness: EZIO SAMANIEGO is a 60 year old male past medical history of schizophrenia, bipolar depression, cocaine abuse, presenting to ED complaining of nausea, vomiting, diarrhea x1 week. He is stating that prior to dmission he passed out when he was walking, EMS called called, and route to the ED was tested for COVID-19 which was negative. In ED he was noted to have elevated liver enzymes, ferritin, D-dimer, C-reactive protein, troponins, repeat COVID-19 serology and interstitial infiltrates right greater than left. No PE. Patient denies any fever, chills, chest pain, shortness of breath, headache, vision changes, constipation or any urinary symptoms. Patient complaining of being depressed and would like his home meds to be restarted. Denies any suicidal or homicidal ideation. Hospital Course Hospital Course: (1) Pneumonia due to COVID-19 virus SPO2 WNL on RA. Afebrile. WBC WNL. Was started on supplemental oxygen, steroids, empiric IV antibiotics, ivermectin, vitamin D, vitamin C, zinc, DuoNebs, pulmonary toileting. (2) Cocaine abuse UA positive for cocaine. Advised on abstinence. No withdrawal symptoms during hospitalization. (3) Elevated troponin I level Denied any chest pain. UA positive for cocaine. Likely related to cocaine abuse or Covid pneumonia. 2D echo 01/07/2018. LVEF WNL. Admitted to telemetry started on antiplatelets and statins. Audiology consulted, no intervention planned at point please refer to note. (4) History of schizophrenia Resumed home meds. Outpatient PCP and psychiatry follow-up. (5) Bipolar depression Denied any suicidal or homicidal ideation. Resumed home meds. Outpatient PCP and psychiatry follow-up. Physical Exam Vital Signs: Temp Pulse Resp BP Pulse Ox 98.1 F 68 22 H 117/62 92 05/30/20 15:17 05/30/20 15:17 05/30/20 15:17 05/30/20 15:17 05/30/20 15:17 General appearance: PRESENT: no acute distress, well-developed, well-nourished Head exam: PRESENT: atraumatic, normocephalic Respiratory exam: PRESENT: clear to auscultation hal. ABSENT: rales, rhonchi, wheezes Cardiovascular exam: PRESENT: RRR. ABSENT: diastolic murmur, rubs, systolic murmur GI/Abdominal exam: PRESENT: normal bowel sounds, soft. ABSENT: distended, guarding, mass, organolmegaly, rebound, tenderness Neurological exam: PRESENT: alert, awake, oriented to person, oriented to place, CN II-XII grossly intact. ABSENT: motor sensory deficit Psychiatric exam: PRESENT: unusual affect Results Laboratory Results: WBC 8.1 10^3/uL (4.0-10.5) 05/30/20 06:45 RBC 3.56 10^6/uL (4.35-5.55) L 05/30/20 06:45 Hgb 11.7 g/dL (13.5-17.0) L 05/30/20 06:45 Hct 34.4 % (37.9-51.0) L 05/30/20 06:45 MCV 97 fl (80-97) 05/30/20 06:45 MCH 32.9 pg (27.0-33.4) 05/30/20 06:45 MCHC 34.1 g/dL (32.0-36.0) 05/30/20 06:45 RDW 15.6 % (11.5-14.0) H 05/30/20 06:45 Plt Count 212 10^3/uL (150-450) 05/30/20 06:45 Lymph % (Auto) 23.4 % (13-45) 05/29/20 05:35 [place] % (Auto) 6.9 % (3-13) 05/29/20 05:35 Eos % (Auto) 0.0 % (0-6) 05/29/20 05:35 Baso % (Auto) 0.2 % (0-2) 05/29/20 05:35 Absolute Neuts (auto) 3.5 10^3/uL (1.7-8.2) 05/29/20 05:35 Absolute Lymphs (auto) 1.2 10^3/uL (0.5-4.7) 05/29/20 05:35 Absolute Monos (auto) 0.3 10^3/uL (0.1-1.4) 05/29/20 05:35 Absolute Eos (auto) 0.0 10^3/uL (0.0-0.6) 05/29/20 05:35 Absolute Basos (auto) 0.0 10^3/uL (0.0-0.2) 05/29/20 05:35 Seg Neutrophils % 69.5 % (42-78) 05/29/20 05:35 PT 14.9 SEC (11.4-15.4) 05/30/20 11:35 INR 1.15 05/30/20 11:35 APTT 27.2 SEC (23.5-35.8) 05/30/20 11:35 Fibrinogen 474 mg/dL (209-497) 05/30/20 11:35 D-Dimer 1.83 ug/mL (0.00-0.50) H 05/30/20 11:35 Sodium 143.4 mmol/L (137-145) 05/30/20 06:45 Potassium 3.6 mmol/L (3.6-5.0) 05/30/20 06:45 Chloride 111 mmol/L (98-107) H 05/30/20 06:45 Carbon Dioxide 26 mmol/L (22-30) 05/30/20 06:45 Anion Gap 6 (5-19) 05/30/20 06:45 BUN 11 mg/dL (7-20) 05/30/20 06:45 Creatinine 0.78 mg/dL (0.52-1.25) 05/30/20 06:45 Est GFR ( Amer) > 60 (>60) 05/30/20 06:45 Est GFR (MDRD) Non-Af > 60 (>60) 05/30/20 06:45 Glucose 83 mg/dL (75-110) 05/30/20 06:45 POC Glucose 200 mg/dL (70-110) H 05/27/20 03:43 Lactic Acid 1.1 mmol/L (0.7-2.1) 05/27/20 04:01 Calcium 8.4 mg/dL (8.4-10.2) 05/30/20 06:45 Magnesium 1.8 mg/dL (1.6-2.3) 05/26/20 06:02 Ferritin 582.00 ng/mL (17.9-464.0) H 05/30/20 06:45 Total Bilirubin 1.3 mg/dL (0.2-1.3) 05/30/20 06:45 Direct Bilirubin 0.4 mg/dL (0.0-0.4) 05/30/20 06:45 Neonat Total Bilirubin Not Reportable 05/30/20 06:45 Neonat Direct Bilirubin Not Reportable 05/30/20 06:45 Neonat Indirect Bili Not Reportable 05/30/20 06:45 AST 78 U/L (17-59) H 05/30/20 06:45 ALT 42 U/L (<50) 05/30/20 06:45 Alkaline Phosphatase 47 U/L (38-126) 05/30/20 06:45 Lactate Dehydrogenase 552 U/L (120-246) H 05/26/20 12:55 Creatine Kinase 596 U/L (55-170) H 05/27/20 04:01 CK-MB (CK-2) 2.76 ng/mL (<4.55) 05/26/20 06:02 Troponin I 0.042 ng/mL 05/27/20 04:01 C-Reactive Protein 71.0 mg/L (<10.0) H 05/30/20 06:45 Total Protein 5.9 g/dL (6.3-8.2) L 05/30/20 06:45 Albumin 2.9 g/dL (3.5-5.0) L 05/30/20 06:45 Urine Color YELLOW 05/30/20 06:30 Urine Appearance CLEAR 05/30/20 06:30 Urine pH 7.0 (5.0-9.0) 05/30/20 06:30 Ur Specific [place] 1.013 05/30/20 06:30 Urine Protein NEGATIVE mg/dL (NEGATIVE) 05/30/20 06:30 Urine Glucose (UA) 50 mg/dL (NEGATIVE) H 05/30/20 06:30 Urine Ketones NEGATIVE mg/dL (NEGATIVE) 05/30/20 06:30 Urine Blood NEGATIVE (NEGATIVE) 05/30/20 06:30 Urine Nitrite NEGATIVE (NEGATIVE) 05/30/20 06:30 Urine Bilirubin NEGATIVE (NEGATIVE) 05/30/20 06:30 Urine Urobilinogen 4.0 mg/dL (<2.0) H 05/30/20 06:30 Ur Leukocyte Esterase NEGATIVE (NEGATIVE) 05/30/20 06:30 Urine WBC (Auto) 0 /HPF 05/30/20 06:30 Urine RBC (Auto) 0 /HPF 05/30/20 06:30 Squamous Epi Cells Auto <1 /HPF 05/28/20 17:50 Urine Mucus (Auto) RARE /LPF 05/30/20 06:30 Urine Ascorbic Acid NEGATIVE (NEGATIVE) 05/30/20 06:30 Urine Opiates Screen NEGATIVE 05/26/20 08:54 Urine Methadone Screen NEGATIVE 05/26/20 08:54 Ur Barbiturates Screen NEGATIVE 05/26/20 08:54 Ur Phencyclidine Scrn NEGATIVE 05/26/20 08:54 Ur Amphetamines Screen NEGATIVE 05/26/20 08:54 U Benzodiazepines Scrn NEGATIVE 05/26/20 08:54 Urine Cocaine Screen UNCONFIRMED POSITIVE 05/26/20 08:54 U Marijuana (THC) Screen NEGATIVE 05/26/20 08:54 Influenza A (Rapid) Cancelled 05/26/20 12:36 Influenza A (RT-PCR) NEGATIVE (NEGATIVE) 05/26/20 12:15 Influenza B (Rapid) Cancelled 05/26/20 12:36 Influenza B (RT-PCR) NEGATIVE (NEGATIVE) 05/26/20 12:15 RSV (RT-PCR) NEGATIVE (NEGATIVE) 05/26/20 12:15 SARS-CoV-2 Rap RNA(RT-PCR) POSITIVE (NEGATIVE) 05/26/20 12:15 Blood Type AB POSITIVE 05/26/20 12:55 05/26/20 05/26/20 05/26/20 06:02 07:50 15:50 CK-MB (CK-2) 2.76 Troponin I 0.150 0.150 0.101 05/26/20 05/27/20 20:55 04:01 CK-MB (CK-2) Troponin I 0.070 0.042 Impressions: Chest X-Ray 05/26/20 06:50 IMPRESSION: Multifocal pneumonia consistent with given history of COVID positive testing and symptomatology. Chest/Abdomen CTA 05/26/20 07:17 IMPRESSION: Patchy bilateral alveolar and interstitial infiltrates right greater than left. Changes of obstructive lung disease. No CT angio evidence of thoracic aortic dissection or acute pulmonary emboli. Stroke Is this a Stroke Patient?: No Acute Heart Failure Is this a Heart Failure Patient?: No
== END 2020-05-30 16:13 | disposition home health service (06) | DRG 177 ==
LOC: ER 05:49 → EH 12:04 → 3S 14:23
PROVIDERS: ADMIT Internal Medicine; ATTEND Internal Medicine
PROC: 5A09357 Assistance with Respiratory Ventilation, Less than 24 Consecutive Hours, Continuous Positive Airway Pressure (ICD-10-PCS; principal; 2020-05-26)
PROC: XW13325 Transfusion of Convalescent Plasma (Nonautologous) into Peripheral Vein, Percutaneous Approach, New Technology Group 5 (ICD-10-PCS; 2020-05-26)
PROC: B24BZZ4 Ultrasonography of Heart with Aorta, Transesophageal (ICD-10-PCS; 2020-05-28)
DX: U07.1 COVID-19 (principal); J12.82 Pneumonia due to coronavirus disease 2019; M62.82 Rhabdomyolysis; F14.10 Cocaine abuse, uncomplicated; R77.8 Other specified abnormalities of plasma proteins; F31.9 Bipolar disorder, unspecified; T40.5X1A Poisoning by cocaine, accidental (unintentional), initial encounter; E78.5 Hyperlipidemia, unspecified; I10 Essential (primary) hypertension; J44.9 Chronic obstructive pulmonary disease, unspecified; F25.9 Schizoaffective disorder, unspecified; I95.89 Other hypotension; E86.1 Hypovolemia; E78.00 Pure hypercholesterolemia, unspecified; E86.0 Dehydration; F17.210 Nicotine dependence, cigarettes, uncomplicated; Z91.5 Personal history of self-harm; Z79.899 Other long term (current) drug therapy
CPT/HCPCS: 36415; 36430; 71045; 71275; 80053; 80307; 81001; 82550; 82553; 82728; 82962; 83605; 83615; 83735; 84484; 85025; 85027; 85379; 85384; 85610; 85730; 86140; 86900; 86901; 87040; 93005; 93010; 93306; 94660; 96360; 99285; 0241U; C9803; J0696; J1100; J1650; J3490; J7030; J7042; J7060; J7121